=== PATIENT | female | born 1955 | race Caucasian/White ===

== ENCOUNTER 2022-03-23 01:40 | Outpatient (CLI) | payer BC, SELFPAY | END 2022-03-23 01:41 | disposition home or self-care (01) | PROVIDERS: Visit Provider Family Medicine | DX: F32.9 Major depressive disorder, single episode, unspecified (principal); F41.9 Anxiety disorder, unspecified | CPT/HCPCS: A0425; A0427 ==

== ENCOUNTER 2022-03-23 02:03 | Emergency (ER) | payer BC, SELFPAY ==
[2022-03-23 02:16] VITALS: BP 118/86; PULSE 88; RESP 22; TEMP 36.6; O2SAT 95; BMI 36.6
--- NOTE | 2022-03-23 02:56 | CRLHL7_ITS ---
For Patients: As a result of the Century Cures Act, medical imaging exams and procedure reports are released immediately into your electronic medical record. You may view this report before your referring provider. If you have questions, please contact your health care provider. CLINICAL HISTORY: Pain and swelling right lower extremity TECHNIQUE: A compression venous ultrasound exam was performed of the right lower extremity using hardy-scale imaging, color Doppler and spectral Doppler analysis. FINDINGS: Sonographic imaging of the right lower extremity demonstrates normal compressibility and color Doppler venous blood flow within the common femoral vein, deep femoral vein, and the proximal greater saphenous vein. Within the thigh, the femoral vein is patent and compressible. At a lower level, the popliteal and posterior tibial veins also show normal compressibility and color Doppler venous blood flow. Limited imaging of the contralateral groin demonstrates a normal spectral waveform and color Doppler venous blood flow within the left common femoral vein. IMPRESSION: Normal venous ultrasound exam. No evidence of deep vein thrombosis within the right lower extremity. Dictated by Libia Salinas MD @ 03/23/2022 4:22:59 AM (Electronically Signed)
--- NOTE | 2022-03-23 03:08 | CRLHL7_ITS ---
For Patients: As a result of the Cures Act, medical imaging exams and procedure reports are released immediately into your electronic medical record. You may view this report before your referring provider. If you have questions, please contact your health care provider. INDICATION: Swelling right knee. TECHNIQUE: Two-view study right knee. FINDINGS: No evidence of acute fracture or dislocation. No evidence of suprapatellar synovial effusion. Osteoarthritis medial joint compartment. IMPRESSION: 1. Osteoarthritis right knee. 2. No acute pathology. Dictated by Libia Salinas MD @ 03/23/2022 4:31:32 AM (Electronically Signed)
--- NOTE | 2022-03-23 03:18 | ED.NURSE ---
Lab in to draw blood.
[2022-03-23 03:31] LABS: Basophils Absolute Auto 0.04 K/uL (0.00-0.30); Basophils Percent Auto 0.7 % (0.0-3.0); Eosinophils Absolute Auto 0.13 K/uL (0.00-0.50); Eosinophils Percent Auto 2.3 % (0.0-7.0); Hematocrit 33.7 % (33.0-51.0); Hemoglobin* 10.5 gm/dL (12.0-16.0); Immature Granulocytes Abs Auto 0.01 K/uL (0.00-0.30); Lymphocytes Percent Auto 19.9 % (20-44); Mean Corpuscular HGB Conc 31 gm/dL (32-36); Mean Corpuscular Hemoglobin 28 pg (26-34); Mean Corpuscular Volume 90 fL (80-100); Monocytes Percent Auto 9.4 % (0.0-11.0); Neutrophils Percent Auto 67.5 % (42.0-72.0); Platelet Count* 226 K/uL (140-440); RDW Coefficient of Variation % 15.8 % (11.5-15.5); Red Blood Count 3.75 m/uL (4.00-5.20); White Blood Count* 5.63 K/uL (4.50-11.00)
--- NOTE | 2022-03-23 03:36 | ED.ANXIETY ---
HPI - Anxiety General Date Seen: 03/23/22 Chief Complaint: Unspecified Complaint, Adult Stated Complaint: Out of medications Time Seen by Provider: 03/23/22 02:56 Source: patient, EMS, RN notes reviewed and old records reviewed Mode of arrival: EMS Limitations: no limitations History of Present Illness HPI narrative: Sue is a very pleasant 66-year-old female with a history of anxiety and depression as well as chronic pain/pain medication overdose currently on Suboxone who comes to the emergency room via EMS for evaluation of anxiety. Initially patient states to me ?I need something for anxiety and I needed right now?. I do ask her to give me more history before we make a decision such as that and she is agreeable. Sue tell me that she has been feeling very down and lonely over the past weeks but is feeling a little bit worse in the past 3-4 days. She states that she is estranged from her daughter and although she is close to her sister, her sister lives far away in the [facility]. Currently Sue lives at [address] [facility] but in spite of people around her she does not socialize. In the past she had seen a counselor but has not done so recently. All of her medications including prescriptions for trazodone BuSpar Cymbalta go through Dr. Salcedo a physician at the [facility]. I do ask patient specifically about suicidality and she states that if she was not a [employer]ist that would likely be a possibility. She states that she really has nothing to live for and no purpose. She denies hallucinations and states ?I have all my faculties?. She is open to hospitalization and seeing a counselor. Patient has been out of what she describes as her Prozac for the last 4 days. She tells me that the anxiety had pre dated this event but is definitely worse. We do ascertain that she is actually on Cymbalta and not Prozac. She does admit to a few alcoholic drinks yesterday. She states that she has not been drinking daily but only a couple of times a week. Patient also notes that she has had a stuffed up nose. She has not had fever cough or sore throat. She notes that she is fully vaccinated with boosters against COVID. She notes however that when she is stuffed up and has a hard time breathing she feels like she cannot breathe and then she starts to panic. Upon EMS arrival they do note that she was hyperventilating complaining of not being able to breathe but with reassuring oxygen levels. Sue also states that she has been experiencing right knee pain which is odd for her. She states that occasionally gives out. She also notes that she has had unusual swelling in her right leg and foot. He states it was especially noticeable yesterday. She cannot think of any trauma to this area and denies pain. This has not happened to her in the past. She admits that she has not been active and has been just sitting in her apartment. MD complaint: anxiety Onset (ago): day(s) Related Data Home Medications Medication Instructions Recorded Confirmed Suboxone 03/23/22 buspirone 10 mg tablet 20 mg PO TID 03/23/22 03/23/22 cyclobenzaprine 5 mg tablet 5 mg PO Q8H 03/23/22 03/23/22 duloxetine 60 mg capsule,delayed 60 mg PO DAILY 03/23/22 03/23/22 release fluticasone propionate 50 2 spray INTRANASAL DAILY PRN 03/23/22 03/23/22 mcg/actuation nasal spray,suspension (Allergy Relief (fluticasone)) furosemide 20 mg tablet 20 mg PO QAM 03/23/22 03/23/22 loratadine 10 mg tablet 10 mg PO DAILY 03/23/22 03/23/22 metoprolol tartrate 50 mg tablet 50 mg PO Q12H 03/23/22 03/23/22 nystatin 100,000 unit/gram topical 1 applic TOPICAL TID 03/23/22 03/23/22 powder pravastatin 20 mg tablet 20 mg PO .QHS 03/23/22 03/23/22 trazodone 100 mg tablet 200 mg PO .QHS 03/23/22 03/23/22 Allergies Allergy/AdvReac Type Severity Reaction Status Date / Time methylprednisolone Allergy Intermediate gi upset, Verified 03/23/22 02:36 tachycardia hydromorphone [From Dilaudid] Allergy Mild itching Verified 03/23/22 02:36 NSAIDS (Non-Steroidal Allergy Mild gastric Verified 03/23/22 02:36 Anti-Inflamma byass Review of Systems Status of ROS: Reports: 10 or more systems reviewed and unremarkable except as noted in History and below Const: Reports: change in weight (History of gastric bypass. Notes that she has gained weight back.); Denies: fever or chills Eyes: Denies: change in vision ENMT: Denies: throat pain or ear pain Cardio: Reports: swelling of feet/ankles (Right foot and lower leg have been swollen over the past 48 hours.) and shortness of breath with exertion (When she feels like she cannot breathe through her nose.); Denies: chest pain Resp: Reports: shortness of breath (When she feels like she cannot breathe through her nose.) GI: Denies: abdominal pain or vomiting : Denies: painful urination Musculo: Reports: other (Right knee with pain on the medial aspect and occasionally gives out.); Denies: back pain or extremity pain Neuro: Denies: headache, numbness in extremities or weakness in extremities Psych: Reports: anxiety, panic attacks, hopelessness and loss of interest; Denies: visual hallucinations or auditory hallucinations [facility] Medical History (Updated 03/23/22 @ 08:10 by Holli Obando MD) Achlorhydria Alcohol abuse Alcohol use disorder, severe, dependence Anxiety state, unspecified B12 deficiency Bereavement Carpal tunnel syndrome Controlled substance agreement broken 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 Dysthymic disorder Fibromyalgia Gastritis Gastroduodenitis Gout, unspecified Major depressive disorder, recurrent severe without psychotic features Morbid (severe) obesity due to excess calories Symptomatic menopausal or female climacteric states Tobacco use disorder Unspecified essential hypertension Surgical History (Updated 03/23/22 @ 02:46 by Mag Carter RN) H/O gastric bypass Social History Smoking Status: Former smoker Do you use any of these nicotine containing products: None Second hand tobacco smoke exposure: No How often do you have a drink containing alcohol: 2-3 times a week How many standard drinks containing alcohol do you have on a typical day: 1 or 2 How often do you have six or more drinks on one occasion: Never AUDIT-C Alcohol total score: 3 Non-prescribed substance use: denies use service: No Exam Const: Vital Signs, click to edit/add: Vital Signs - 24 hr 03/23/22 02:16 03/23/22 05:47 Temperature 97.8 F Pulse Rate [Right] 88 92 Respiratory Rate 22 14 Blood Pressure [Le ft Upper Arm] 118/86 138/93 H Pulse Oximetry 95 96 Course Course Hospital Course: Sue presents with a variety of complaints. First she is experiencing depression and hopelessness. After our discussion she is centrally is stating that she will not commit suicide only because she is a [employer]ist. She is admittedly lonely. I do think she would benefit from mental health assessment by DEC. We will give her Cymbalta 60 mg as she has been without this for 4 days. At this time I would like to hold back from giving her anything stronger such as Ativan with her history of alcohol abuse and addictive tendencies. In regards to her right leg swelling I do think it would be important to obtain Doppler to rule out any evidence of a DVT given her inactivity, asymmetric swelling and sudden on set. Given her alcohol use and the fact that I do not see any recent visits to the medical clinic or ED I will also order laboratory values to include a CBC, comprehensive panel, urinalysis, ETOH, vitamin-D, magnesium, TSH. Will also administer multivitamin, folic acid, thiamin. Reevaluation(s) Reevaluation #1: Patient is ambulating to the bathroom. Seems to be feeling better. Radiology now present for ultrasound of the lower extremity. She has not made any further requests for anti anxiety medication. Time: 03:45 Reevaluation #2: Patient is noted to be sleeping soundly. She has received Cymbalta 60 mg, thigh min, folic acid and a multivitamin. Laboratory values are returning at this time. They are still waiting on a DEC assessment. Time: 04:00 Reevaluation #3: I have spoken with patient in regards to all of her complaints tonight. At this time we discussed her laboratory values and do place an Jsu wrap on her right knee. She states that this does seem to help. Still waiting on mental health assessment. Patient does states she would like to stay with us in the emergency room as long as possible. She does agree that she is feeling better this morning. Time: 07:00 Additional Reevaluation(s): 0815-patient is feeling better this morning. She is not agitated and agrees that she feels improved. She was able to sleep after having received her Cymbalta. I did again go over list of her diagnoses and my suggestions for follow-up care. We will need to provide her with about her for the taxi this morning. She feels comfortable going home as does the mental health affiliate manager. Contracts for safety. Vital Signs Vital signs: Initial Vital Signs Temperature 97.8 F 03/23/22 02:16 Temperature Source Temporal Artery Scan 03/23/22 02:16 Pulse Rate 88 03/23/22 02:16 Respiratory Rate 22 03/23/22 02:16 Blood Pressure 118/86 03/23/22 02:16 Blood Pressure Mean 96 03/23/22 02:16 Blood Pressure Position High-Fowlers 03/23/22 02:16 Pulse Oximetry 95 03/23/22 02:16 Oxygen Delivery Method 03/23/22 02:16 Vital Signs Temperature 97.8 F 03/23/22 02:16 Pulse Rate 88 03/23/22 02:16 Respiratory Rate 22 03/23/22 02:16 Blood Pressure 118/86 03/23/22 02:16 Pulse Oximetry 95 03/23/22 02:16 Temperature 97.8 F 03/23/22 02:16 Pulse Rate 92 03/23/22 05:47 Respiratory Rate 14 03/23/22 05:47 Blood Pressure 138/93 H 03/23/22 05:47 Pulse Oximetry 96 03/23/22 05:47 MDM - Anxiety MDM Narrative Medical decision making narrative: 1. Anxiety-we did through many hours for mental health assessment which is taking place currently. Patient does agree that she feels better this morning. She did receive Cymbalta 60 mg p.o.. She had been missing this medication for approximately 4 days. Upon her presentation and multiple times during our interview she did ask for something to help calm her down. With her history of alcohol abuse and normal vital signs I did not want to use Ativan. I asked patient to try Cymbalta 1st and fortunately she was able to successfully sleep through most of the night. Currently awaiting mental health assessors recommendations. 2. Lower extremity edema-ultrasound is negative for DVT. 3. Right knee pain-. Knee x-ray does show osteoarthritis. I did place a large Jus wrap the patient states that this seems to feel good. I would recommend physical therapy for strengthening. Will refer to her primary MD. 4. Alcohol use -alcohol level is 0 and LFTs are within normal limits. Did talk to the patient about the importance of avoiding alcohol as it is a depressant and will actually make her depression anxiety worse. 5. Anemia-hemoglobin of 10.5. Patient notes a occasional blood in her stools when she has multiple loose stools in a day. She has no abdominal pain at this time. This has been intermittent. She has not had a colonoscopy since 2012. I am asking that she speak with her primary MD about colonoscopy. Other cell lines reassuring with a normal white count and platelets. 6. Vitamin-D insufficiency-patient has a reading of 19 today. She is given 25 mcg of vitamin-D in the ED as a dose of magnesium 400 mg p.o.. Her magnesium today is 1.7. 7. Nasal congestion-patient is negative for COVID at this time. 8. Disposition- mental health assessment has been accomplished. Suggestions include decreasing isolation time by increasing activities especially through the jain. Suggestion also for returning back to the chemical dependency program previously attended. Return to the emergency room for worsening symptoms and as needed. Medical Records Attestation: I reviewed the patient's medical records. Lab Data Attestation: I reviewed the patient's lab results. Labs: Lab Results 03/23/22 03/23/22 03/23/22 Range/Units 03:15 03:22 03:22 WBC (4.50-11.00) K/uL RBC (4.00-5.20) m/uL Hgb (12.0-16.0) gm/dL Hct (33.0-51.0) % MCV (80-100) fL MCH (26-34) pg MCHC (32-36) gm/dL RDW Coeff of Manny (11.5-15.5) % Plt Count (140-440) K/uL Neut % (Auto) (42.0-72.0) % Lymph % (Auto) (20-44) % [place] % (Auto) (0.0-11.0) % Eos % (Auto) (0.0-7.0) % Baso % (Auto) (0.0-3.0) % Neut # (Auto) (1.7-7.0) K/uL Lymph # (Auto) (0.90-2.90) K/uL [place] # (Auto) (0.00-0.90) K/UL Eos # (Auto) (0.00-0.50) K/uL Baso # (Auto) (0.00-0.30) K/uL Abs Immat Gran (auto) (0.00-0.30) K/uL Sodium 138 (135-149) mmol/L Potassium 4.2 (3.6-5.1) mmol/L Chloride 104 (96-114) mmol/L Carbon Dioxide 27 (20-32) mmol/L BUN 13 (7-30) mg/dL Creatinine 0.6 (0.5-1.5) mg/dL Estimated Creat Clear 43.77 Glucose 120 H (60-115) mg/dL Calcium 8.9 (8.4-10.6) mg/dL Magnesium 1.7 (1.5-2.6) mg/dL Total Bilirubin 0.6 (0.1-1.5) mg/dL AST 20 (12-35) U/L ALT 14 (4-35) U/L Alkaline Phosphatase 72 (40-150) U/L Total Protein 6.7 (6.0-8.3) g/dL Albumin 4.3 (3.3-5.0) g/dL 25-OH Vitamin D Total (30-80) ng/mL TSH 1.010 (0.270-4.200) uIU/mL Ethyl Alcohol 0.01 (0.01-0.03) % SARS-CoV-2 (PCR) Negative SARS-CoV-2 (Negative) Influenza Type A (PCR) NEGATIVE (Negative) Influenza Type B (PCR) NEGATIVE (Negative) 03/23/22 03/23/22 Range/Units 03:22 03:22 WBC 5.63 (4.50-11.00) K/uL RBC 3.75 L (4.00-5.20) m/uL Hgb 10.5 L (12.0-16.0) gm/dL Hct 33.7 (33.0-51.0) % MCV 90 (80-100) fL MCH 28 (26-34) pg MCHC 31 L (32-36) gm/dL RDW Coeff of Manny 15.8 H (11.5-15.5) % Plt Count 226 (140-440) K/uL Neut % (Auto) 67.5 (42.0-72.0) % Lymph % (Auto) 19.9 L (20-44) % [place] % (Auto) 9.4 (0.0-11.0) % Eos % (Auto) 2.3 (0.0-7.0) % Baso % (Auto) 0.7 (0.0-3.0) % Neut # (Auto) 3.80 (1.7-7.0) K/uL Lymph # (Auto) 1.10 (0.90-2.90) K/uL [place] # (Auto) 0.50 (0.00-0.90) K/UL Eos # (Auto) 0.13 (0.00-0.50) K/uL Baso # (Auto) 0.04 (0.00-0.30) K/uL Abs Immat Gran (auto) 0.01 (0.00-0.30) K/uL Sodium (135-149) mmol/L Potassium (3.6-5.1) mmol/L Chloride (96-114) mmol/L Carbon Dioxide (20-32) mmol/L BUN (7-30) mg/dL Creatinine (0.5-1.5) mg/dL Estimated Creat Clear Glucose (60-115) mg/dL Calcium (8.4-10.6) mg/dL Magnesium (1.5-2.6) mg/dL Total Bilirubin (0.1-1.5) mg/dL AST (12-35) U/L ALT (4-35) U/L Alkaline Phosphatase (40-150) U/L Total Protein (6.0-8.3) g/dL Albumin (3.3-5.0) g/dL 25-OH Vitamin D Total 19 L (30-80) ng/mL TSH (0.270-4.200) uIU/mL Ethyl Alcohol (0.01-0.03) % SARS-CoV-2 (PCR) (Negative) Influenza Type A (PCR) (Negative) Influenza Type B (PCR) (Negative) Imaging Data Right LE US: Attestation: I have reviewed the pertinent imaging results. Radiologist's impression: No evidence of DVT knee XR: Attestation: I have reviewed the pertinent imaging results. My impression: No acute findings. Radiologist's impression: Osteoarthritis. No acute findings Discharge Plan Discharge Clinical Impression: Anxiety, Vitamin D insufficiency, Edema of right lower extremity, Anemia, Acute pain of right knee, Congested nose, Depression Patient Disposition: Home, Self-Care Condition: Improved Additional Instructions: 1. Anxiety-continue Cymbalta. Please try to failure prescription today. The mental health affiliate manager suggests you decrease isolation by starting more activities such as with your jain. She also suggest returning to your chemical dependency support group and restarting that program. Return to the emergency room for worsening symptoms. 2. Lower extremity edema-ultrasound is negative for DVT. 3. Right knee pain-. Knee x-ray does show osteoarthritis. Use Jus wrap around the knee as needed for comfort. I would suggest checking with your primary MD for possibility of physical therapy. 4. Alcohol use -I would avoid alcohol as this is a depressant and could be making your symptoms worse. 5. Anemia-hemoglobin of 10.5. Check with your primary MD about the need for a colonoscopy. 6. Vitamin-D insufficiency-your level was 19 today. Magnesium was 1.7. We did give you a dose of vitamin-D as well as magnesium. Suggest checking with your doctor about the need for daily vitamin D/magnesium dosing. 7. Nasal congestion-you are negative for COVID. Would suggest the use of Flonase for your nasal congestion. Activity Level: Activity as Tolerated Prescriptions: No Action metoprolol tartrate 50 mg tablet 50 mg PO Q12H 0RF loratadine 10 mg tablet 10 mg PO DAILY 0RF nystatin 100,000 unit/gram powder 1 applic topical TID 0RF trazodone 100 mg tablet 200 mg PO .QHS 0RF pravastatin 20 mg tablet 20 mg PO .QHS 0RF furosemide 20 mg tablet 20 mg PO QAM 0RF buspirone 10 mg tablet 20 mg PO TID 0RF Label Comments: TAKE 2 TABLETS BY MOUTH THREE TIMES DAILY Suboxone 0RF cyclobenzaprine 5 mg tablet 5 mg PO Q8H 0RF fluticasone propionate [Allergy Relief (fluticasone)] 50 mcg/actuation spray,suspension 2 spray intranasal DAILY [id number] Rx Instructions: administer into each nostril duloxetine 60 mg capsule,delayed release(DR/EC) 60 mg PO DAILY 0RF Follow Up/Referrals: Provider,Not a Local [Primary Care Provider] - Stand Alone Forms: [employer] Info Instructions
[2022-03-23 03:40] LABS: Slide Review Reflex No
[2022-03-23 03:48] LABS: Albumin* 4.3 g/dL (3.3-5.0); Chloride* 104 mmol/L (96-114); Potassium* 4.2 mmol/L (3.6-5.1); Sodium* 138 mmol/L (135-149)
[2022-03-23 03:50] LABS: Aspartate Amino Transferase* 20 U/L (12-35); Bilirubin Total* 0.6 mg/dL (0.1-1.5); Carbon Dioxide* 27 mmol/L (20-32); Creatinine* 0.6 mg/dL (0.5-1.5); Est. Creatinine Clearance* 43.77; Estimated Glomerular Filt Rate 98.93
[2022-03-23 03:51] LABS: Alanine Aminotransferase* 14 U/L (4-35); Alkaline Phosphatase* 72 U/L (40-150); Blood Urea Nitrogen* 13 mg/dL (7-30); Calcium* 8.9 mg/dL (8.4-10.6); Glucose* 120 mg/dL (60-115); Magnesium* 1.7 mg/dL (1.5-2.6); Total Protein* 6.7 g/dL (6.0-8.3)
[2022-03-23 03:52] LABS: Ethanol* 0.01 % (0.01-0.03)
[2022-03-23] MEDS: DULOXETINE 30 MG CAPSULE DR 60 MG PO (03:57)
[2022-03-23] MEDS: FOLIC ACID 1 MG TABLET PO (03:58)
[2022-03-23] MEDS: THIAMINE 100 MG TABLET PO (03:58)
[2022-03-23] MEDS: MULTIVITAMIN/MINERALS 1 TABLET 1 TAB PO (03:58)
[2022-03-23 04:07] LABS: PCR FLU A NEGATIVE (Negative); PCR FLU B NEGATIVE (Negative); SARS PCR* Negative SARS-CoV-2 (Negative)
[2022-03-23 04:40] LABS: Vitamin D 25 Hydroxy* 19 ng/mL (30-80)
[2022-03-23 05:47] VITALS: BP 138/93; PULSE 92; RESP 14; O2SAT 96
[2022-03-23] MEDS: MAGNESIUM OXIDE 400 MG TABLET PO (08:35)
== END 2022-03-23 09:27 | disposition home or self-care (01) ==
PROVIDERS: Emergency Provider Family Medicine
DX: F41.9 Anxiety disorder, unspecified (principal); R60.0 Localized edema; M25.561 Pain in right knee; R09.81 Nasal congestion
CPT/HCPCS: 36415; 73560; 80053; 81001; 82077; 82306; 83735; 84443; 85025; 87502; 87635; 93971; 99284; 99285; A9153; A9270

== ENCOUNTER 2022-04-08 10:17 | Outpatient (CLI) | payer BC, SELFPAY | END 2022-04-08 10:18 | disposition home or self-care (01) | LOC: AMB 04-22 12:44 | PROVIDERS: PCP Family Medicine; Visit Provider Family Medicine | DX: R06.09 Other forms of dyspnea (principal) | CPT/HCPCS: A0425; A0427 ==

== ENCOUNTER 2022-04-08 10:40 | Emergency (ER) | payer BC, SELFPAY ==
[2022-04-08 10:50] VITALS: BP 139/83; PULSE 91; RESP 18; TEMP 36.8; O2SAT 96; BMI 35.7
--- NOTE | 2022-04-08 11:02 | CRLHL7_ITS ---
For Patients: As a result of the 21st Century Cures Act, medical imaging exams and procedure reports are released immediately into your electronic medical record. You may view this report before your referring provider. If you have questions, please contact your health care provider. INDICATION: Leg swelling and dyspnea. COMPARISON: There are no prior transaxial studies of the chest, abdomen and pelvis TECHNIQUE: CT examination of the chest, abdomen and pelvis was performed following the uneventful intravenous administration of 95 cc of Omnipaque 350. Thin section axial images were obtained from the thoracic inlet through the pubic symphysis. Oral contrast was not administered. Sagittal and coronal reformatted imaging was performed. The chest portion of the study was performed as a pulmonary angiogram Please note that all CT scans at this facility use dose modulation, iterative reconstruction, and/or weight-based dosing when appropriate to reduce radiation dose to as low as reasonably achievable. FINDINGS: CHEST: Heart size normal. Mildly prominent mediastinal lymph nodes likely reactive. Hiatal hernia with reflux. Fluid is seen up to the thoracic inlet. There are atherosclerotic vascular calcifications. No pericardial effusion. Basilar lung opacities are likely related to atelectasis. A few nodules are identified at the lung bases the largest of which measures 6.5 millimeters in greatest dimension. A follow-up CT in 6 months is advised to reassess the nodules and the lymph nodes. No pleural effusion or pneumothorax. PULMONARY ARTERY DISTRIBUTION: There is no indication of pulmonary embolus LIVER/BILIARY SYSTEM:The liver is normal in size and configuration. There is no focal mass and there is no intra- or extra hepatic biliary ductal dilatation.Hepatic steatosis. Surgically absent gallbladder ADRENALS: Normal KIDNEYS, URETERS and BLADDER:The kidneys appear normal. No visible mass, calculus or hydronephrosis. The ureters and bladder as visualized appear normal. SPLEEN:Normal appearance. PANCREAS: Fatty infiltrated but otherwise unremarkable RETROPERITONEUM and MESENTERY: There is no mass, adenopathy or aortic aneurysm. Atherosclerotic vascular calcifications GASTROINTESTINAL SYSTEM: There is no evidence of diverticulitis, colitis, mechanical obstruction, or appendicitis. The small bowel as visualized appears normal.Mild fecal retention and scattered diverticulosis. Postsurgical changes related to gastric bypass. PELVIS: No mass, adenopathy or free fluid.No inguinal lymphadenopathy OSSEOUS STRUCTURES and ABDOMINAL WALL: Demineralization and degenerative change. No acute fracture or destructive process. No significant abdominal wall defect. OTHER: No free fluid or free air. IMPRESSION: 1. CHEST: There is no indication of pulmonary embolus. Mild bibasilar atelectasis. Mildly prominent mediastinal lymph nodes in a few scattered lung nodules for which a six-month follow-up CT is advised. No pleural effusion or pneumothorax. The esophagus is fluid-filled and mildly dilated probably due to reflux. other visible etiology for bilateral lower extremity swelling. Incidental nonacute appearing findings as above Please note that all CT scans at this facility use dose modulation, iterative reconstruction, and/or weight-based dosing when appropriate to reduce radiation dose to as low as reasonably achievable. Dictated by Caleb Lezama MD @ 04/08/2022 1:49:42 PM (Electronically Signed)
--- NOTE | 2022-04-08 11:02 | CRLHL7_ITS ---
For Patients: As a result of the Century Cures Act, medical imaging exams and procedure reports are released immediately into your electronic medical record. You may view this report before your referring provider. If you have questions, please contact your health care provider. INDICATION: Right leg swelling, shortness of breath. TECHNIQUE: Ultrasound venous duplex lower right extremity. Compression venous exam was performed using hardy-scale, color Doppler, and spectral Doppler analysis. COMPARISON: None. FINDINGS: Deep veins: Sonographic imaging demonstrates the right common femoral, deep femoral, superficial femoral, popliteal, posterior tibial and the contralateral left common femoral veins to be fully compressible with normal color Doppler blood flow. Superficial veins: Greater saphenous vein is fully compressible. No popliteal cyst. IMPRESSION: No evidence of deep venous thrombosis. Dictated by Jed Wilcox MD @ 04/08/2022 12:08:31 PM (Electronically Signed)
--- NOTE | 2022-04-08 11:07 | ED_ITS ---
HPI - General Adult General Time Seen by Provider: 11:07 Date Seen: 04/08/22 Chief complaint: Anxiety Stated complaint: Difficulty breathing Time Seen by Provider: 04/08/22 10:44 Source: patient Mode of arrival: EMS Limitations: no limitations History of Present Illness HPI narrative: Patient is a 66 year white female [facility] who comes in [facility] ambulance, with shortness of breath. She has had this happen at night, on weekends, she was going to the [facility] today and felt short of breath. She feels she may have an anxiety component. She has been battling with a swollen right leg for the last few weeks. Does not have a history of significant heart failure. She was evaluated in the ER had a negative ultrasound of the right lower extremity. She has no abdominal pain no chest pain currently. She had no chest pain this morning. No fevers chills, or COVID symptoms. Related Data Home Medications Medication Instructions Recorded Confirmed Suboxone 03/23/22 buspirone 10 mg tablet 20 mg PO TID 03/23/22 03/23/22 cyclobenzaprine 5 mg tablet 5 mg PO Q8H 03/23/22 03/23/22 duloxetine 60 mg capsule,delayed 60 mg PO DAILY 03/23/22 03/23/22 release fluticasone propionate 50 2 spray INTRANASAL DAILY PRN 03/23/22 03/23/22 mcg/actuation nasal spray,suspension (Allergy Relief (fluticasone)) furosemide 20 mg tablet 20 mg PO QAM 03/23/22 03/23/22 loratadine 10 mg tablet 10 mg PO DAILY 03/23/22 03/23/22 metoprolol tartrate 50 mg tablet 50 mg PO Q12H 03/23/22 03/23/22 nystatin 100,000 unit/gram topical 1 applic TOPICAL TID 03/23/22 03/23/22 powder pravastatin 20 mg tablet 20 mg PO .QHS 03/23/22 03/23/22 trazodone 100 mg tablet 200 mg PO .QHS 03/23/22 03/23/22 Allergies Allergy/AdvReac Type Severity Reaction Status Date / Time methylprednisolone Allergy Intermediate gi upset, Verified 03/23/22 02:36 tachycardia hydromorphone [From Dilaudid] Allergy Mild itching Verified 03/23/22 02:36 NSAIDS (Non-Steroidal Allergy Mild gastric Verified 03/23/22 02:36 Anti-Inflamma byass Review of Systems Status of ROS: Reports: 10 or more systems reviewed and unremarkable except as noted in History and below [facility] Medical History Achlorhydria Alcohol abuse Alcohol use disorder, severe, dependence Anxiety state, unspecified B12 deficiency Bereavement Carpal tunnel syndrome Controlled substance agreement broken 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 Dysthymic disorder Fibromyalgia Gastritis Gastroduodenitis Gout, unspecified Major depressive disorder, recurrent severe without psychotic features Morbid (severe) obesity due to excess calories Symptomatic menopausal or female climacteric states Tobacco use disorder Unspecified essential hypertension Surgical History H/O gastric bypass Social History Smoking Status: Former smoker Do you use any of these nicotine containing products: None Second hand tobacco smoke exposure: No How often do you have a drink containing alcohol: 2-3 times a week How many standard drinks containing alcohol do you have on a typical day: 1 or 2 How often do you have six or more drinks on one occasion: Never AUDIT-C Alcohol total score: 3 Non-prescribed substance use: denies use service: No Exam Narrative: Exam Narrative: Objective: The patient has stable vital signs, appears in no apparent distress, feels back to baseline. Vital signs as above HEENT is unremarkable, no scleral icterus, mouth clear no facial asymmetry Neck is supple Chest is clear no rales or wheezing Heart rhythm regular without murmur Abdomen benign soft obese nontender, no prominent masses Extremities show 2+ edema in the right lower extremity 1+ to trace in the left, no palpable venous cords in the right lower extremity, no discoloration or cellulitic change Skin is warm and dry Neurologic is nonfocal Const: Vital Signs, click to edit/add: Vital Signs - 24 hr 04/08/22 10:50 04/08/22 14:06 04/08/22 15:05 Temperature 98.2 F Pulse Rate [Right Pulse Oximeter] 91 92 90 Respiratory Rate 18 18 18 Blood Pressure [Ri ght Upper Arm] 139/83 154/79 H 134/88 Pulse Oximetry 96 97 94 Course Vital Signs Vital signs: Initial Vital Signs Temperature 98.2 F 04/08/22 10:50 Temperature Source Temporal Artery Scan 04/08/22 10:50 Pulse Rate 91 04/08/22 10:50 Respiratory Rate 18 04/08/22 10:50 Blood Pressure 139/83 04/08/22 10:50 Blood Pressure Mean 101 04/08/22 10:50 Blood Pressure Position Sitting 04/08/22 10:50 Pulse Oximetry 96 04/08/22 10:50 Oxygen Delivery Method 04/08/22 10:50 Vital Signs Temperature 98.2 F 04/08/22 10:50 Pulse Rate 91 04/08/22 10:50 Respiratory Rate 18 04/08/22 10:50 Blood Pressure 139/83 04/08/22 10:50 Pulse Oximetry 96 04/08/22 10:50 Temperature 98.2 F 04/08/22 10:50 Pulse Rate 90 04/08/22 15:05 Respiratory Rate 18 04/08/22 15:05 Blood Pressure 134/88 04/08/22 15:05 Pulse Oximetry 94 04/08/22 15:05 Medical Decision Making [facility] Narrative Medical decision making narrative: Patient's complex medical history, given this and given her shortness of breath I think doing a troponin would be appropriate, as well as CT scan of the chest, COVID test. Because of her swelling in her leg would do a CT of her abdomen pelvis with contrast make sure there is no obstruction, repeat an ultrasound of her leg. Ativan for anxiety. Laboratory studies as well. Differential for the shortness of breath be acute coronary syndrome, PE, pulmonary insult, anxiety, metabolic disorder. Addendum: The patient's EKG by my read shows normal sinus rhythm normal EKG. Chest abdomen and pelvic CT scan showed no marked abnormality she does have some pulmonary nodules that need follow-up in 6-9 months. But no acute changes today. No reason to explain any venous obstruction to the right lower extremity given it is swollen nature. Negative venous ultrasound of the right lower e xtremity. Patient feels better with the IV Ativan. Would recommend she discuss ongoing mental health and anxiety management with her primary care physician as well as follow-up on her right leg swelling. She was in agreement with this. Addendum: Patient's EKG by my read shows normal sinus rhythm nor normal EKG Lab Data Labs: Lab Results 04/08/22 04/08/22 04/08/22 Range/Units 12:00 12:00 12:00 WBC 5.61 (4.50-11.00) K/uL RBC 3.66 L (4.00-5.20) m/uL Hgb 10.1 L (12.0-16.0) gm/dL Hct 33.0 (33.0-51.0) % MCV 90 (80-100) fL MCH 28 (26-34) pg MCHC 31 L (32-36) gm/dL RDW Coeff of Manny 15.5 (11.5-15.5) % Plt Count 207 (140-440) K/uL Neut % (Auto) 70.9 (42.0-72.0) % Lymph % (Auto) 18.2 L (20-44) % Crawford % (Auto) 8.6 (0.0-11.0) % Eos % (Auto) 1.4 (0.0-7.0) % Baso % (Auto) 0.7 (0.0-3.0) % Neut # (Auto) 3.98 (1.7-7.0) K/uL Lymph # (Auto) 1.00 (0.90-2.90) K/uL Crawford # (Auto) 0.50 (0.00-0.90) K/UL Eos # (Auto) 0.08 (0.00-0.50) K/uL Baso # (Auto) 0.04 (0.00-0.30) K/uL Abs Immat Gran (auto) 0.01 (0.00-0.30) K/uL Sodium 137 (135-149) mmol/L Potassium 4.4 (3.6-5.1) mmol/L Chloride 105 (96-114) mmol/L Carbon Dioxide 26 (20-32) mmol/L BUN 16 (7-30) mg/dL Creatinine 0.7 (0.5-1.5) mg/dL Estimated Creat Clear 43.77 Estimated GFR 95 ml/min Glucose 124 H (60-115) mg/dL Lactate 1.4 (0.5-1.9) mmol/L Calcium 8.9 (8.4-10.6) mg/dL Total Bilirubin 0.8 (0.1-1.5) mg/dL Direct Bilirubin 0.2 (0.0-0.5) mg/dL AST 26 (12-35) U/L ALT 14 (4-35) U/L Alkaline Phosphatase 86 (40-150) U/L C-Reactive Protein < 0.5 L (0.5-1.0) mg/dL NT-Pro-B Natriuret Pep 952 H (0-125) PG/mL Total Protein 7.2 (6.0-8.3) g/dL Albumin 4.3 (3.3-5.0) g/dL Ethyl Alcohol < 0.01 L (0.01-0.03) % SARS-CoV-2 (PCR) (Negative) POC Troponin I (0.01-0.04) ng/ml 04/08/22 04/08/22 Range/Units 12:00 12:00 WBC (4.50-11.00) K/uL RBC (4.00-5.20) m/uL Hgb (12.0-16.0) gm/dL Hct (33.0-51.0) % MCV (80-100) fL MCH (26-34) pg MCHC (32-36) gm/dL RDW Coeff of Manny (11.5-15.5) % Plt Count (140-440) K/uL Neut % (Auto) (42.0-72.0) % Lymph % (Auto) (20-44) % Crawford % (Auto) (0.0-11.0) % Eos % (Auto) (0.0-7.0) % Baso % (Auto) (0.0-3.0) % Neut # (Auto) (1.7-7.0) K/uL Lymph # (Auto) (0.90-2.90) K/uL Crawford # (Auto) (0.00-0.90) K/UL Eos # (Auto) (0.00-0.50) K/uL Baso # (Auto) (0.00-0.30) K/uL Abs Immat Gran (auto) (0.00-0.30) K/uL Sodium (135-149) mmol/L Potassium (3.6-5.1) mmol/L Chloride (96-114) mmol/L Carbon Dioxide (20-32) mmol/L BUN (7-30) mg/dL Creatinine (0.5-1.5) mg/dL Estimated Creat Clear Estimated GFR ml/min Glucose (60-115) mg/dL Lactate (0.5-1.9) mmol/L Calcium (8.4-10.6) mg/dL Total Bilirubin (0.1-1.5) mg/dL Direct Bilirubin (0.0-0.5) mg/dL AST (12-35) U/L ALT (4-35) U/L Alkaline Phosphatase (40-150) U/L C-Reactive Protein (0.5-1.0) mg/dL NT-Pro-B Natriuret Pep (0-125) PG/mL Total Protein (6.0-8.3) g/dL Albumin (3.3-5.0) g/dL Ethyl Alcohol (0.01-0.03) % SARS-CoV-2 (PCR) Negative SARS-CoV-2 (Negative) POC Troponin I 0.01 (0.01-0.04) ng/ml Discharge Plan Discharge Clinical Impression: Shortness of breath, Acute anxiety Patient Disposition: Home w/ Parent or Adult Condition: Improved Additional Instructions: Light activity, continue home medications, recheck with primary care doctor in the next few days for reassessment. Return to the ED as needed. Recommend recheck pulmonary nodules with CT scan the next 6-9 months can discuss this with her primary care doctor. Follow up appointment scheduled at the [facility] on 04/21 with a 9:5 0am arrival time. [address] [place] [address] Activity Level: Light activity Discharge Diet: Heart Healthy (2 gm sodium, low fat) Prescriptions: No Action metoprolol tartrate 50 mg tablet 50 mg PO Q12H 0RF loratadine 10 mg tablet 10 mg PO DAILY 0RF nystatin 100,000 unit/gram powder 1 applic topical TID 0RF trazodone 100 mg tablet 200 mg PO .QHS 0RF pravastatin 20 mg tablet 20 mg PO .QHS 0RF furosemide 20 mg tablet 20 mg PO QAM 0RF buspirone 10 mg tablet 20 mg PO TID 0RF Label Comments: TAKE 2 TABLETS BY MOUTH THREE TIMES DAILY Suboxone 0RF cyclobenzaprine 5 mg tablet 5 mg PO Q8H 0RF fluticasone propionate [Allergy Relief (fluticasone)] 50 mcg/actuation spray,suspension 2 spray intranasal DAILY [id number] Rx Instructions: administer into each nostril duloxetine 60 mg capsule,delayed release(DR/EC) 60 mg PO DAILY 0RF Follow Up/Referrals: Provider,Not a Local [Referring] - Stand Alone Forms: [employer] Info Instructions
[2022-04-08 12:13] LABS: Lactate* 1.4 mmol/L (0.5-1.9)
[2022-04-08 12:16] LABS: Basophils Absolute Auto 0.04 K/uL (0.00-0.30); Basophils Percent Auto 0.7 % (0.0-3.0); Eosinophils Absolute Auto 0.08 K/uL (0.00-0.50); Eosinophils Percent Auto 1.4 % (0.0-7.0); Hemoglobin* 10.1 gm/dL (12.0-16.0); Immature Granulocytes Abs Auto 0.01 K/uL (0.00-0.30); Lymphocytes Percent Auto 18.2 % (20-44); Mean Corpuscular HGB Conc 31 gm/dL (32-36); Mean Corpuscular Hemoglobin 28 pg (26-34); Mean Corpuscular Volume 90 fL (80-100); Monocytes Percent Auto 8.6 % (0.0-11.0); Neutrophils Absolute Auto 3.98 K/uL (1.7-7.0); Neutrophils Percent Auto 70.9 % (42.0-72.0); Platelet Count* 207 K/uL (140-440); RDW Coefficient of Variation % 15.5 % (11.5-15.5); Red Blood Count 3.66 m/uL (4.00-5.20); White Blood Count* 5.61 K/uL (4.50-11.00)
[2022-04-08 12:30] LABS: Slide Review Reflex No
[2022-04-08 12:32] LABS: Troponin, Point-of-Care* 0.01 ng/ml (0.01-0.04)
[2022-04-08 12:44] LABS: Albumin* 4.3 g/dL (3.3-5.0); Chloride* 105 mmol/L (96-114); Sodium* 137 mmol/L (135-149)
[2022-04-08 12:45] LABS: Potassium* 4.4 mmol/L (3.6-5.1)
[2022-04-08 12:46] LABS: Creatinine* 0.7 mg/dL (0.5-1.5); Est. Creatinine Clearance* 43.77; Estimated Glomerular Filt Rate 95 ml/min
[2022-04-08 12:47] LABS: Alkaline Phosphatase* 86 U/L (40-150); Aspartate Amino Transferase* 26 U/L (12-35); Bilirubin Direct* 0.2 mg/dL (0.0-0.5); Bilirubin Total* 0.8 mg/dL (0.1-1.5); Blood Urea Nitrogen* 16 mg/dL (7-30); Carbon Dioxide* 26 mmol/L (20-32); Glucose* 124 mg/dL (60-115); Total Protein* 7.2 g/dL (6.0-8.3)
[2022-04-08 12:48] LABS: Alanine Aminotransferase* 14 U/L (4-35); Calcium* 8.9 mg/dL (8.4-10.6)
[2022-04-08] MEDS: LORazepam 2 MG/ML inj 1 MG IVP (12:48)
[2022-04-08 12:50] LABS: C Reactive Protein* < 0.5 mg/dL (0.5-1.0); Ethanol* < 0.01 % (0.01-0.03)
[2022-04-08 12:55] LABS: NT Pro B Type NatriureticPept* 952 PG/mL (0-125)
[2022-04-08] MEDS: ASPIRIN 81 MG TAB.CHEW 324 MG PO (12:56)
[2022-04-08] MEDS: 0.9 % SODIUM CHLORIDE 500 ML 500 ML IV (12:57)
[2022-04-08 13:07] LABS: SARS PCR* Negative SARS-CoV-2 (Negative)
[2022-04-08 14:06] VITALS: BP 154/79; PULSE 92; RESP 18; O2SAT 97
[2022-04-08 15:05] VITALS: BP 134/88; PULSE 90; RESP 18; O2SAT 94
== END 2022-04-08 15:08 | disposition home or self-care (01) ==
PROVIDERS: Emergency Provider Family Medicine; PCP Family Medicine
DX: R06.02 Shortness of breath (principal); F41.9 Anxiety disorder, unspecified
CPT/HCPCS: 36415; 71260; 74177; 80048; 80076; 82077; 83605; 83880; 84484; 85025; 86140; 87635; 93005; 93971; 96374; 99285; A9270; J2060; J7120; Q9967

== ENCOUNTER 2022-07-06 16:22 | Outpatient (CLI) | payer BC, SELFPAY | END 2022-07-06 16:23 | disposition home or self-care (01) | LOC: AMB 07-07 10:51 | PROVIDERS: PCP Family Medicine; Visit Provider Family Medicine | DX: K62.5 Hemorrhage of anus and rectum (principal); R10.9 Unspecified abdominal pain | CPT/HCPCS: A0425; A0427 ==

== ENCOUNTER 2022-07-06 16:58 | Inpatient (IN) | payer MEDICARE, BC, SELFPAY ==
[2022-07-06 17:08] VITALS: BP 115/58; PULSE 92; RESP 18; TEMP 36.4; O2SAT 95; BMI 33.7
--- NOTE | 2022-07-06 17:21 | ED_ITS ---
HPI - General Adult General Time Seen by Provider: 17:22 Date Seen: 07/06/22 Chief complaint: Abdominal Pain Stated complaint: Rectal Bleeding Time Seen by Provider: 07/06/22 17:21 Source: patient and RN notes reviewed Mode of arrival: EMS Limitations: no limitations History of Present Illness HPI narrative: Javier is a 66-year-old female coming with complaint of abdominal pain and rectal bleeding. She was brought in from home at [address] [facility] apartment by EMS. She right away asked if she can have something for pain. I have reviewed with her we need to evaluate 1st. She states EMS tried to put an IV and were going to give her something for pain but they could not get the IV in. Again I a.m. stressed to her to allow me through my evaluation and we will consider our options. I did review with her that I typically do not give a lot of pain medicines to people that her drinking. She states she last drank this morning. She states she did not start drinking and tell age 61 per report. She developed sudden onset of abdominal pain. She points to her lower and mid abdomen where it is somewhat diffusely tender. She states she has had a gastric bypass before. She only uses Tylenol, no NSAIDs on account of the gastric bypass. She is not exactly sure what type of gastric bypass she has had. She denies any rectal bleeding prior to this. Last night she felt like she was going to have to defecate and then went and did not have anything. After that she started having 2 episodes of bright red blood per rectum. She had 1 today. She has not necessarily feeling lightheaded or dizzy but admits she has not been up. No nausea or vomiting. No fevers or chills. She does not endorse any other blood thinners. No aspirin. She thinks her last colonoscopy was about 10 years ago. In review of her chart, she was in on 03/23/2022 for other issues, hemoglobin was found to be 10.5. The physician got a history that she was having intermittent blood in her stools with multiple stools daily but no abdominal pain. They agreed to have her follow up with her primary care provider and discuss colonoscopy is the last colonoscopy was in 2012. Related Data Home Medications Medication Instructions Recorded Confirmed Suboxone 03/23/22 buspirone 10 mg tablet 20 mg PO TID 03/23/22 03/23/22 cyclobenzaprine 5 mg tablet 5 mg PO Q8H 03/23/22 03/23/22 duloxetine 60 mg capsule,delayed 60 mg PO DAILY 03/23/22 03/23/22 release fluticasone propionate 50 2 spray intranasal DAILY PRN 03/23/22 03/23/22 mcg/actuation nasal spray,suspension (Allergy Relief (fluticasone)) furosemide 20 mg tablet 20 mg PO QAM 03/23/22 03/23/22 loratadine 10 mg tablet 10 mg PO DAILY 03/23/22 03/23/22 metoprolol tartrate 50 mg tablet 50 mg PO Q12H 03/23/22 03/23/22 nystatin 100,000 unit/gram topical 1 applic topical TID 03/23/22 03/23/22 powder pravastatin 20 mg tablet 20 mg PO .QHS 03/23/22 03/23/22 trazodone 100 mg tablet 200 mg PO .QHS 03/23/22 03/23/22 Allergies Allergy/AdvReac Type Severity Reaction Status Date / Time methylprednisolone Allergy Intermediate gi upset, Verified 03/23/22 02:36 tachycardia hydromorphone [From Dilaudid] Allergy Mild itching Verified 03/23/22 02:36 NSAIDS (Non-Steroidal Allergy Mild gastric Verified 03/23/22 02:36 Anti-Inflamma byass Review of Systems Status of ROS: Reports: 10 or more systems reviewed and unremarkable except as noted in History and below [facility] Medical History Achlorhydria Alcohol abuse Alcohol use disorder, severe, dependence Anxiety state, unspecified B12 deficiency Bereavement Carpal tunnel syndrome Controlled substance agreement broken 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 Dysthymic disorder Fibromyalgia Gastritis Gastroduodenitis Gout, unspecified Major depressive disorder, recurrent severe without psychotic features Morbid (severe) obesity due to excess calories Symptomatic menopausal or female climacteric states Tobacco use disorder Unspecified essential hypertension Surgical History H/O gastric bypass Social History Smoking Status: Former smoker Do you use any of these nicotine containing products: None Second hand tobacco smoke exposure: No How often do you have a drink containing alcohol: 2-3 times a week How many standard drinks containing alcohol do you have on a typical day: 3 or 4 How often do you have six or more drinks on one occasion: Never AUDIT-C Alcohol total score: 4 Non-prescribed substance use: denies use service: No Exam Const: Vital Signs, click to edit/add: Vital Signs - 24 hr 07/06/22 17:08 07/06/22 17:33 07/06/22 18:33 Temperature 97.5 F L Pulse Rate [Right Pulse Oximeter] 92 96 Respiratory Rate 18 13 Blood Pressure [Ri ght Upper Arm] 115/58 L 119/54 L Pulse Oximetry 95 95 Oxygen Delivery Me thod Room Air Documenting provider has reviewed patient's vital signs: yes Common normals: no apparent distress, oriented x3, no limitations and alert General appearance: cooperative and comfortable Nutritional appearance: overweight HENMT: Common normals: normocephalic, head/scalp atraumatic, hearing grossly normal bilaterally, external ears normal, external nose normal, nasal mucous membranes and turbinates normal, moist oral mucous membranes, oropharynx normal, dentition normal and gingiva normal Head and scalp: normocephalic and atraumatic Nose: external nose normal and nasal mucous membranes and t urbinates normal External ear: external ears normal Eye: Common normals: PERRL, EOMs intact bilaterally, conjunctivae normal and no scleral icterus Conjunctiva: conjunctiva(e) normal Pupil: PERRL Neck & C-Spine: Common normals: full ROM, no lymphadenopathy, supple, no meningeal signs, no JVD and thyroid normal Thyroid: thyroid normal Resp: Common normals: normal respiratory effort, no retractions, no use of accessory muscles and clear to auscultation bilaterally Auscultation: clear to auscultation bilaterally Cardio: Common normals: no JVD, regular rate, regular rhythm, S1 normal heart sound, S2 normal heart sound, no gallops, no clicks and no murmurs Rate: regular rate Rhythm: regular rhythm Heart sounds: S1 normal and S2 normal GI: Common normals: Normal to inspection, nondistended, normoactive bowel sounds present and soft to palpation Palpation: soft Other: In her supraumbilical midline abdomen can feel an area that might be a ventral hernia, is mildly tender but would not say it is feeling like it is incarcerated. Otherwise I do not have any rebound or guarding on this patient. Body habitus makes it difficult to palpate but do not feel any masses. : Other: Dried blood smeared in the inner buttock area. Do not see any external evidence of active bleeding. Digital rectal exam without any definite masses. There is dark blood on the finger that is obviously guaiac positive. Extremity: Other: Has thickened lower extremities without any true pitting edema. No calf tenderness, is moving all extremities equally. Neuro: Common normals: oriented x3 Sensorium/orientation: alert Meningeal signs: no meningeal signs Course Course Hospital Course: I am going to obtain imaging on this patient form of a CT with IV contrast, get appropriate labs, do a type and screen. We will establish IV access, obtain EKG and have her on pulse oximetry and cardiac monitoring. Her differential is vast, she has had a gastric bypass has been drinking alcohol with bright red blood per rectum. Likely lower GI bleeding which certainly could be rectal varices. Could be diverticular bleeding. This could be a mass. Less likely to be upper GI bleeding. Abdominal pain includes but is not limited to complications from her gastric bypass, hernia, hepatitis, pancreatitis. We will need to do a full workup on this patient to better delineate her symptomatology. Consultations Consultation #1: Have contacted our hospitalist regarding this patient. She has accepted care. As I was talking to her about the labs I a see that I neglected to order PT PTT, did do a lab add on and will let the lab know this. Right after I talked to the hospitalist, nursing staff noted patient was up to the bathroom and there was quite a bit of blood in the toilet. Did contact the hospitalist back. They will recheck a hemoglobin. I let them know that a head type and crossed 1 unit but it is on hold. The hospitalist Dr. Huerta is also going to take care of the potassium. She is ready to see the patient and will be assuming care shortly. Time: 20:25 Vital Signs Vital signs: Initial Vital Signs Temperature 97.5 F L 07/06/22 17:08 Temperature Source Temporal Artery Scan 07/06/22 17:08 Pulse Rate 92 07/06/22 17:08 Respiratory Rate 18 07/06/22 17:08 Blood Pressure 115/58 L 07/06/22 17:08 Blood Pressure Mean 77 07/06/22 17:08 Blood Pressure Position Sitting 07/06/22 17:08 Pulse Oximetry 95 07/06/22 17:08 Oxygen Delivery Method 07/06/22 17:08 Vital Signs Temperature 97.5 F L 07/06/22 17:08 Pulse Rate 92 07/06/22 17:08 Respiratory Rate 18 07/06/22 17:08 Blood Pressure 115/58 L 07/06/22 17:08 Pulse Oximetry 95 07/06/22 17:08 Oxygen Delivery Method 07/06/22 17:08 Temperature 97.5 F L 07/06/22 17:08 Pulse Rate 96 07/06/22 18:33 Respiratory Rate 13 07/06/22 18:33 Blood Pressure 119/54 L 07/06/22 18:33 Pulse Oximetry 95 07/06/22 17:33 Oxygen Delivery Method 07/06/22 17:08 Medical Decision Making Lab Data Lab results reviewed: Yes I reviewed the patient's lab results Labs: Lab Results 07/06/22 07/06/22 07/06/22 Range/Units 17:45 18:20 18:20 WBC 4.89 (4.50-11.00) K/uL RBC 2.84 L (4.00-5.20) m/uL Hgb 7.4 L* (12.0-16.0) gm/dL Hct 24.7 L (33.0-51.0) % MCV 87 (80-100) fL MCH 26 (26-34) pg MCHC 30 L (32-36) gm/dL RDW Coeff of Manny 16.3 H (11.5-15.5) % Plt Count 236 (140-440) K/uL Neut % (Auto) 58.3 (42.0-72.0) % Lymph % (Auto) 30.5 (20-44) % Rankin % (Auto) 8.2 (0.0-11.0) % Eos % (Auto) 1.4 (0.0-7.0) % Baso % (Auto) 1.4 (0.0-3.0) % Neut # (Auto) 2.85 (1.7-7.0) K/uL Lymph # (Auto) 1.49 (0.90-2.90) K/uL Rankin # (Auto) 0.40 (0.00-0.90) K/UL Eos # (Auto) 0.07 (0.00-0.50) K/uL Baso # (Auto) 0.07 (0.00-0.30) K/uL Abs Immat Gran (auto) 0.01 (0.00-0.30) K/uL ESR (2-20) mm/hr Sodium (135-149) mmol/L Potassium (3.6-5.1) mmol/L Chloride (96-114) mmol/L Carbon Dioxide (20-32) mmol/L BUN (7-30) mg/dL Creatinine (0.5-1.5) mg/dL Estimated Creat Clear Estimated GFR ml/min Glucose (60-115) mg/dL Lactate (0.5-1.9) mmol/L Calcium (8.4-10.6) mg/dL Total Bilirubin (0.1-1.5) mg/dL AST (12-35) U/L ALT (4-35) U/L Alkaline Phosphatase (40-150) U/L C-Reactive Protein (0.5-1.0) mg/dL Total Protein (6.0-8.3) g/dL Albumin (3.3-5.0) g/dL Lipase (23-300) U/L Ethyl Alcohol (0.01-0.03) % SARS-CoV-2 (PCR) Negative SARS-CoV-2 (Negative) Blood Type A Positive Antibody Screen NEGATIVE Crossmatch (AHG) See Detail 07/06/22 07/06/22 07/06/22 Range/Units 18:20 18:20 18:20 WBC (4.50-11.00) K/uL RBC (4.00-5.20) m/uL Hgb (12.0-16.0) gm/dL Hct (33.0-51.0) % MCV (80-100) fL MCH (26-34) pg MCHC (32-36) gm/dL RDW Coeff of Manny (11.5-15.5) % Plt Count (140-440) K/uL Neut % (Auto) (42.0-72.0) % Lymph % (Auto) (20-44) % Rankin % (Auto) (0.0-11.0) % Eos % (Auto) (0.0-7.0) % Baso % (Auto) (0.0-3.0) % Neut # (Auto) (1.7-7.0) K/uL Lymph # (Auto) (0.90-2.90) K/uL Rankin # (Auto) (0.00-0.90) K/UL Eos # (Auto) (0.00-0.50) K/uL Baso # (Auto) (0.00-0.30) K/uL Abs Immat Gran (auto) (0.00-0.30) K/uL ESR 17 (2-20) mm/hr Sodium 135 (135-149) mmol/L Potassium 3.0 L (3.6-5.1) mmol/L Chloride 100 (96-114) mmol/L Carbon Dioxide 24 (20-32) mmol/L BUN 10 (7-30) mg/dL Creatinine 0.5 (0.5-1.5) mg/dL Estimated Creat Clear 45.78 Estimated GFR 103 ml/min Glucose 113 (60-115) mg/dL Lactate 3.1 H (0.5-1.9) mmol/L Calcium 8.1 L (8.4-10.6) mg/dL Total Bilirubin 1.0 (0.1-1.5) mg/dL AST 36 H (12-35) U/L ALT 19 (4-35) U/L Alkaline Phosphatase 68 (40-150) U/L C-Reactive Protein 0.8 (0.5-1.0) mg/dL Total Protein 6.1 (6.0-8.3) g/dL Albumin 3.8 (3.3-5.0) g/dL Lipase 61 (23-300) U/L Ethyl Alcohol 0.14 H (0.01-0.03) % SARS-CoV-2 (PCR) (Negative) Blood Type Antibody Screen Crossmatch (AHG) Imaging Data CT scan - abdomen: Attestation: I have reviewed the pertinent imaging results. Radiologist's impression: Patient: JAVIER WESLEY Facility:?[facility] Patient ID:?[id number] Site Patient ID:?[id number]. Site :?[id number] Study:?CT Abdomen/Pelvis W ISOVUE 370-07/06/2022 7:43:50 PM Ordering Physician:Wilmer Villafana Final Report: INDICATION: Abdominal pain TECHNIQUE: CT abdomen and pelvis acquired with 93 cc Isovue 370 IV contrast. COMPARISON: CT March 2022. FINDINGS: Lower chest: Motion within the lung bases degrades fine detail evaluation. Coronary artery calcifications. ABDOMEN: Liver: Normal enhancement. No focal suspicious hepatic lesions. Gallbladder and biliary: Cholecystectomy prominence of the bile ducts which can be seen in a normal post cholecystectomy setting. Spleen: Normal size and enhancement. Pancreas: Normal enhancement without peripancreatic inflammatory changes or ductal dilatation. Adrenal glands: Normal adrenal glands. Kidneys and ureters: Normal enhancement. No radio-opaque calculi. No hydroureteronephrosis. Subcentimeter hypodensities are too small to characterize however statistically represent cysts. GI tract: Changes of Leonardo-en-Y gastric bypass. Normal caliber small and large bowel loops. Normal appendix. Vascular structures: Patent abdominal aorta with atherosclerotic vascular calcifications. Severe atherosclerotic calcifications. Patent portosplenic confluence, portal veins, and hepatic veins. Lymph nodes: No lymphadenopathy in the abdomen or pelvis by size criteria. Peritoneum: No free air, free fluid, or focal drainable fluid collection. PELVIS: Genitourinary system: Normal urinary bladder. Hysterectomy. Ovaries not visualized. SKELETAL STRUCTURES AND SOFT TISSUES: Left of midline supraumbilical fat containing ventral hernia axial images 40-58. multilevel lumbar spondylosis most prominent at L3-L4. IMPRESSION: 1. No acute abdominal or pelvic process. No obstruction. No hydroureteronephrosis. Normal appendix. 2. Left of midline supraumbilical fat containing ventral hernia. Please note that all CT scans at this facility use dose modulation, iterative reconstruction, and/or weight-based dosing when appropriate to reduce radiation dose to as low as reasonably achievable. Dictated by Prosper Hernandez MD @ 07/06/2022 8:11:19 PM (Electronic Signature) ECG Data Attestation: I personally reviewed and interpreted this ECG as follows: (Sinus rhythm, 91 beats per minute. No definitive ischemia but prolonged QT corrected at 506 milliseconds.) Critical Care Time Critical Care Time Critical Care Time: No Discharge Plan Discharge Clinical Impression: Alcohol intoxication, Anemia, BRBPR (bright red blood per rectum), Hypokalemia Patient Disposition: Admitted As Inpatient Condition: Unchanged
[2022-07-06 17:33] VITALS: O2SAT 95
--- NOTE | 2022-07-06 17:33 | CRLHL7_ITS ---
For Patients: As a result of the Century Cures Act, medical imaging exams and procedure reports are released immediately into your electronic medical record. You may view this report before your referring provider. If you have questions, please contact your health care provider. INDICATION: Abdominal pain TECHNIQUE: CT abdomen and pelvis acquired with 93 cc Isovue 370 IV contrast. COMPARISON: CT March 2022. FINDINGS: Lower chest: Motion within the lung bases degrades fine detail evaluation. Coronary artery calcifications. ABDOMEN: Liver: Normal enhancement. No focal suspicious hepatic lesions. Gallbladder and biliary: Cholecystectomy prominence of the bile ducts which can be seen in a normal post cholecystectomy setting. Spleen: Normal size and enhancement. Pancreas: Normal enhancement without peripancreatic inflammatory changes or ductal dilatation. Adrenal glands: Normal adrenal glands. Kidneys and ureters: Normal enhancement. No radio-opaque calculi. No hydroureteronephrosis. Subcentimeter hypodensities are too small to characterize however statistically represent cysts. GI tract: Changes of Leonardo-en-Y gastric bypass. Normal caliber small and large bowel loops. Normal appendix. Vascular structures: Patent abdominal aorta with atherosclerotic vascular calcifications. Severe atherosclerotic calcifications. Patent portosplenic confluence, portal veins, and hepatic veins. Lymph nodes: No lymphadenopathy in the abdomen or pelvis by size criteria. Peritoneum: No free air, free fluid, or focal drainable fluid collection. PELVIS: Genitourinary system: Normal urinary bladder. Hysterectomy. Ovaries not visualized. SKELETAL STRUCTURES AND SOFT TISSUES: Left of midline supraumbilical fat containing ventral hernia axial images 40-58. multilevel lumbar spondylosis most prominent at L3-L4. IMPRESSION: 1. No acute abdominal or pelvic process. No obstruction. No hydroureteronephrosis. Normal appendix. 2. Left of midline supraumbilical fat containing ventral hernia. Please note that all CT scans at this facility use dose modulation, iterative reconstruction, and/or weight-based dosing when appropriate to reduce radiation dose to as low as reasonably achievable. Dictated by Prosper Hernandez MD @ 07/06/2022 8:11:19 PM (Electronically Signed)
[2022-07-06] MEDS: PANTOPRAZOLE SODIUM 40 MG INJ IVP (18:03)
[2022-07-06] MEDS: 0.9 % SODIUM CHLORIDE 250 ml 250 ML IV (18:03)
[2022-07-06 18:30] LABS: Lactate* 3.1 mmol/L (0.5-1.9)
[2022-07-06 18:32] LABS: Basophils Absolute Auto 0.07 K/uL (0.00-0.30); Basophils Percent Auto 1.4 % (0.0-3.0); Eosinophils Absolute Auto 0.07 K/uL (0.00-0.50); Eosinophils Percent Auto 1.4 % (0.0-7.0); Hematocrit 24.7 % (33.0-51.0); Immature Granulocytes Abs Auto 0.01 K/uL (0.00-0.30); Lymphocytes Absolute Auto 1.49 K/uL (0.90-2.90); Lymphocytes Percent Auto 30.5 % (20-44); Mean Corpuscular HGB Conc 30 gm/dL (32-36); Mean Corpuscular Hemoglobin 26 pg (26-34); Mean Corpuscular Volume 87 fL (80-100); Monocytes Percent Auto 8.2 % (0.0-11.0); Neutrophils Absolute Auto 2.85 K/uL (1.7-7.0); Neutrophils Percent Auto 58.3 % (42.0-72.0); Platelet Count* 236 K/uL (140-440); RDW Coefficient of Variation % 16.3 % (11.5-15.5); Red Blood Count 2.84 m/uL (4.00-5.20); White Blood Count* 4.89 K/uL (4.50-11.00)
[2022-07-06 18:33] VITALS: BP 119/54; PULSE 96; RESP 13
[2022-07-06 18:37] LABS: Hemoglobin* 7.4 gm/dL (12.0-16.0); Slide Review Reflex No
--- NOTE | 2022-07-06 18:37 | ED.NURSE ---
MD Spears updated on critical hgb 7.4.
[2022-07-06 18:54] LABS: Albumin* 3.8 g/dL (3.3-5.0); Chloride* 100 mmol/L (96-114); Sodium* 135 mmol/L (135-149)
[2022-07-06 18:57] LABS: Aspartate Amino Transferase* 36 U/L (12-35); Carbon Dioxide* 24 mmol/L (20-32); Creatinine* 0.5 mg/dL (0.5-1.5); Est. Creatinine Clearance* 45.78; Estimated Glomerular Filt Rate 103 ml/min; Total Protein* 6.1 g/dL (6.0-8.3)
[2022-07-06 18:58] LABS: Alanine Aminotransferase* 19 U/L (4-35); Alkaline Phosphatase* 68 U/L (40-150); Blood Urea Nitrogen* 10 mg/dL (7-30); Calcium* 8.1 mg/dL (8.4-10.6); Glucose* 113 mg/dL (60-115); Lipase* 61 U/L (23-300)
[2022-07-06 18:59] LABS: Ethanol* 0.14 % (0.01-0.03)
[2022-07-06 19:00] LABS: C Reactive Protein* 0.8 mg/dL (0.5-1.0)
[2022-07-06 19:08] LABS: Erythrocyte SedimentationRate* 17 mm/hr (2-20)
[2022-07-06] MEDS: MORPHINE 2 MG/ML inj IVP ×2 (19:10→23:49)
[2022-07-06 19:25] LABS: SARS PCR* Negative SARS-CoV-2 (Negative)
[2022-07-06 20:22] VITALS: BP 145/76; PULSE 116; RESP 17; O2SAT 96
[2022-07-06 20:39] LABS: INR 1.62 (0.91-1.10); Prothrombin Time 19.7 Seconds
[2022-07-06 20:40] LABS: Partial Thromboplastin Time* 32 Seconds (23-33)
--- NOTE | 2022-07-06 20:48 | ED.NURSE ---
Patient went to bathroom. Blood from rectum noted while patient was wiping.
[2022-07-06 21:05] VITALS: BP 140/77; PULSE 102; RESP 18; TEMP 36.7; O2SAT 96; BMI 35.9
[2022-07-06] MEDS: TRANEXAMIC ACID 1,000 MG in 0.9 % SODIUM CHLORIDE 100 ml 100 ML 440 MG IVPB (21:19)
[2022-07-06] MEDS: 0.9 % SODIUM CHLORIDE 500 ML 500 ML IV (21:20)
[2022-07-06 21:30] LABS: Hemoglobin* 7.3 gm/dL (12.0-16.0)
--- NOTE | 2022-07-06 21:48 | P.IMHP_ITS ---
Hospitalist- H&P: HPI History of Present Illness Date Seen: 07/07/22 Chief complaint: Rectal Bleeding Narrative: ADMISSION HISTORY AND PHYSICAL - HOSPITALIST Chief Complaint: Abdominal pain, anxiety, GI bleed HPI: 66-year-old Sue presents via EMS from her [address] apartment. She was complaining of abdominal pain, periumbilical without radiation and bright red blood per rectum. She drinks about a point of vodka daily and stop taking her omeprazole about 1 week ago. She feels the pain gradually got worse over the last week. However it is lower in her abdomen not in the mid epigastric region. She stated about 24 hours prior to arrival in the ED she started having bright red blood per rectum. As the pain accelerated she became even more nervous and drink more vodka and then called EMS. She was intoxicated when they arrived. She was requesting pain medication throughout her transport. She states that she has had opioid dependence years ago and went to treatment and has been on Suboxone since. However about 6 years ago she started drinking and taking her Suboxone. She drinks alone in her apartment. She lives alone now. Previously she lived in [place] taking care of her parents. She has been for years. She lost 1 son to opioid overdose. She is estranged from her daughter. No vomiting or nausea. She states at a baseline she eats poorly. She readily admits that she is depressed and drinks because she can not sleep and has pain. Colonoscopy was last done in February of 2012. She is seen at the [facility] by Dr. Salcedo. I've updated the PFSH, medications and allergies in the [facility] tabs. INVESTIGATIONS: LABS/MICRO/ECG/IMAGING Her blood pressures have been stable and in fact increase and she has been here. Afebrile Pulse 80s to 116 Respiratory rate 13 18 Room air saturations 96% 91.9 kilos on room scale CBC reflects a baseline anemia that is now acutely worse. Her arrival hemoglobin was 7.4 essentially stable 2 hours later. Previously in March her hemoglobin had been 10.5 Normal platelets. Normal white blood cell count. INR 1.62 not on anticoagulation Potassium is low at 3.0 otherwise normal electrolytes. Lactate 3.1 Calcium is low at 8.1 AST mildly elevated 36 Normal CRP Alcohol level 0.14 CT abdomen pelvis from admission 1. No acute abdominal or pelvic process. No obstruction. No hydroureteronephrosis. Normal appendix. 2. Left of midline supraumbilical fat containing ventral hernia. REVIEW OF SYSTEMS: 12-point ROS completed with patient and negative unless otherwise stated in HPI or below. PHYSICAL EXAM: CODE STATUS: FULL CONSTITUTIONAL: dramatic; asking for pain meds; can move pretty easily in bed and jumps and takes her IV pole to bathroom. seems out of proportion to exam/history. VITAL SIGNS: see record. HEENT: Normocephalic, atraumatic. PERRL, EOMI, conjunctivae pink, no scleral icterus. Ears and nose externally normal. Pharynx normal. NECK: No JVD. No carotid bruit, no thyromegaly, no adenopathy. CHEST: Clear to auscultation bilaterally HEART: S1 and S2 normal. No harsh murmurs. Edema minimal. ABDOMEN: obese, fairly unremarkable. small periumbical hernia; no peritoneal signs. MUSCULOSKELETAL: No gross joint deformity or swelling. NEURO: Cranial nerves intact. Grossly intact. No asymmetric findings. SKIN: No rashes, petechiae, concerning changes PSYCHIATRIC: Euthymic. 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 Has a daughter in the area (estranged). Drinks daily; previous opioid dependence, now on suboxone. Smoking Status: Former smoker Do you use any of these nicotine containing products: Vaping Products Second hand tobacco smoke exposure: No How often do you have a drink containing alcohol: 4 or more times a week Alcohol type: hard liquor Alcohol type details: pint of Vodka daily How many standard drinks containing alcohol do you have on a typical day: 3 or 4 How often do you have six or more drinks on one occasion: Never AUDIT-C Alcohol total score: 5 Non-prescribed substance use: denies use Caffeine: Yes service: No Meds Home Medications and Allergies Home Medications Medication Instructions Recorded Confirmed Type Suboxone See Rx Instructions .Route .COMPLEX 03/23/22 07/06/22 History buspirone 10 mg tablet 20 mg PO TID 03/23/22 07/06/22 History cyclobenzaprine 5 mg tablet 5 mg PO Q8H 03/23/22 07/06/22 History duloxetine 60 mg capsule,delayed 60 mg PO DAILY 03/23/22 07/06/22 History release metoprolol tartrate 50 mg tablet 50 mg PO BID 03/23/22 07/07/22 History pravastatin 20 mg tablet 20 mg PO HS 03/23/22 07/07/22 History albuterol sulfate 90 mcg/actuation 2 puff inhalation Q4H PRN 07/06/22 07/07/22 History aerosol inhaler hydroxyzine HCl 25 mg tablet 25 mg PO Q6H PRN 07/06/22 07/06/22 History Allergies Allergy/AdvReac Type Severity Reaction Status Date / Time methylprednisolone Allergy Intermediate gi upset, Verified 03/23/22 02:36 tachycardia hydromorphone [From Dilaudid] Allergy Mild itching Verified 03/23/22 02:36 NSAIDS (Non-Steroidal Allergy Mild gastric Verified 03/23/22 02:36 Anti-Inflamma byass Exam Const: Vital Signs, click to edit/add: Vital Signs - 24 hr 07/06/22 17:08 07/06/22 17:33 07/06/22 18:33 Temperature 97.5 F L Pulse Rate [Left P ulse Oximeter] Pulse Rate [Right Pulse Oximeter] 92 96 Respiratory Rate 18 13 Blood Pressure [Ri ght Arm] Blood Pressure [Ri ght Upper Arm] 115/58 L 119/54 L Pulse Oximetry 95 95 Oxygen Delivery Me thod Room Air 07/06/22 20:22 07/06/22 21:05 Temperature 98.1 F Pulse Rate [Left P ulse Oximeter] 102 H Pulse Rate [Right Pulse Oximeter] 116 H Respiratory Rate 17 18 Blood Pressure [Ri ght Arm] 140/77 H Blood Pressure [Ri ght Upper Arm] 145/76 H Pulse Oximetry 96 96 Oxygen Delivery Me thod Room Air Room Air Hospitalist - H&P: Result Labs Labs: Short CBC 07/06/22 07/06/22 Range/Units 18:20 21:19 WBC 4.89 (4.50-11.00) K/uL Hgb 7.4 L* 7.3 L* (12.0-16.0) gm/dL Hct 24.7 L (33.0-51.0) % Plt Count 236 (140-440) K/uL BMP 07/06/22 18:20 Sodium 135 Potassium 3.0 L Chloride 100 Carbon Dioxide 24 BUN 10 Creatinine 0.5 Glucose 113 Calcium 8.1 L Liver Function 07/06/22 Range/Units 18:20 Total Bilirubin 1.0 (0.1-1.5) mg/dL AST 36 H (12-35) U/L ALT 19 (4-35) U/L Alkaline Phosphatase 68 (40-150) U/L Albumin 3.8 (3.3-5.0) g/dL Assessment and Plan Assessment and plan (1) Alcohol intoxication: Problem comment: CIWA ordered; ativan with protocol and prn use ordered. may need phenobarbital. fluids; thiamine, folic acid, MVM Status: Acute (2) GI bleed: Problem comment: s/p TXA; will transfuse 1 unit. IV PPI. q6 hgb. consider inpatient scope after stabilization. last scope was 2011; no records easily found. Status: Acute (3) Hypokalemia: Problem comment: replace and trend. Status: Acute (4) Anemia: Problem comment: chronic disease, now ABLA anemia. Status: Acute (5) H/O opioid abuse: Problem comment: on suboxone. will continue home dosing. 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
[2022-07-06] MEDS: LORazepam 2 MG/ML inj IVP (22:43)
[2022-07-06] MEDS: BUSPIRONE 10 MG TABLET 20 MG PO (22:49)
[2022-07-06] MEDS: POTASSIUM CHLORIDE 10 MEQ/100 ML PIGGYBACK 100 MEQ IVPB (22:50)
[2022-07-06 23:00] VITALS: BP 147/81; PULSE 120; RESP 20; TEMP 36.8; O2SAT 95; O2SAT 96
[2022-07-06 23:20] LABS: Cannabinoid Screen Urine Negative (Negative); Cocaine Screen Urine Negative (Negative); Methamphetamines Screen Urine Negative (Negative); Phencyclidine Screen Urine Negative (Negative)
[2022-07-06 23:21] LABS: Amphetamine Screen Urine Negative (Negative); Barbiturate Screen Urine Negative (Negative); Benzodiazepines Screen Urine Negative (Negative); Methadone Screen Urine Negative (Negative); Opiate Screen Urine POSITIVE (Negative); Oxycodone Screen Urine Negative (Negative)
--- NOTE | 2022-07-06 23:30 | PC.NURSE ---
Shift Note: Pt frowning and appears sad on admission, states she is scared. Verbalized urge to have BM but unable to do so, no rectal bleeding noted. UA collected for tox screen. VSS although HR slightly tachy. c/o 8/10 abdominal pain, Morphine given PRN. Assist x1 to BR, pt denies dizziness or lightheadedness with position change. Tolerating clear liquids well.
[2022-07-07] VITALS (25 sets, daily range): BP systolic 113–157; BP diastolic 60–87; PULSE 103–166; RESP 18–20; TEMP 36.4–37.1; O2SAT 88–98
[2022-07-07] MEDS: POTASSIUM CHLORIDE 10 MEQ/100 ML PIGGYBACK 100 MEQ IVPB (00:06)
[2022-07-07] MEDS: MORPHINE 2 MG/ML inj IVP (02:54)
[2022-07-07 05:05] LABS: HCO3 VBG 31 mmol/L (21-28); Ionized Calcium* 1.04 mmol/L (1.11-1.30); Lactate* 1.4 mmol/L (0.5-1.9); PCO2 VBG 48 mmHG (40-50); PO2 VBG 25.8 mmHG (25-47); pH VBG 7.417 (7.32-7.43)
[2022-07-07 05:08] LABS: Hemoglobin* 8.2 gm/dL (12.0-16.0)
[2022-07-07] MEDS: LORazepam 2 MG/ML inj IVP ×7 (05:09→22:55)
[2022-07-07 05:26] LABS: Albumin* 3.7 g/dL (3.3-5.0); Chloride* 100 mmol/L (96-114); INR 3.43 (0.91-1.10); Prothrombin Time 34.9 Seconds
[2022-07-07 05:27] LABS: Potassium* 4.2 mmol/L (3.6-5.1); Sodium* 136 mmol/L (135-149)
[2022-07-07 05:28] LABS: Iron* 63 ug/dL (37-170)
[2022-07-07 05:29] LABS: Bilirubin Total* 1.6 mg/dL (0.1-1.5); Creatinine* 0.5 mg/dL (0.5-1.5); Est. Creatinine Clearance* 45.78; Estimated Glomerular Filt Rate 103 ml/min
[2022-07-07 05:30] LABS: Alanine Aminotransferase* 16 U/L (4-35); Alkaline Phosphatase* 67 U/L (40-150); Aspartate Amino Transferase* 37 U/L (12-35); Blood Urea Nitrogen* 9 mg/dL (7-30); Calcium* 7.1 mg/dL (8.4-10.6); Carbon Dioxide* 30 mmol/L (20-32); Gamma Glutamyl Transpeptidase* 79 U/L (8-55); Glucose* 140 mg/dL (60-115); Lipase* 55 U/L (23-300); Magnesium* 1.7 mg/dL (1.5-2.6); Total Protein* 6.1 g/dL (6.0-8.3)
[2022-07-07 05:33] LABS: C Reactive Protein* 0.8 mg/dL (0.5-1.0)
--- NOTE | 2022-07-07 05:37 | PC.NURSE ---
Shift Note: Pt has received 1 pint of pack cell blood r/t low Hgb level secondary to blood in stool. No transfusion reaction observed. After transfusion, pt had about 300 ml of bloody stool. Pt is on 1.5L oxygen, appeared weak. Complained of pain of about 9 and was managed with PRN Morphine, and Lorazepam given for tremors. Bp and HR has been at the higher site and recorded as per chart. Pt denied feeling nauseated and dizziness.
[2022-07-07 05:38] LABS: NT Pro B Type NatriureticPept* 485 PG/mL (0-125); Percent Iron Saturation 13 % (20-50); Total Iron Binding Capacity 471 ug/dL (265-497)
[2022-07-07 05:45] LABS: Troponin I* < 0.01 ng/mL (0.01-0.04)
[2022-07-07 06:29] LABS: Ferritin* 12.3 ng/mL (11.1-264.0)
--- NOTE | 2022-07-07 07:30 | CRLHL7_ITS ---
For Patients: As a result of the Cures Act, medical imaging exams and procedure reports are released immediately into your electronic medical record. You may view this report before your referring provider. If you have questions, please contact your health care provider. INDICATION: Alcoholic liver disease. TECHNIQUE: Ultrasound abdomen limited. Sonographic images of the right upper quadrant were obtained using hardy-scale and color Doppler images. COMPARISON: CT abdomen and pelvis 07/06/2022. FINDINGS: Difficult limited exam due to body habitus and bowel gas. Liver: Dense echogenic liver. No suspicious masses. No intrahepatic biliary dilatation. Normal hepatopetal portal venous flow. Gallbladder: Surgically absent. Common bile duct: 9 mm. Pancreas: Unremarkable, limited visualization due to bowel gas. Right kidney: Normal in size. Right kidney measures 10.5 x 5.1 x 4.3 cm. Normal echotexture and cortex. No suspicious masses, stones, or hydronephrosis. Vasculature: Proximal abdominal aorta and IVC are unremarkable. Proximal aorta measures 2.3 cm in diameter. IMPRESSION: 1. Liver is dense and echogenic consistent with given history. No focal liver lesion identified. 2. Gallbladder surgically absent. Common bile duct is dilated measuring 9 mm most likely postsurgical change. Dictated by Jed Wilcox MD @ 07/07/2022 9:48:37 AM (Electronically Signed)
[2022-07-07 08:46] LABS: Bilirubin Direct* 0.1 mg/dL (0.0-0.5)
[2022-07-07] MEDS: DULOXETINE 30 MG CAPSULE DR 60 MG PO (09:02)
[2022-07-07] MEDS: PHENobarbitaL 260 MG in 0.9 % SODIUM CHLORIDE 100 ml 100 ML 208 MG IVPB ×3 (09:03→14:22)
[2022-07-07] MEDS: BUSPIRONE 10 MG TABLET 20 MG PO ×3 (09:03→20:58)
[2022-07-07] MEDS: METOPROLOL TARTRATE 50 MG TABLET PO ×2 (09:03→20:58)
[2022-07-07] MEDS: PANTOPRAZOLE SODIUM 40 MG INJ IVP (09:03)
[2022-07-07] MEDS: MULTIVITAMIN/MINERALS 1 TABLET 1 TAB PO (09:03)
[2022-07-07] MEDS: FOLIC ACID 1 MG TABLET PO (09:04)
--- NOTE | 2022-07-07 09:25 | REH.PT ---
PT/OT Evals on hold per MD due to pt going through withdrawals.
[2022-07-07] MEDS: THIAMINE 250 MG in 0.9 % SODIUM CHLORIDE 100 ml 100 ML 102.5 MG IVPB ×3 (10:13→20:58)
[2022-07-07 11:39] LABS: Hemoglobin* 7.9 gm/dL (12.0-16.0)
--- NOTE | 2022-07-07 13:50 | PM.IMPN1 ---
Progress Note: A&P Assessment and plan (1) Alcohol intoxication: Problem details: CIWA ordered; ativan with protocol and prn use ordered. may need phenobarbital. fluids; thiamine, folic acid, MVM Status: Acute (2) GI bleed: Problem details: s/p TXA; transfused 1 unit of packed red blood cells. q6 hgb. consider inpatient scope after stabilization. last scope was 2011; no records easily found. Status: Acute (3) Hypokalemia: Problem details: replace and trend. Status: Acute (4) Anemia: Problem details: chronic disease, now ABLA anemia. Status: Acute Assessment and Plan: Will transfuse with a 2nd unit of packed red blood cells. (5) H/O opioid abuse: Problem details: on suboxone. will continue home dosing. Status: Acute Assessment and Plan: I have asked our staff to try to obtain her Suboxone medication so she can continue to take a while here in the hospital. 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 MELD 3.0 score of 20. MELD Na score 23. MELD score of 22. (13) Delirium tremens: Status: Acute Assessment and Plan: Continue close monitoring and intervention for this at this time. Plan 1. Attempted discussion with patient about her condition. As she has evolved in with her alcohol withdrawal it is becoming increasingly difficult to carry out a substantive, meaningful conversation with her. Should her condition worsen will need to be in touch with her family members, her son. Time Spent With Patient Total time spent: 40 minutes Subjective Time Seen by Provider: 07:30 Date Seen: 07/07/22 Interval history: Hospital day 2. When I see her this morning she is awake, talkative. She notes that the blood loss per rectum has decreased substantially. Denies lightheadedness or orthostasis. States she is hungry, than known feeds her around here. Denies any nausea or vomiting. Still has some abdominal discomfort but much improved from previously. As the morning and a evolve, the patient asks for any kind of medicine seemingly not certain exactly what she is asking for. She makes requests such as, can you give me morphine or lorazepam? In conjunction with this, she develops more signs and symptoms of alcohol withdrawal including delirium. We employ the CIWA driven alcohol withdrawal protocol, plus phenobarbital. She is able to rest afterward. Exam Narrative: Exam Narrative: Appears comfortable this morning, no acute distress. Initially she is alert and oriented to self, place, time, and situation. Over the course of the day she is oriented to self only. Initially she has no diaphoresis or tremors but these evolving the course of the day. Lungs are clear to auscultation without wheezing, rhonchi, or rales. Heart tones with regular rhythm, normal S1-S2, no murmur, gallop, or rub. Abdomen with active bowel sounds, soft, nontender. Extremities without edema. Good capillary refill, less than 3 seconds, upper and lower extremities. Cranial nerves 3-12 grossly normal. Independent transfer, station, and gait. No focal motor neurologic deficits. Const: Vital Signs, click to edit/add: Vital Signs - 24 hr 07/06/22 17:08 07/06/22 17:33 07/06/22 18:33 Temperature 97.5 F L Pulse Rate Pulse Rate [Left P ulse Oximeter] Pulse Rate [Right Pulse Oximeter] 92 96 Pulse Rate [orthos tatic lying] Pulse Rate [orthos tatic sitting] Pulse Rate [orthos tatic standing] Respiratory Rate 18 13 Blood Pressure Blood Pressure [Ri ght Arm] Blood Pressure [Ri ght Upper Arm] 115/58 L 119/54 L Blood Pressure [or thostatic lying Le ft Arm] Blood Pressure [or thostatic sitting Left Arm] Blood Pressure [or thostatic standing Left Arm] Pulse Oximetry 95 95 Oxygen Delivery Me thod Room Air Oxygen Flow Rate 07/06/22 20:22 07/06/22 21:05 07/07/22 01:40 Temperature 98.1 F 98.2 F Pulse Rate 116 H Pulse Rate [Left P ulse Oximeter] 102 H Pulse Rate [Right Pulse Oximeter] 116 H Pulse Rate [orthos tatic lying] Pulse Rate [orthos tatic sitting] Pulse Rate [orthos tatic standing] Respiratory Rate 17 18 20 Blood Pressure 157/87 H Blood Pressure [Ri ght Arm] 140/77 H Blood Pressure [Ri ght Upper Arm] 145/76 H Blood Pressure [or thostatic lying Le ft Arm] Blood Pressure [or thostatic sitting Left Arm] Blood Pressure [or thostatic standing Left Arm] Pulse Oximetry 96 96 95 Oxygen Delivery Me thod Room Air Room Air Oxygen Flow Rate 07/07/22 01:57 07/07/22 01:59 07/06/22 23:00 Temperature 98.2 F 98.2 F Pulse Rate 117 H 120 H Pulse Rate [Left P ulse Oximeter] 125 H Pulse Rate [Right Pulse Oximeter] Pulse Rate [orthos tatic lying] Pulse Rate [orthos tatic sitting] Pulse Rate [orthos tatic standing] Respiratory Rate 20 18 Blood Pressure 145/74 H Blood Pressure [Ri ght Arm] 157/87 H Blood Pressure [Ri ght Upper Arm] Blood Pressure [or thostatic lying Le ft Arm] Blood Pressure [or thostatic sitting Left Arm] Blood Pressure [or thostatic standing Left Arm] Pulse Oximetry 92 95 Oxygen Delivery Me thod Nasal Cannula Oxygen Flow Rate 07/06/22 23:00 07/06/22 23:00 07/06/22 23:00 Temperature Pulse Rate Pulse Rate [Left P ulse Oximeter] 120 H Pulse Rate [Right Pulse Oximeter] Pulse Rate [orthos tatic lying] Pulse Rate [orthos tatic sitting] Pulse Rate [orthos tatic standing] Respiratory Rate 20 Blood Pressure Blood Pressure [Ri ght Arm] Blood Pressure [Ri ght Upper Arm] Blood Pressure [or thostatic lying Le ft Arm] Blood Pressure [or thostatic sitting Left Arm] Blood Pressure [or thostatic standing Left Arm] Pulse Oximetry 96 95 Oxygen Delivery Me thod Nasal Cannula Oxygen Flow Rate 1.5 07/06/22 23:00 07/07/22 03:00 07/07/22 02:44 Temperature 98.2 F 98.2 F 97.6 F Pulse Rate 116 H Pulse Rate [Left P ulse Oximeter] 120 H 117 H Pulse Rate [Right Pulse Oximeter] Pulse Rate [orthos tatic lying] Pulse Rate [orthos tatic sitting] Pulse Rate [orthos tatic standing] Respiratory Rate 20 18 20 Blood Pressure 113/60 Blood Pressure [Ri ght Arm] 147/81 H 113/60 Blood Pressure [Ri ght Upper Arm] Blood Pressure [or thostatic lying Le ft Arm] Blood Pressure [or thostatic sitting Left Arm] Blood Pressure [or thostatic standing Left Arm] Pulse Oximetry 95 98 97 Oxygen Delivery Me thod Nasal Cannula Nasal Cannula Oxygen Flow Rate 1.5 07/07/22 03:44 07/07/22 05:06 07/07/22 06:20 Temperature 98.5 F 98.5 F 98.5 F Pulse Rate 114 H 122 H Pulse Rate [Left P ulse Oximeter] 122 H Pulse Rate [Right Pulse Oximeter] Pulse Rate [orthos tatic lying] Pulse Rate [orthos tatic sitting] Pulse Rate [orthos tatic standing] Respiratory Rate 18 18 18 Blood Pressure 140/67 H 140/68 H Blood Pressure [Ri ght Arm] 140/68 H Blood Pressure [Ri ght Upper Arm] Blood Pressure [or thostatic lying Le ft Arm] Blood Pressure [or thostatic sitting Left Arm] Blood Pressure [or thostatic standing Left Arm] Pulse Oximetry 98 98 98 Oxygen Delivery Me thod Nasal Cannula Oxygen Flow Rate 1.5 07/07/22 06:58 07/07/22 07:32 07/07/22 07:34 Temperature 98 F 98 F Pulse Rate Pulse Rate [Left P ulse Oximeter] 133 H 133 H Pulse Rate [Right Pulse Oximeter] Pulse Rate [orthos tatic lying] 122 H Pulse Rate [orthos tatic sitting] 116 H Pulse Rate [orthos tatic standing] 166 H Respiratory Rate 20 20 Blood Pressure Blood Pressure [Ri ght Arm] 140/87 H 140/87 H Blood Pressure [Ri ght Upper Arm] Blood Pressure [or thostatic lying Le ft Arm] 157/73 H Blood Pressure [or thostatic sitting Left Arm] 138/82 Blood Pressure [or thostatic standing Left Arm] 136/82 Pulse Oximetry 93 93 Oxygen Delivery Me thod Room Air Room Air Oxygen Flow Rate 1.5 07/07/22 07:30 Temperature Pulse Rate 129 H Pulse Rate [Left P ulse Oximeter] Pulse Rate [Right Pulse Oximeter] Pulse Rate [orthos tatic lying] Pulse Rate [orthos tatic sitting] Pulse Rate [orthos tatic standing] Respiratory Rate Blood Pressure Blood Pressure [Ri ght Arm] Blood Pressure [Ri ght Upper Arm] Blood Pressure [or thostatic lying Le ft Arm] Blood Pressure [or thostatic sitting Left Arm] Blood Pressure [or thostatic standing Left Arm] Pulse Oximetry Oxygen Delivery Me thod Oxygen Flow Rate Documenting provider has reviewed patient's vital signs: yes Labs Labs: Laboratory Results - last 24 hr 07/06/22 07/06/22 07/06/22 17:45 18:20 18:20 WBC 4.89 RBC 2.84 L Hgb 7.4 L* Hct 24.7 L MCV 87 MCH 26 MCHC 30 L RDW Coeff of Manny 16.3 H Plt Count 236 Neut % (Auto) 58.3 Lymph % (Auto) 30.5 [place] % (Auto) 8.2 Eos % (Auto) 1.4 Baso % (Auto) 1.4 Neut # (Auto) 2.85 Lymph # (Auto) 1.49 [place] # (Auto) 0.40 Eos # (Auto) 0.07 Baso # (Auto) 0.07 Abs Immat Gran (auto) 0.01 ESR INR APTT VBG pH VBG pCO2 VBG pO2 VBG HCO3 Sodium Potassium Chloride Carbon Dioxide BUN Creatinine Estimated Creat Clear Estimated GFR Glucose Lactate Calcium Ionized Calcium Michelle Magnesium Iron TIBC % Saturation Ferritin Total Bilirubin Direct Bilirubin GGT AST ALT Alkaline Phosphatase Troponin I C-Reactive Protein NT-Pro-B Natriuret Pep Total Protein Albumin Lipase TSH Urine Opiates Screen Ur Oxycodone Screen Urine Methadone Screen Ur Propoxyphene Screen Ur Barbiturates Screen Ur Phencyclidine Scrn Ur Amphetamines Screen U Methamphetamines Scrn U Benzodiazepines Scrn Urine Cocaine Screen U Marijuana (THC) Screen Ur Drug Screen Comment Ethyl Alcohol SARS-CoV-2 (PCR) Negative SARS-CoV-2 Blood Type A Positive Antibody Screen NEGATIVE Crossmatch ([facility]) See Detail 07/06/22 07/06/22 07/06/22 18:20 18:20 18:20 WBC RBC Hgb Hct MCV MCH MCHC RDW Coeff of Manny Plt Count Neut % (Auto) Lymph % (Auto) [place] % (Auto) Eos % (Auto) Baso % (Auto) Neut # (Auto) Lymph # (Auto) [place] # (Auto) Eos # (Auto) Baso # (Auto) Abs Immat Gran (auto) ESR 17 INR APTT VBG pH VBG pCO2 VBG pO2 VBG HCO3 Sodium 135 Potassium 3.0 L Chloride 100 Carbon Dioxide 24 BUN 10 Creatinine 0.5 Estimated Creat Clear 45.78 Estimated GFR 103 Glucose 113 Lactate 3.1 H Calcium 8.1 L Ionized Calcium Michelle Magnesium Iron TIBC % Saturation Ferritin Total Bilirubin 1.0 Direct Bilirubin GGT AST 36 H ALT 19 Alkaline Phosphatase 68 Troponin I C-Reactive Protein 0.8 NT-Pro-B Natriuret Pep Total Protein 6.1 Albumin 3.8 Lipase 61 TSH Urine Opiates Screen Ur Oxycodone Screen Urine Methadone Screen Ur Propoxyphene Screen Ur Barbiturates Screen Ur Phencyclidine Scrn Ur Amphetamines Screen U Methamphetamines Scrn U Benzodiazepines Scrn Urine Cocaine Screen U Marijuana (THC) Screen Ur Drug Screen Comment Ethyl Alcohol 0.14 H SARS-CoV-2 (PCR) Blood Type Antibody Screen Crossmatch ([facility]) 07/06/22 07/06/22 07/06/22 18:20 21:19 22:59 WBC RBC Hgb 7.3 L* Hct MCV MCH MCHC RDW Coeff of Manny Plt Count Neut % (Auto) Lymph % (Auto) [place] % (Auto) Eos % (Auto) Baso % (Auto) Neut # (Auto) Lymph # (Auto) [place] # (Auto) Eos # (Auto) Baso # (Auto) Abs Immat Gran (auto) ESR INR 1.62 H APTT 32 VBG pH VBG pCO2 VBG pO2 VBG HCO3 Sodium Potassium Chloride Carbon Dioxide BUN Creatinine Estimated Creat Clear Estimated GFR Glucose Lactate Calcium Ionized Calcium Michelle Magnesium Iron TIBC % Saturation Ferritin Total Bilirubin Direct Bilirubin GGT AST ALT Alkaline Phosphatase Troponin I C-Reactive Protein NT-Pro-B Natriuret Pep Total Protein Albumin Lipase TSH Urine Opiates Screen POSITIVE A* Ur Oxycodone Screen Negative Urine Methadone Screen Negative Ur Propoxyphene Screen Negative Ur Barbiturates Screen Negative Ur Phencyclidine Scrn Negative Ur Amphetamines Screen Negative U Methamphetamines Scrn Negative U Benzodiazepines Scrn Negative Urine Cocaine Screen Negative U Marijuana (THC) Screen Negative Ur Drug Screen Comment See Note Ethyl Alcohol SARS-CoV-2 (PCR) Blood Type Antibody Screen Crossmatch ([facility]) 07/07/22 07/07/22 07/07/22 05:00 05:00 05:00 WBC RBC Hgb 8.2 L Hct MCV MCH MCHC RDW Coeff of Manny Plt Count Neut % (Auto) Lymph % (Auto) [place] % (Auto) Eos % (Auto) Baso % (Auto) Neut # (Auto) Lymph # (Auto) [place] # (Auto) Eos # (Auto) Baso # (Auto) Abs Immat Gran (auto) ESR INR 3.43 H APTT VBG pH VBG pCO2 VBG pO2 VBG HCO3 Sodium 136 Potassium 4.2 Chloride 100 Carbon Dioxide 30 BUN 9 Creatinine 0.5 Estimated Creat Clear 45.78 Estimated GFR 103 Glucose 140 H Lactate Calcium 7.1 L Ionized Calcium Michelle Magnesium 1.7 Iron TIBC % Saturation Ferritin Total Bilirubin 1.6 H Direct Bilirubin 0.1 GGT 79 H AST 37 H ALT 16 Alkaline Phosphatase 67 Troponin I < 0.01 L C-Reactive Protein 0.8 NT-Pro-B Natriuret Pep 485 H Total Protein 6.1 Albumin 3.7 Lipase 55 TSH Urine Opiates Screen Ur Oxycodone Screen Urine Methadone Screen Ur Propoxyphene Screen Ur Barbiturates Screen Ur Phencyclidine Scrn Ur Amphetamines Screen U Methamphetamines Scrn U Benzodiazepines Scrn Urine Cocaine Screen U Marijuana (THC) Screen Ur Drug Screen Comment Ethyl Alcohol SARS-CoV-2 (PCR) Blood Type Antibody Screen Crossmatch ([facility]) 07/07/22 07/07/22 07/07/22 05:00 05:00 05:00 WBC RBC Hgb Hct MCV MCH MCHC RDW Coeff of Manny Plt Count Neut % (Auto) Lymph % (Auto) [place] % (Auto) Eos % (Auto) Baso % (Auto) Neut # (Auto) Lymph # (Auto) [place] # (Auto) Eos # (Auto) Baso # (Auto) Abs Immat Gran (auto) ESR INR APTT VBG pH 7.417 VBG pCO2 48 VBG pO2 25.8 VBG HCO3 31 H Sodium Potassium Chloride Carbon Dioxide BUN Creatinine Estimated Creat Clear Estimated GFR Glucose Lactate 1.4 Calcium Ionized Calcium Michelle 1.04 L Magnesium Iron 63 TIBC 471 % Saturation 13 L Ferritin 12.3 Total Bilirubin Direct Bilirubin GGT AST ALT Alkaline Phosphatase Troponin I C-Reactive Protein NT-Pro-B Natriuret Pep Total Protein Albumin Lipase TSH 1.310 Urine Opiates Screen Ur Oxycodone Screen Urine Methadone Screen Ur Propoxyphene Screen Ur Barbiturates Screen Ur Phencyclidine Scrn Ur Amphetamines Screen U Methamphetamines Scrn U Benzodiazepines Scrn Urine Cocaine Screen U Marijuana (THC) Screen Ur Drug Screen Comment Ethyl Alcohol SARS-CoV-2 (PCR) Blood Type Antibody Screen Crossmatch (G) 07/07/22 11:15 WBC RBC Hgb 7.9 L* Hct MCV MCH MCHC RDW Coeff of Manny Plt Count Neut % (Auto) Lymph % (Auto) [place] % (Auto) Eos % (Auto) Baso % (Auto) Neut # (Auto) Lymph # (Auto) [place] # (Auto) Eos # (Auto) Baso # (Auto) Abs Immat Gran (auto) ESR INR APTT VBG pH VBG pCO2 VBG pO2 VBG HCO3 Sodium Potassium Chloride Carbon Dioxide BUN Creatinine Estimated Creat Clear Estimated GFR Glucose Lactate Calcium Ionized Calcium Michelle Magnesium Iron TIBC % Saturation Ferritin Total Bilirubin Direct Bilirubin GGT AST ALT Alkaline Phosphatase Troponin I C-Reactive Protein NT-Pro-B Natriuret Pep Total Protein Albumin Lipase TSH Urine Opiates Screen Ur Oxycodone Screen Urine Methadone Screen Ur Propoxyphene Screen Ur Barbiturates Screen Ur Phencyclidine Scrn Ur Amphetamines Screen U Methamphetamines Scrn U Benzodiazepines Scrn Urine Cocaine Screen U Marijuana (THC) Screen Ur Drug Screen Comment Ethyl Alcohol SARS-CoV-2 (PCR) Blood Type Antibody Screen Crossmatch ([facility]G)
[2022-07-07] MEDS: 0.9 % SODIUM CHLORIDE 500 ML 500 ML IV (14:04)
--- NOTE | 2022-07-07 15:27 | P.IMPN_ITS ---
Subjective Time Seen by Provider: 07:30 Date Seen: 07/07/22 Interval history: This entry is made inadvertently. Please see prior entry. Exam Const: Vital Signs, click to edit/add: Vital Signs - 24 hr 07/06/22 17:08 07/06/22 17:33 07/06/22 18:33 Temperature 97.5 F L Pulse Rate Pulse Rate [Left P ulse Oximeter] Pulse Rate [Right Pulse Oximeter] 92 96 Pulse Rate [orthos tatic lying] Pulse Rate [orthos tatic sitting] Pulse Rate [orthos tatic standing] Respiratory Rate 18 13 Blood Pressure Blood Pressure [Ri ght Arm] Blood Pressure [Ri ght Upper Arm] 115/58 L 119/54 L Blood Pressure [or thostatic lying Le ft Arm] Blood Pressure [or thostatic sitting Left Arm] Blood Pressure [or thostatic standing Left Arm] Pulse Oximetry 95 95 Oxygen Delivery Me thod Room Air Oxygen Flow Rate 07/06/22 20:22 07/06/22 21:05 07/07/22 01:40 Temperature 98.1 F 98.2 F Pulse Rate 116 H Pulse Rate [Left P ulse Oximeter] 102 H Pulse Rate [Right Pulse Oximeter] 116 H Pulse Rate [orthos tatic lying] Pulse Rate [orthos tatic sitting] Pulse Rate [orthos tatic standing] Respiratory Rate 17 18 20 Blood Pressure 157/87 H Blood Pressure [Ri ght Arm] 140/77 H Blood Pressure [Ri ght Upper Arm] 145/76 H Blood Pressure [or thostatic lying Le ft Arm] Blood Pressure [or thostatic sitting Left Arm] Blood Pressure [or thostatic standing Left Arm] Pulse Oximetry 96 96 95 Oxygen Delivery Me thod Room Air Room Air Oxygen Flow Rate 07/07/22 01:57 07/07/22 01:59 07/06/22 23:00 Temperature 98.2 F 98.2 F Pulse Rate 117 H 120 H Pulse Rate [Left P ulse Oximeter] 125 H Pulse Rate [Right Pulse Oximeter] Pulse Rate [orthos tatic lying] Pulse Rate [orthos tatic sitting] Pulse Rate [orthos tatic standing] Respiratory Rate 20 18 Blood Pressure 145/74 H Blood Pressure [Ri ght Arm] 157/87 H Blood Pressure [Ri ght Upper Arm] Blood Pressure [or thostatic lying Le ft Arm] Blood Pressure [or thostatic sitting Left Arm] Blood Pressure [or thostatic standing Left Arm] Pulse Oximetry 92 95 Oxygen Delivery Me thod Nasal Cannula Oxygen Flow Rate 07/06/22 23:00 07/06/22 23:00 07/06/22 23:00 Temperature Pulse Rate Pulse Rate [Left P ulse Oximeter] 120 H Pulse Rate [Right Pulse Oximeter] Pulse Rate [orthos tatic lying] Pulse Rate [orthos tatic sitting] Pulse Rate [orthos tatic standing] Respiratory Rate 20 Blood Pressure Blood Pressure [Ri ght Arm] Blood Pressure [Ri ght Upper Arm] Blood Pressure [or thostatic lying Le ft Arm] Blood Pressure [or thostatic sitting Left Arm] Blood Pressure [or thostatic standing Left Arm] Pulse Oximetry 96 95 Oxygen Delivery Me thod Nasal Cannula Oxygen Flow Rate 1.5 07/06/22 23:00 07/07/22 03:00 07/07/22 02:44 Temperature 98.2 F 98.2 F 97.6 F Pulse Rate 116 H Pulse Rate [Left P ulse Oximeter] 120 H 117 H Pulse Rate [Right Pulse Oximeter] Pulse Rate [orthos tatic lying] Pulse Rate [orthos tatic sitting] Pulse Rate [orthos tatic standing] Respiratory Rate 20 18 20 Blood Pressure 113/60 Blood Pressure [Ri ght Arm] 147/81 H 113/60 Blood Pressure [Ri ght Upper Arm] Blood Pressure [or thostatic lying Le ft Arm] Blood Pressure [or thostatic sitting Left Arm] Blood Pressure [or thostatic standing Left Arm] Pulse Oximetry 95 98 97 Oxygen Delivery Me thod Nasal Cannula Nasal Cannula Oxygen Flow Rate 1.5 07/07/22 03:44 07/07/22 05:06 07/07/22 06:20 Temperature 98.5 F 98.5 F 98.5 F Pulse Rate 114 H 122 H Pulse Rate [Left P ulse Oximeter] 122 H Pulse Rate [Right Pulse Oximeter] Pulse Rate [orthos tatic lying] Pulse Rate [orthos tatic sitting] Pulse Rate [orthos tatic standing] Respiratory Rate 18 18 18 Blood Pressure 140/67 H 140/68 H Blood Pressure [Ri ght Arm] 140/68 H Blood Pressure [Ri ght Upper Arm] Blood Pressure [or thostatic lying Le ft Arm] Blood Pressure [or thostatic sitting Left Arm] Blood Pressure [or thostatic standing Left Arm] Pulse Oximetry 98 98 98 Oxygen Delivery Me thod Nasal Cannula Oxygen Flow Rate 1.5 07/07/22 06:58 07/07/22 07:32 07/07/22 07:34 Temperature 98 F 98 F Pulse Rate Pulse Rate [Left P ulse Oximeter] 133 H 133 H Pulse Rate [Right Pulse Oximeter] Pulse Rate [orthos tatic lying] 122 H Pulse Rate [orthos tatic sitting] 116 H Pulse Rate [orthos tatic standing] 166 H Respiratory Rate 20 20 Blood Pressure Blood Pressure [Ri ght Arm] 140/87 H 140/87 H Blood Pressure [Ri ght Upper Arm] Blood Pressure [or thostatic lying Le ft Arm] 157/73 H Blood Pressure [or thostatic sitting Left Arm] 138/82 Blood Pressure [or thostatic standing Left Arm] 136/82 Pulse Oximetry 93 93 Oxygen Delivery Me thod Room Air Room Air Oxygen Flow Rate 1.5 07/07/22 07:30 07/07/22 07:15 07/07/22 07:15 Temperature Pulse Rate 129 H Pulse Rate [Left P ulse Oximeter] Pulse Rate [Right Pulse Oximeter] Pulse Rate [orthos tatic lying] Pulse Rate [orthos tatic sitting] Pulse Rate [orthos tatic standing] Respiratory Rate 20 Blood Pressure Blood Pressure [Ri ght Arm] Blood Pressure [Ri ght Upper Arm] Blood Pressure [or thostatic lying Le ft Arm] Blood Pressure [or thostatic sitting Left Arm] Blood Pressure [or thostatic standing Left Arm] Pulse Oximetry 93 93 Oxygen Delivery Me thod Room Air Oxygen Flow Rate 07/07/22 07:15 Temperature Pulse Rate Pulse Rate [Left P ulse Oximeter] 133 H Pulse Rate [Right Pulse Oximeter] Pulse Rate [orthos tatic lying] Pulse Rate [orthos tatic sitting] Pulse Rate [orthos tatic standing] Respiratory Rate 20 Blood Pressure Blood Pressure [Ri ght Arm] Blood Pressure [Ri ght Upper Arm] Blood Pressure [or thostatic lying Le ft Arm] Blood Pressure [or thostatic sitting Left Arm] Blood Pressure [or thostatic standing Left Arm] Pulse Oximetry Oxygen Delivery Me thod Oxygen Flow Rate Labs Labs: Laboratory Results - last 24 hr 07/06/22 07/06/22 07/06/22 17:45 18:20 18:20 WBC 4.89 RBC 2.84 L Hgb 7.4 L* Hct 24.7 L MCV 87 MCH 26 MCHC 30 L RDW Coeff of Manny 16.3 H Plt Count 236 Neut % (Auto) 58.3 Lymph % (Auto) 30.5 Zavala % (Auto) 8.2 Eos % (Auto) 1.4 Baso % (Auto) 1.4 Neut # (Auto) 2.85 Lymph # (Auto) 1.49 Zavala # (Auto) 0.40 Eos # (Auto) 0.07 Baso # (Auto) 0.07 Abs Immat Gran (auto) 0.01 ESR INR APTT VBG pH VBG pCO2 VBG pO2 VBG HCO3 Sodium Potassium Chloride Carbon Dioxide BUN Creatinine Estimated Creat Clear Estimated GFR Glucose Lactate Calcium Ionized Calcium Michelle Magnesium Iron TIBC % Saturation Ferritin Total Bilirubin Direct Bilirubin GGT AST ALT Alkaline Phosphatase Troponin I C-Reactive Protein NT-Pro-B Natriuret Pep Total Protein Albumin Lipase TSH Urine Opiates Screen Ur Oxycodone Screen Urine Methadone Screen Ur Propoxyphene Screen Ur Barbiturates Screen Ur Phencyclidine Scrn Ur Amphetamines Screen U Methamphetamines Scrn U Benzodiazepines Scrn Urine Cocaine Screen U Marijuana (THC) Screen Ur Drug Screen Comment Ethyl Alcohol SARS-CoV-2 (PCR) Negative SARS-CoV-2 Blood Type A Positive Antibody Screen NEGATIVE Crossmatch ([facility]) See Detail 07/06/22 07/06/22 07/06/22 18:20 18:20 18:20 WBC RBC Hgb Hct MCV MCH MCHC RDW Coeff of Manny Plt Count Neut % (Auto) Lymph % (Auto) Zavala % (Auto) Eos % (Auto) Baso % (Auto) Neut # (Auto) Lymph # (Auto) Zavala # (Auto) Eos # (Auto) Baso # (Auto) Abs Immat Gran (auto) ESR 17 INR APTT VBG pH VBG pCO2 VBG pO2 VBG HCO3 Sodium 135 Potassium 3.0 L Chloride 100 Carbon Dioxide 24 BUN 10 Creatinine 0.5 Estimated Creat Clear 45.78 Estimated GFR 103 Glucose 113 Lactate 3.1 H Calcium 8.1 L Ionized Calcium Michelle Magnesium Iron TIBC % Saturation Ferritin Total Bilirubin 1.0 Direct Bilirubin GGT AST 36 H ALT 19 Alkaline Phosphatase 68 Troponin I C-Reactive Protein 0.8 NT-Pro-B Natriuret Pep Total Protein 6.1 Albumin 3.8 Lipase 61 TSH Urine Opiates Screen Ur Oxycodone Screen Urine Methadone Screen Ur Propoxyphene Screen Ur Barbiturates Screen Ur Phencyclidine Scrn Ur Amphetamines Screen U Methamphetamines Scrn U Benzodiazepines Scrn Urine Cocaine Screen U Marijuana (THC) Screen Ur Drug Screen Comment Ethyl Alcohol 0.14 H SARS-CoV-2 (PCR) Blood Type Antibody Screen Crossmatch ([facility]) 07/06/22 07/06/22 07/06/22 18:20 21:19 22:59 WBC RBC Hgb 7.3 L* Hct MCV MCH MCHC RDW Coeff of Manny Plt Count Neut % (Auto) Lymph % (Auto) Zavala % (Auto) Eos % (Auto) Baso % (Auto) Neut # (Auto) Lymph # (Auto) Zavala # (Auto) Eos # (Auto) Baso # (Auto) Abs Immat Gran (auto) ESR INR 1.62 H APTT 32 VBG pH VBG pCO2 VBG pO2 VBG HCO3 Sodium Potassium Chloride Carbon Dioxide BUN Creatinine Estimated Creat Clear Estimated GFR Glucose Lactate Calcium Ionized Calcium Michelle Magnesium Iron TIBC % Saturation Ferritin Total Bilirubin Direct Bilirubin GGT AST ALT Alkaline Phosphatase Troponin I C-Reactive Protein NT-Pro-B Natriuret Pep Total Protein Albumin Lipase TSH Urine Opiates Screen POSITIVE A* Ur Oxycodone Screen Negative Urine Methadone Screen Negative Ur Propoxyphene Screen Negative Ur Barbiturates Screen Negative Ur Phencyclidine Scrn Negative Ur Amphetamines Screen Negative U Methamphetamines Scrn Negative U Benzodiazepines Scrn Negative Urine Cocaine Screen Negative U Marijuana (THC) Screen Negative Ur Drug Screen Comment See Note Ethyl Alcohol SARS-CoV-2 (PCR) Blood Type Antibody Screen Crossmatch ([facility]) 07/07/22 07/07/22 07/07/22 05:00 05:00 05:00 WBC RBC Hgb 8.2 L Hct MCV MCH MCHC RDW Coeff of Manny Plt Count Neut % (Auto) Lymph % (Auto) Zavala % (Auto) Eos % (Auto) Baso % (Auto) Neut # (Auto) Lymph # (Auto) Zavala # (Auto) Eos # (Auto) Baso # (Auto) Abs Immat Gran (auto) ESR INR 3.43 H APTT VBG pH VBG pCO2 VBG pO2 VBG HCO3 Sodium 136 Potassium 4.2 Chloride 100 Carbon Dioxide 30 BUN 9 Creatinine 0.5 Estimated Creat Clear 45.78 Estimated GFR 103 Glucose 140 H Lactate Calcium 7.1 L Ionized Calcium Michelle Magnesium 1.7 Iron TIBC % Saturation Ferritin Total Bilirubin 1.6 H Direct Bilirubin 0.1 GGT 79 H AST 37 H ALT 16 Alkaline Phosphatase 67 Troponin I < 0.01 L C-Reactive Protein 0.8 NT-Pro-B Natriuret Pep 485 H Total Protein 6.1 Albumin 3.7 Lipase 55 TSH Urine Opiates Screen Ur Oxycodone Screen Urine Methadone Screen Ur Propoxyphene Screen Ur Barbiturates Screen Ur Phencyclidine Scrn Ur Amphetamines Screen U Methamphetamines Scrn U Benzodiazepines Scrn Urine Cocaine Screen U Marijuana (THC) Screen Ur Drug Screen Comment Ethyl Alcohol SARS-CoV-2 (PCR) Blood Type Antibody Screen Crossmatch ([facility]) 07/07/22 07/07/22 07/07/22 05:00 05:00 05:00 WBC RBC Hgb Hct MCV MCH MCHC RDW Coeff of Manny Plt Count Neut % (Auto) Lymph % (Auto) Zavala % (Auto) Eos % (Auto) Baso % (Auto) Neut # (Auto) Lymph # (Auto) Zavala # (Auto) Eos # (Auto) Baso # (Auto) Abs Immat Gran (auto) ESR INR APTT VBG pH 7.417 VBG pCO2 48 VBG pO2 25.8 VBG HCO3 31 H Sodium Potassium Chloride Carbon Dioxide BUN Creatinine Estimated Creat Clear Estimated GFR Glucose Lactate 1.4 Calcium Ionized Calcium Michelle 1.04 L Magnesium Iron 63 TIBC 471 % Saturation 13 L Ferritin 12.3 Total Bilirubin Direct Bilirubin GGT AST ALT Alkaline Phosphatase Troponin I C-Reactive Protein NT-Pro-B Natriuret Pep Total Protein Albumin Lipase TSH 1.310 Urine Opiates Screen Ur Oxycodone Screen Urine Methadone Screen Ur Propoxyphene Screen Ur Barbiturates Screen Ur Phencyclidine Scrn Ur Amphetamines Screen U Methamphetamines Scrn U Benzodiazepines Scrn Urine Cocaine Screen U Marijuana (THC) Screen Ur Drug Screen Comment Ethyl Alcohol SARS-CoV-2 (PCR) Blood Type Antibody Screen Crossmatch ([facility]) 07/07/22 11:15 WBC RBC Hgb 7.9 L* Hct MCV MCH MCHC RDW Coeff of Manny Plt Count Neut % (Auto) Lymph % (Auto) Zavala % (Auto) Eos % (Auto) Baso % (Auto) Neut # (Auto) Lymph # (Auto) Zavala # (Auto) Eos # (Auto) Baso # (Auto) Abs Immat Gran (auto) ESR INR APTT VBG pH VBG pCO2 VBG pO2 VBG HCO3 Sodium Potassium Chloride Carbon Dioxide BUN Creatinine Estimated Creat Clear Estimated GFR Glucose Lactate Calcium Ionized Calcium Michelle Magnesium Iron TIBC % Saturation Ferritin Total Bilirubin Direct Bilirubin GGT AST ALT Alkaline Phosphatase Troponin I C-Reactive Protein NT-Pro-B Natriuret Pep Total Protein Albumin Lipase TSH Urine Opiates Screen Ur Oxycodone Screen Urine Methadone Screen Ur Propoxyphene Screen Ur Barbiturates Screen Ur Phencyclidine Scrn Ur Amphetamines Screen U Methamphetamines Scrn U Benzodiazepines Scrn Urine Cocaine Screen U Marijuana (THC) Screen Ur Drug Screen Comment Ethyl Alcohol SARS-CoV-2 (PCR) Blood Type Antibody Screen Crossmatch ([facility])
--- NOTE | 2022-07-07 16:27 | PC.NURSE ---
PATIENT AGITATED AT BEGINNING OF SHIFT AND STATING SHE WAS LEAVING AND WANTED MEDICATION FOR PAIN OR WHATEVER YOU CAN GIVE ME. CIWA AT THAT TIME SCORED 14. MD AWARE AND ATIVAN IV PER CIWA PROTOCOL ADMINISTERED AND TWO DOSES OF PHENOBARBITAL IV ADMINISTERED PER EMAR. PATIENT WAS ABLE TO REST. TOLERATED CLEAR LIQUID DIET WITH NO C/O N/V. EARLY AFTERNOON, PATIENT BECAME MORE RESTLESS AND AGITATED AND NO LONGER ORIENTED TO PLACE OR TIME. DR. CHAMBERS AGAIN UPDATED AND ANOTHER ATIVAN 2MG IV DOSE ADMINISTERED FOR CIWA OF 16 AND PHENOBARBITAL ORDERED AND ADMINISTERED. UP WITH A2, WALKER AND GAIT BELT TO [facility] [place]. NO FURTHER BLOODY STOOLS TODAY.
[2022-07-07] MEDS: METOPROLOL TARTRATE 1 MG/ML inj 5 MG IVP (17:48)
[2022-07-07 21:39] LABS: Hemoglobin* 7.9 gm/dL (12.0-16.0)
[2022-07-07] MEDS: LACTATED RINGERS 1000 ML 1,000 ML 100 ML IV (23:31)
--- NOTE | 2022-07-07 23:34 | PC.NURSE ---
Patient is disoriented to place/time. Speech is slurred/garbled. Pt is sedated due to receiving medications for alcohol withdrawal (see eMAR). Attempting to get up out of bed frequently throughout the shift. Ativan given x4 doses. Patient does not show any signs of pain or discomfort. Metoprolol IV Push given for an increased HR. HR is down from 110's-120's however remains in the mid 100's. Patient taking in some clear liquids. Unable to pee this shift. Bladder scan performed at 2240 for 230mL. Order received from Dr. Huerta to run LR @ 100 overnight for a total of 1 liter. Will continue to monitor.
[2022-07-08] VITALS (25 sets, daily range): BP systolic 90–132; BP diastolic 48–90; PULSE 89–111; RESP 12–20; TEMP 36.3–36.8; O2SAT 89–899
[2022-07-08] MEDS: LORazepam 2 MG/ML inj IVP ×6 (00:02→14:08)
--- NOTE | 2022-07-08 06:05 | PC.NURSE ---
Shift note: The pt has been up and down throughout the night; she slept for a short period of time when Ativan was given; and when she is wake what is going on. where am I The pt has been confused and appeared restless, she has been attempted to get out of the bed several times throughout the night ; Ativan has been given as order with some relief. CIWA score has been 4- 17. The pt has been reoriented throughout the shift. She has been on 1L of oxygen via NC to maintain Spo2 greater than 90%. No Bowel movement this shift. The pt had strong smell urine out put and dark tate at HS; was notified- an order of UA received; No urine yet; we will collect urine sample when the pt urinate next. The pt requested to use BR; BSC was utilized at the bed side x2 this shift; The pt didn't urinate- Bladder scanned for 317 cc at about 0545.
[2022-07-08 08:24] LABS: HCO3 VBG 29 mmol/L (21-28); Lactate* 1.1 mmol/L (0.5-1.9); PCO2 VBG 39 mmHG (40-50); PO2 VBG 72.8 mmHG (25-47); pH VBG 7.476 (7.32-7.43)
[2022-07-08 08:29] LABS: Hematocrit 24.4 % (33.0-51.0); Mean Corpuscular HGB Conc 30 gm/dL (32-36); Mean Corpuscular Hemoglobin 27 pg (26-34); Mean Corpuscular Volume 90 fL (80-100); Platelet Count* 205 K/uL (140-440); White Blood Count* 4.75 K/uL (4.50-11.00)
[2022-07-08 08:49] LABS: Hemoglobin* 7.3 gm/dL (12.0-16.0); Slide Review Reflex No
[2022-07-08 08:50] LABS: Albumin* 3.3 g/dL (3.3-5.0); Chloride* 105 mmol/L (96-114); Sodium* 138 mmol/L (135-149)
[2022-07-08 08:51] LABS: Potassium* 3.4 mmol/L (3.6-5.1)
[2022-07-08 08:52] LABS: Creatinine* 0.5 mg/dL (0.5-1.5); Est. Creatinine Clearance* 45.78; Estimated Glomerular Filt Rate 103 ml/min
[2022-07-08 08:53] LABS: Aspartate Amino Transferase* 35 U/L (12-35); Bilirubin Total* 1.2 mg/dL (0.1-1.5); Blood Urea Nitrogen* 9 mg/dL (7-30); Carbon Dioxide* 26 mmol/L (20-32); Total Protein* 5.7 g/dL (6.0-8.3)
[2022-07-08 08:54] LABS: Alanine Aminotransferase* 19 U/L (4-35); Alkaline Phosphatase* 59 U/L (40-150); Glucose* 94 mg/dL (60-115); Lipase* 59 U/L (23-300); Magnesium* 1.6 mg/dL (1.5-2.6); Phosphorus* 2.8 mg/dL (2.5-4.5)
[2022-07-08 08:56] LABS: C Reactive Protein* 0.9 mg/dL (0.5-1.0)
[2022-07-08 09:27] LABS: Thyroid Stimulating Hormone* 0.839 uIU/mL (0.270-4.20)
[2022-07-08 09:37] LABS: Appearance Urine Slightly Cloudy (Clear); Bilirubin Urine 1+ (Negative); Blood Urine Trace-intact (Negative); Color Urine Orange (Yellow); Glucose Urine Negative (Negative); Ketones Urine Negative (Negative); Leukocyte Esterase Urine 1+ (Negative); Nitrite Urine Negative (Negative); Protein Urine Trace (Negative); Specific Gravity Urine 1.025 (1.000-1.030); Urobilinogen Urine 0.2 (0.2-1.0)
--- NOTE | 2022-07-08 09:41 | REH.OT ---
Per MD, patient not appropriate for OT/PT today. OT spoke with nursing and patient is restless with agitation and currently with 1:1. OT/PT will recheck status tomorrow and eval when appropriate.
[2022-07-08] MEDS: PHENobarbitaL 260 MG in 0.9 % SODIUM CHLORIDE 100 ml 100 ML 208 MG IVPB (09:44)
[2022-07-08] MEDS: PANTOPRAZOLE SODIUM 40 MG INJ IVP (09:44)
[2022-07-08] MEDS: FOLIC ACID 1 MG TABLET PO (09:45)
[2022-07-08] MEDS: DULOXETINE 30 MG CAPSULE DR 60 MG PO (09:45)
[2022-07-08] MEDS: BUSPIRONE 10 MG TABLET 20 MG PO ×2 (09:45→14:40)
[2022-07-08] MEDS: METOPROLOL TARTRATE 50 MG TABLET PO (09:46)
[2022-07-08] MEDS: MULTIVITAMIN/MINERALS 1 TABLET 1 TAB PO (09:46)
--- NOTE | 2022-07-08 10:11 | P.IMPN_ITS ---
Progress Note: A&P Assessment and plan (1) Alcohol intoxication: Problem details: IV fluids; thiamine, folic acid, MVM Status: Acute (2) GI bleed: Problem details: s/p TXA; q6 hgb. consider inpatient scope after stabilization. last scope was 2011; no records easily found. Status: Acute (3) Hypokalemia: Problem details: replace and trend. Status: Acute (4) Anemia: Problem details: chronic disease, now ABLA anemia. 1 U PRBC tx 07/06/22. 1 U PRBC tx 07/07/22. Status: Acute Assessment and Plan: Hg 7.3 g/dl today. Transfuse another 1 U PRBC 07/08/2022. (5) H/O opioid abuse: Problem details: on suboxone. will continue home dosing. 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 Continue with scheduled gabapentin, add scheduled phenobarbital q.a.m., continue with as needed CIWA driven lorazepam protocol. Continue the IV fluids for now. Will ask dietary to see and assist. (14) Cirrhosis, alcoholic: Problem details: 07/07/2022: MELD 3.0 score of 20. MELD Na score 23. MELD score of 22. Status: Acute (15) Nicotine dependence due to vaping non-tobacco product: Problem details: Initiated Nicotrol inhaler device in hospital Status: Acute Time Spent With Patient Total time spent: 40 minutes Subjective Time Seen by Provider: 08:00 Date Seen: 07/08/22 Interval history: Hospital day 3. She is sleepy. Arouses briefly to call of her name. Oriented to self only. Disoriented to place, time, situation. Still actively going through delirium tremens. Focused on wanting to use her nicotine vape. Denies dyspnea at rest, paroxysmal nocturnal dyspnea, orthopnea. Denies any pain or discomfort. Denies dyspnea. Denies syncope or near-syncope. Denies nausea or vomiting. Exam Narrative: Exam Narrative: Appears comfortable at this moment. No acute distress. I awaken her by calling her name and touching her hand. Oriented to self only, not to place, time, situation. No adenopathy in the pre or postauricular chains, anterior-posterior cervical chains, submandibular or submental fossa, supra or infraclavicular fossa, or axilla bilaterally. Neck is supple. Midline trachea. Normal thyroid. No JVD, hepatojugular reflux, or carotid bruits Lungs clear to auscultation. Shallow breaths but able to take deep breaths upon my request. No wheezing, rhonchi, but with end inspiratory fine rales that clear with coughing. No CVA tenderness. Heart tones with regular rhythm, normal S1-S2, without murmur, gallop, or rub. Abdomen with active bowel sounds, soft, nontender. Extremities without edema. Transfers with use of gait belt and standby assist. Cranial nerves 3-12 grossly normal. Capillary refill less than 3 seconds. Const: Vital Signs, click to edit/add: Vital Signs - 24 hr 07/07/22 12:00 07/07/22 14:00 07/07/22 13:00 Temperature 98.0 F 98.5 F Pulse Rate Pulse Rate [Left P ulse Oximeter] 128 H 116 H Respiratory Rate 20 20 Blood Pressure [Ri ght Arm] 129/77 137/68 137/68 Pulse Oximetry 92 93 Oxygen Delivery Me thod Nasal Cannula Nasal Cannula Oxygen Flow Rate 2 2 07/07/22 13:00 07/07/22 14:00 07/07/22 16:42 Temperature 98.0 F 98.7 F Pulse Rate Pulse Rate [Left P ulse Oximeter] 109 H 116 H 120 H Respiratory Rate 20 20 20 Blood Pressure [Ri ght Arm] 134/71 137/68 136/71 Pulse Oximetry 94 93 95 Oxygen Delivery Me thod Nasal Cannula Nasal Cannula Nasal Cannula Oxygen Flow Rate 2 2 2 07/07/22 18:41 07/07/22 20:51 07/07/22 15:00 Temperature 98 F 97.9 F Pulse Rate Pulse Rate [Left P ulse Oximeter] 108 H 122 H Respiratory Rate 20 20 Blood Pressure [Ri ght Arm] 116/62 130/75 Pulse Oximetry 95 95 95 Oxygen Delivery Me thod Nasal Cannula Nasal Cannula Oxygen Flow Rate 2 2 07/07/22 15:00 07/07/22 15:00 07/07/22 22:55 Temperature 98 F Pulse Rate Pulse Rate [Left P ulse Oximeter] 122 H 108 H Respiratory Rate 20 20 20 Blood Pressure [Ri ght Arm] 132/65 Pulse Oximetry 95 96 Oxygen Delivery Me thod Nasal Cannula Nasal Cannula Oxygen Flow Rate 2 2 07/07/22 15:00 07/07/22 19:00 07/07/22 23:30 Temperature 98 F 98.1 F Pulse Rate 103 H Pulse Rate [Left P ulse Oximeter] 106 H 109 H Respiratory Rate 20 20 Blood Pressure [Ri ght Arm] 132/65 115/69 Pulse Oximetry 97 95 Oxygen Delivery Me thod Nasal Cannula Nasal Cannula Oxygen Flow Rate 2 1 07/07/22 23:30 07/07/22 23:30 07/07/22 23:30 Temperature Pulse Rate Pulse Rate [Left P ulse Oximeter] Respiratory Rate 20 20 Blood Pressure [Ri ght Arm] Pulse Oximetry 95 95 Oxygen Delivery Me thod Nasal Cannula Oxygen Flow Rate 1 07/07/22 23:30 07/08/22 00:12 07/08/22 01:09 Temperature 98.1 F Pulse Rate 103 H Pulse Rate [Left P ulse Oximeter] 109 H 105 H Respiratory Rate 20 20 Blood Pressure [Ri ght Arm] 115/69 Pulse Oximetry 95 97 Oxygen Delivery Me thod Nasal Cannula Nasal Cannula Oxygen Flow Rate 1 1 07/08/22 01:00 07/08/22 02:47 07/08/22 03:41 Temperature 98.1 F 98.1 F 98.2 F Pulse Rate Pulse Rate [Left P ulse Oximeter] 95 91 97 Respiratory Rate 20 20 20 Blood Pressure [Ri ght Arm] 114/82 Pulse Oximetry 93 94 96 Oxygen Delivery Me thod Nasal Cannula Nasal Cannula Nasal Cannula Oxygen Flow Rate 1 1 1 07/08/22 03:45 07/08/22 07:00 07/08/22 07:00 Temperature 98.2 F Pulse Rate Pulse Rate [Left P ulse Oximeter] 97 Respiratory Rate 20 Blood Pressure [Ri ght Arm] 114/82 Pulse Oximetry 96 98 94 Oxygen Delivery Me thod Nasal Cannula Nasal Cannula Oxygen Flow Rate 1 1 07/08/22 07:00 07/08/22 07:00 07/08/22 08:10 Temperature 97.3 F L 97.3 F L 97.3 F L Pulse Rate Pulse Rate [Left P ulse Oximeter] 96 96 96 Respiratory Rate 12 12 12 Blood Pressure [Ri ght Arm] 102/69 102/69 102/69 Pulse Oximetry 94 94 94 Oxygen Delivery Me thod Nasal Cannula Nasal Cannula Nasal Cannula Oxygen Flow Rate 1 1 1 07/08/22 09:00 Temperature 97.6 F Pulse Rate Pulse Rate [Left P ulse Oximeter] 111 H Respiratory Rate 12 Blood Pressure [Ri ght Arm] 102/66 Pulse Oximetry 99 Oxygen Delivery Me thod Room Air Oxygen Flow Rate Documenting provider has reviewed patient's vital signs: yes Labs Labs: Laboratory Results - last 24 hr 07/06/22 07/07/22 07/07/22 18:20 11:15 21:28 WBC RBC Hgb 7.9 L* 7.9 L* Hct MCV MCH MCHC Plt Count VBG pH VBG pCO2 VBG pO2 VBG HCO3 Sodium Potassium Chloride Carbon Dioxide BUN Creatinine Estimated Creat Clear Estimated GFR Glucose Lactate Calcium Phosphorus Magnesium Total Bilirubin Direct Bilirubin AST ALT Alkaline Phosphatase C-Reactive Protein Total Protein Albumin Lipase TSH Crossmatch ([facility]) See Detail 07/08/22 07/08/22 07/08/22 08:09 08:09 08:09 WBC 4.75 RBC 2.70 L Hgb 7.3 L* Hct 24.4 L MCV 90 MCH 27 MCHC 30 L Plt Count 205 VBG pH 7.476 H VBG pCO2 39 L VBG pO2 72.8 H VBG HCO3 29 H Sodium 138 Potassium 3.4 L Chloride 105 Carbon Dioxide 26 BUN 9 Creatinine 0.5 Estimated Creat Clear 45.78 Estimated GFR 103 Glucose 94 Lactate 1.1 Calcium 8.0 L Phosphorus 2.8 Magnesium 1.6 Total Bilirubin 1.2 Direct Bilirubin 0.0 AST 35 ALT 19 Alkaline Phosphatase 59 C-Reactive Protein 0.9 Total Protein 5.7 L Albumin 3.3 Lipase 59 TSH Crossmatch ([facility]) 07/08/22 08:09 WBC RBC Hgb Hct MCV MCH MCHC Plt Count VBG pH VBG pCO2 VBG pO2 VBG HCO3 Sodium Potassium Chloride Carbon Dioxide BUN Creatinine Estimated Creat Clear Estimated GFR Glucose Lactate Calcium Phosphorus Magnesium Total Bilirubin Direct Bilirubin AST ALT Alkaline Phosphatase C-Reactive Protein Total Protein Albumin Lipase TSH 0.839 Crossmatch ([facility])
[2022-07-08 10:21] LABS: Bacteria Urine Moderate; Squamous Epithelial Cell Urine Moderate (None-Few)
[2022-07-08] MEDS: THIAMINE 250 MG in 0.9 % SODIUM CHLORIDE 100 ml 100 ML 102.5 MG IVPB ×3 (10:28→21:51)
--- NOTE | 2022-07-08 10:43 | RESP.RT ---
Notified of PT's high CO2 by charge nurse. evaluated PT. Pt. is withdrawing from ETOH at this time. She is sitting in chair, talking and looking in her purse. SPO2 96% on RA. Will follow today. Note that Pt would not be a candidate for BIPAP secondary to airway protection concerns. HFNC may be an option, otherwise intubation. Consider if sedation is causing some of this, and if it needs to be dosed differently.
[2022-07-08] MEDS: POTASSIUM BICARB 25 MEQ EFFERVESCENT TAB PO (11:43)
[2022-07-08] MEDS: BUPRENORPHINE-NALOX 8-2MG FILM 1 EACH SUBLINGUAL (14:17)
--- NOTE | 2022-07-08 18:09 | PC.NURSE ---
End of shift-- Pt has been alternating between drowsiness and restlessness today. Currently patient is sleeping but arouses to verbal stimuli. Oriented to person and year only. She denied any pain. VSS and pt is afebrile. SPO2 maintained >88% on RA. CIWAs ranged from 4-11 today and pt was given Ativan per protocol in addition to phenobarbital per MD order. See eMAR for details. Telemetry shows NSR. She denied nausea, but ate only bites/sips of clear liquids today. LS CTA. Pt voided approximately 400ml of dark tate urine today. She attempted to use the commode 4x, but was successful only once. Urine sample was sent per MD order. She was up to the chair and commode with assist of 2 and gait belt and tolerated it fair. Pt is very unsteady on her feet. Spoke with sister via telephone today for an update and all questions were answered. Daughter Irma was at bedside this evening, but she was not listed on information authorization form and pt is currently unable to ariadne permission, so was unable to give her any medical information. She did request to speak with social work and a message with her phone number was left with charge nurse and also placed in front pocket of the chart. Report to oncoming shift.
[2022-07-08] MEDS: LACTATED RINGERS 1000 ML 1,000 ML 500 ML IV (21:52)
[2022-07-08 22:43] LABS: HCO3 VBG 29 mmol/L (21-28); PCO2 VBG 49 mmHG (40-50); PO2 VBG 54.8 mmHG (25-47); pH VBG 7.378 (7.32-7.43)
[2022-07-09] VITALS (25 sets, daily range): BP systolic 106–140; BP diastolic 60–89; PULSE 89–132; RESP 16–28; TEMP 35.9–36.7; O2SAT 90–98; BMI 35.7
[2022-07-09] MEDS: 5 % DEXTROSE IN LAC RINGER'S 1,000 ML 125 ML IV ×3 (01:55→21:03)
[2022-07-09] MEDS: LORazepam 2 MG/ML inj IVP ×9 (03:23→19:10)
[2022-07-09 06:32] LABS: HCO3 VBG 30 mmol/L (21-28); Lactate* 1.4 mmol/L (0.5-1.9); PCO2 VBG 51 mmHG (40-50); PO2 VBG 43.4 mmHG (25-47); pH VBG 7.372 (7.32-7.43)
[2022-07-09 06:41] LABS: Hematocrit 27.6 % (33.0-51.0); Hemoglobin* 8.4 gm/dL (12.0-16.0); Mean Corpuscular HGB Conc 30 gm/dL (32-36); Mean Corpuscular Hemoglobin 27 pg (26-34); Mean Corpuscular Volume 89 fL (80-100); Platelet Count* 206 K/uL (140-440); White Blood Count* 4.48 K/uL (4.50-11.00)
[2022-07-09 06:42] LABS: Slide Review Reflex No
[2022-07-09 07:17] LABS: Albumin* 3.4 g/dL (3.3-5.0); Chloride* 103 mmol/L (96-114)
[2022-07-09 07:18] LABS: Potassium* 3.6 mmol/L (3.6-5.1); Sodium* 137 mmol/L (135-149)
[2022-07-09 07:19] LABS: Creatinine* 0.6 mg/dL (0.5-1.5); Est. Creatinine Clearance* 45.78; Estimated Glomerular Filt Rate 99 ml/min
[2022-07-09 07:20] LABS: Alanine Aminotransferase* 21 U/L (4-35); Alkaline Phosphatase* 68 U/L (40-150); Aspartate Amino Transferase* 39 U/L (12-35); Bilirubin Total* 1.4 mg/dL (0.1-1.5); Blood Urea Nitrogen* 8 mg/dL (7-30); Carbon Dioxide* 28 mmol/L (20-32); Glucose* 128 mg/dL (60-115); Total Protein* 5.8 g/dL (6.0-8.3)
[2022-07-09 07:21] LABS: Magnesium* 1.6 mg/dL (1.5-2.6); Phosphorus* 3.1 mg/dL (2.5-4.5)
[2022-07-09 07:23] LABS: C Reactive Protein* 1.2 mg/dL (0.5-1.0)
--- NOTE | 2022-07-09 07:29 | PC.NURSE ---
shift note : Pt oriented to self only at times, reoriented as needed but pt was unreceptive. Pt had not urinated last night, updated and fluids ordered, pt still has not urinated this AM despite being up to BSC x2, bladder scan at 0600 was 304ml, MD updated. Pt given Ativan last night x1 for CIWA 11, effective and pt has been sleeping since. Pt a heavy 2 assist. Oxygen saturations in the low 90's on RA. Tele reads NSR to sinus tach.
[2022-07-09 07:45] LABS: INR 1.16 (0.91-1.10); Prothrombin Time 15.5 Seconds
--- NOTE | 2022-07-09 09:05 | REH.OT ---
Per team rounds and speaking with patient's RN, patient is not yet appropriate for OT/PT evals due to current status. Therapies will monitor status and complete evals when medically appropriate.
[2022-07-09] MEDS: BUPRENORPHINE-NALOX 8-2MG FILM 1 EACH SUBLINGUAL (09:34)
[2022-07-09] MEDS: PANTOPRAZOLE SODIUM 40 MG INJ IVP (09:34)
[2022-07-09] MEDS: BUSPIRONE 10 MG TABLET 20 MG PO (09:35)
[2022-07-09] MEDS: DULOXETINE 30 MG CAPSULE DR 60 MG PO (09:35)
[2022-07-09] MEDS: MULTIVITAMIN/MINERALS 1 TABLET 1 TAB PO (09:35)
[2022-07-09] MEDS: FOLIC ACID 1 MG TABLET PO (09:36)
[2022-07-09] MEDS: METOPROLOL TARTRATE 50 MG TABLET PO (09:36)
[2022-07-09] MEDS: THIAMINE 250 MG in 0.9 % SODIUM CHLORIDE 100 ml 100 ML 102.5 MG IVPB ×3 (09:37→21:02)
[2022-07-09] MEDS: PHENobarbitaL 260 MG in 0.9 % SODIUM CHLORIDE 100 ml 100 ML 208 MG IVPB ×2 (10:44→19:58)
[2022-07-09] MEDS: ALBUTEROL INHALER 1 PUFF IH (11:41)
--- NOTE | 2022-07-09 12:11 | PC.NURSE ---
End of shift. Pt has been confused and agitated and up and down while awake. she got IV Ativan 2 times. she has been a 1 to 1 while awake. she is alert to self only. IV has been patent. she is taking in clears with help but I needed to crush meds to get her am medications in. tele shows Sinus tachycardia. cont sao2 is on. Sao2 above 90%. she was not able to void on the BSC . we finally did get her up to the BR with the pal lift. she she voided 300cc of bark urine. Ciwa 5-13. ativsan given. she is up with 2 assist to BSC and BR. she needs alot of direction with moving. Pt is very unsteady on her feet.? no scds as it was agitation the pt. Rn or NA has been one to one when awake.
--- NOTE | 2022-07-09 13:17 | CRLHL7_ITS ---
For Patients: As a result of the Century Cures Act, medical imaging exams and procedure reports are released immediately into your electronic medical record. You may view this report before your referring provider. If you have questions, please contact your health care provider. INDICATION: Delirium tremens. TECHNIQUE: Chest 1 views. COMPARISON: Chest x-ray from 12/13/2017. FINDINGS: Lungs: Diffuse interstitial opacities suggest mild pulmonary edema. No focal consolidation. Pleura: No pleural effusion or pneumothorax. Heart and Mediastinum: The cardiomediastinal silhouette is mildly enlarged. The vessels are unremarkable. Bones: Unremarkable. IMPRESSION: Findings can be seen with congestive heart failure. Dictated by Carlos Cid MD @ 07/09/2022 2:40:38 PM (Electronically Signed)
--- NOTE | 2022-07-09 13:23 | P.IMPN_ITS ---
Progress Note: A&P Assessment and plan (1) Alcohol intoxication: Problem details: IV fluids; thiamine, folic acid, MVM Status: Acute Assessment and Plan: Obviously no longer acutely intoxicated. Actively going through delirium tremens at this time. (2) GI bleed: Problem details: s/p TXA; q6 hgb. consider inpatient scope after stabilization. last scope was 2011; no records easily found. Status: Acute Assessment and Plan: Not actively bleeding at this time. (3) Hypokalemia: Problem details: replace and trend. Status: Acute Assessment and Plan: Stable at this time. (4) Anemia: Problem details: Previously anemia of chronic disease, now ABLA anemia. 1 U PRBC tx 07/06/22. 1 U PRBC tx 07/07/22. 1 U PRBC tx 07/08/2022. Status: Acute (5) H/O opioid abuse: Problem details: On suboxone in outpatient setting. Because of her delirium tremens were unable to give her this medicine orally. Status: Acute (6) History of Leonardo-en-Y gastric bypass: Problem details: January 2013 Status: Acute (7) Unspecified essential hypertension: Problem details: trend/monitor Status: Acute (8) Major depressive disorder, recurrent severe without psychotic features: Problem details: continue home cymbalta dosing Status: Acute (9) Alcohol use disorder, severe, dependence: Problem details: Patient acknowledges drinking 1 pt of vodka daily up until this admission. 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 Status: Acute (12) Coagulation disorder: Problem details: elevated INR; repeat coags, abd u/s demonstrated hepatic steatosis Status: Acute (13) Delirium tremens: Problem details: CIWA driven PRN lorazepam protocol and scheduled phenobarbital and as needed phenobarbital. Status: Acute Assessment and Plan: 1. Stable at this time. (14) Cirrhosis, alcoholic: Problem details: 07/07/2022: MELD 3.0 score of 20. MELD Na score 23. MELD score of 22. Status: Acute (15) Nicotine dependence due to vaping non-tobacco product: Problem details: Initiated Nicotrol inhaler device as needed in hospital. Status: Acute (16) Protein calorie malnutrition: Status: Acute (17) Urinary retention: Problem details: Postvoid residual 300 mL Status: Acute (18) Decreased urine output: Status: Acute (19) Leukopenia: Problem details: Impart related to alcohol-induced marrow suppression Status: Acute Plan 1. Continue with the supportive efforts as we presently having place, including use of phenobarbital and lorazepam plus close monitoring and supervision. 2. Continue with IV fluids. 3. Continue with one-to-one nursing support. 4. Check a portable chest x-ray. 5. Consider soft tissue exam of neck. 6. I tried to call the patient's sister, Janell, who is listed as the primary contact, yesterday and kept receiving a message that I was dialing and incorrect number. Attempted again today and received the same message. Today I also attempted to call the patient's brother, Sunil, who is listed as secondary contact. I updated him on his sister's condition. I expressed my concern for her well-being and emphasize the fact that she is in full-blown delirium tremens at this time. Answered his questions to satisfaction. He gave me the correct telephone number for his sister, Janell. Janell's home number is [phone]. Janell's cell phone number is [phone]. I attempted calling Janell at both of these numbers and received a voicemail only. I left messages on both of these telephone numbers indicating that I was trying to reach her, that I had spoken with her brother Sunil, and asked her to try to reach her brother Sunil to obtain additional information regard to her sisters well-being at this time. I further indicated that I will try again to get a hold of her tomorrow. Time Spent With Patient Total time spent: 60 minutes Subjective Time Seen by Provider: 07:30 Date Seen: 07/09/22 Interval history: Hospital day 4. She is still actively going through delirium tremens. She is unable to engage in any meaningful dialogue. Hence unable to obtain any meaningful history from her at this time. Eyes are closed most of the time. Might arouse briefly to us calling out her name. Intermittent episodes of agitation. Attempts to get up to go to the bathroom and urinate. decreased urine output noted. Does have some mild urinary retention, around 300 mL. Exam Narrative: Exam Narrative: No obvious acute distress. Unable to engage in any meaningful dialogue our discussion. Does mumble at times. Eyes closed most of the time. Will open her eyes briefly as I call out her name. At times will follow simple 1 step commands. Unable to follow any 2 step commands. Moves all 4 extremities. Able to sit on the edge of the bed and transfer to a commode with assist. No focal motor neurologic deficits. At times when she breathes, she does so quietly. Other times when she breathes, she has an upper airway stridorous sound on exhalation. Edentulous. Crowded posterior oropharynx. Gag reflex intact. Lungs nevertheless are clear without any wheezing, rhonchi, or rales. Heart tones with regular rhythm. Normal S1-S2. No murmur, gallop, or rub. Abdomen with active bowel sounds, soft, nontender. Extremities without edema. Palpable pulses upper and lower extremities. Capillary refill less 3 seconds in upper and lower extremities. Skin is warm, dry, intact. No petechiae, jaundice, rash, or cyanosis. Const: Vital Signs, click to edit/add: Vital Signs - 24 hr 07/08/22 14:00 07/08/22 15:00 07/08/22 15:00 Temperature 97.9 F Pulse Rate Pulse Rate [Left P ulse Oximeter] 94 Respiratory Rate 14 14 Blood Pressure Blood Pressure [Ri ght Arm] 99/83 Pulse Oximetry 96 92 91 Oxygen Delivery Me thod Room Air Room Air Oxygen Flow Rate 07/08/22 15:00 07/08/22 15:00 07/08/22 15:00 Temperature 97.7 F 97.7 F Pulse Rate 89 Pulse Rate [Left P ulse Oximeter] 94 94 Respiratory Rate 14 14 Blood Pressure Blood Pressure [Ri ght Arm] 90/61 90/61 Pulse Oximetry 92 92 Oxygen Delivery Me thod Room Air Room Air Oxygen Flow Rate 07/08/22 16:00 07/08/22 15:00 07/08/22 16:06 Temperature 97.7 F 97.7 F Pulse Rate 94 Pulse Rate [Left P ulse Oximeter] 99 99 Respiratory Rate 14 14 14 Blood Pressure 103/77 Blood Pressure [Ri ght Arm] 103/77 Pulse Oximetry 89 90 Oxygen Delivery Me thod Room Air Oxygen Flow Rate 07/08/22 17:00 07/08/22 18:00 07/08/22 19:00 Temperature 97.7 F 97.8 F Pulse Rate Pulse Rate [Left P ulse Oximeter] 97 97 100 Respiratory Rate 14 12 16 Blood Pressure Blood Pressure [Ri ght Arm] 118/81 124/69 121/90 H Pulse Oximetry 92 92 90 Oxygen Delivery Me thod Room Air Room Air Room Air Oxygen Flow Rate 07/08/22 23:00 07/08/22 23:00 07/08/22 23:00 Temperature 97.9 F Pulse Rate 101 H Pulse Rate [Left P ulse Oximeter] 102 H Respiratory Rate 18 Blood Pressure Blood Pressure [Ri ght Arm] 127/76 Pulse Oximetry 90 90 Oxygen Delivery Me thod Room Air Oxygen Flow Rate 07/08/22 23:00 07/09/22 03:00 07/09/22 03:00 Temperature 97.3 F L 97.3 F L Pulse Rate Pulse Rate [Left P ulse Oximeter] 104 H 104 H Respiratory Rate 16 20 20 Blood Pressure Blood Pressure [Ri ght Arm] 140/65 H 140/65 H Pulse Oximetry 90 90 90 Oxygen Delivery Me thod Room Air Room Air Room Air Oxygen Flow Rate 07/09/22 05:00 07/09/22 06:00 07/09/22 07:33 Temperature Pulse Rate 100 Pulse Rate [Left P ulse Oximeter] 108 H 105 H Respiratory Rate 24 Blood Pressure Blood Pressure [Ri ght Arm] Pulse Oximetry 90 91 Oxygen Delivery Me thod Room Air Room Air Oxygen Flow Rate 07/09/22 08:18 07/09/22 08:00 07/09/22 08:00 Temperature 97.2 F L Pulse Rate Pulse Rate [Left P ulse Oximeter] 104 H Respiratory Rate 24 24 Blood Pressure Blood Pressure [Ri ght Arm] 127/65 Pulse Oximetry 90 90 90 Oxygen Delivery Me thod Room Air Room Air Oxygen Flow Rate 07/09/22 08:00 07/09/22 10:14 07/09/22 09:30 Temperature 97.2 F L 97.2 F L Pulse Rate Pulse Rate [Left P ulse Oximeter] 104 H 104 H 132 H Respiratory Rate 26 H 26 H Blood Pressure Blood Pressure [Ri ght Arm] 134/77 112/68 Pulse Oximetry 94 91 Oxygen Delivery Me thod Room Air Room Air Oxygen Flow Rate 1 1 07/09/22 11:00 07/09/22 11:02 07/09/22 12:54 Temperature 97.0 F L 97.0 F L 96.7 F L Pulse Rate Pulse Rate [Left P ulse Oximeter] 105 H 105 H 92 Respiratory Rate 28 H 28 H 16 Blood Pressure Blood Pressure [Ri ght Arm] 131/68 131/68 116/79 Pulse Oximetry 98 98 96 Oxygen Delivery Me thod Room Air Room Air Room Air Oxygen Flow Rate 1 1 Labs Labs: Laboratory Results - last 24 hr 07/06/22 07/08/22 07/09/22 18:20 22:30 06:18 WBC 4.48 L RBC 3.10 L Hgb 8.4 L Hct 27.6 L MCV 89 MCH 27 MCHC 30 L Plt Count 206 INR VBG pH 7.378 VBG pCO2 49 VBG pO2 54.8 H VBG HCO3 29 H Sodium Potassium Chloride Carbon Dioxide BUN Creatinine Estimated Creat Clear Estimated GFR Glucose Lactate Calcium Phosphorus Magnesium Total Bilirubin Direct Bilirubin AST ALT Alkaline Phosphatase C-Reactive Protein Total Protein Albumin Crossmatch (G) See Detail 07/09/22 07/09/22 07/09/22 06:18 06:18 06:18 WBC RBC Hgb Hct MCV MCH MCHC Plt Count INR 1.16 H VBG pH 7.372 VBG pCO2 51 H VBG pO2 43.4 VBG HCO3 30 H Sodium 137 Potassium 3.6 Chloride 103 Carbon Dioxide 28 BUN 8 Creatinine 0.6 Estimated Creat Clear 45.78 Estimated GFR 99 Glucose 128 H Lactate 1.4 Calcium 8.0 L Phosphorus 3.1 Magnesium 1.6 Total Bilirubin 1.4 Direct Bilirubin 0.0 AST 39 H ALT 21 Alkaline Phosphatase 68 C-Reactive Protein 1.2 H Total Protein 5.8 L Albumin 3.4 Crossmatch ([facility])
--- NOTE | 2022-07-09 14:28 | PC.SOCIAL ---
Spoke with pt.'s daughter Irma @ [phone]. She is not listed as a contact and pt. is not awake enough to give consent. Reminded Irma we could not share any information with her but she wanted to give her Hx and concern about pt. She shared that pt. had a cognitive work up 4 years ago that showed cognitive decline at that time. Pt. has had a long Hx of addiction and drinks a pint of Vodka daily. Pt has been to CD treatment numerous times. Irma tried to get pt. on waiver services due to concerns pt. needed more assistance 4 years ago, but pt. had just gotten her pension and was over income. Irma states pt. has spent down her pension now and thinks she would qualify for services, but pt. will not follow-through to get assistance at home. Pt. had a Rule 25 assessment for CD treatment three years ago and has been to treatment numerous times. Irma and pt.'s sister are not an option for placement as pt. has burned her bridges with both of them. Irma would like to be present for any testing/therapies that pt. does and wants to be involved in the discharge plans if pt. will give consent. volunteer services supervisor will continue to work on discharge planning needs.
[2022-07-09 15:38] LABS: HCO3 VBG 29 mmol/L (21-28); Lactate* 1.3 mmol/L (0.5-1.9); PCO2 VBG 54 mmHG (40-50); PO2 VBG 70.9 mmHG (25-47); pH VBG 7.335 (7.32-7.43)
[2022-07-09 15:47] LABS: Appearance Urine Clear (Clear); Bilirubin Urine 1+ (Negative); Blood Urine Negative (Negative); Color Urine Amber (Yellow); Glucose Urine Negative (Negative); Ketones Urine Negative (Negative); Leukocyte Esterase Urine Negative (Negative); Nitrite Urine Negative (Negative); Protein Urine Trace (Negative); Specific Gravity Urine 1.025 (1.000-1.030); Urobilinogen Urine 0.2 (0.2-1.0)
[2022-07-09 15:56] LABS: RBC Urine 0-2 (0-2); Squamous Epithelial Cell Urine Few (None-Few); WBC Urine 0-2 (0-5)
[2022-07-09 16:18] LABS: NT Pro B Type NatriureticPept* 458 PG/mL (0-125)
[2022-07-09 16:22] LABS: Troponin I* 0.03 ng/mL (0.01-0.04)
--- NOTE | 2022-07-09 18:38 | PC.NURSE ---
End of Shift Note: Took patient over around 1300 today. She has had moments where she is very agitated hard to redirect and trying to get oob. Also placed a painter to get accurate I & O on her. Her urine is dark tate in color. Sent specimen to the lab. She is getting ativan for her agitation. She has not taken anything by mouth this shift for me as she does not open her eye when asked and doesn't follow directions. See [facility] for scores. Will continue to monitor for safety until next shift arrives.
[2022-07-10] VITALS (34 sets, daily range): BP systolic 113–155; BP diastolic 49–101; PULSE 94–138; RESP 12–30; TEMP 36.4–37.1; O2SAT 89–100
[2022-07-10] MEDS: LORazepam 2 MG/ML inj IVP ×5 (02:00→22:27)
[2022-07-10] MEDS: PHENobarbitaL 130 MG in 0.9 % SODIUM CHLORIDE 100 ml 100 ML 204 MG IVPB ×3 (02:23→17:24)
--- NOTE | 2022-07-10 06:28 | PC.NURSE ---
shift note -: Pt off and on restless and requiring Ativan, additional phenobarbital ordered by and given to pt with better results than the Ativan. When pt is awake, she is unable to follow instructions, and is not able to be redirected. Oxygen saturations in the low to mid 90's on RA, tele reads SR to ST, afebrile. Pt turned and repositioned with a 2 assist. Allen patent and draining, urine is still tate colored and strong.
[2022-07-10] MEDS: 5 % DEXTROSE IN LAC RINGER'S 1,000 ML 125 ML IV ×2 (07:28→15:18)
[2022-07-10 07:30] LABS: HCO3 VBG 32 mmol/L (21-28); Ionized Calcium* 0.99 mmol/L (1.11-1.30); Lactate* 1.4 mmol/L (0.5-1.9); PCO2 VBG 49 mmHG (40-50); PO2 VBG 52.2 mmHG (25-47); pH VBG 7.428 (7.32-7.43)
[2022-07-10 07:42] LABS: Chloride* 104 mmol/L (96-114); Glucose* 133 mg/dL (60-115); Potassium* 4.3 mmol/L (3.6-5.1); Sodium* 141 mmol/L (135-149)
[2022-07-10 08:10] LABS: Carbon Dioxide* 22 mmol/L (20-32)
[2022-07-10 08:11] LABS: Alanine Aminotransferase* 23 U/L (4-35); Albumin* 3.3 g/dL (3.3-5.0); Alkaline Phosphatase* 52 U/L (40-150); Aspartate Amino Transferase* 51 U/L (12-35); Bilirubin Total* 1.4 mg/dL (0.1-1.5); Blood Urea Nitrogen* 6 mg/dL (7-30); Calcium* 7.9 mg/dL (8.4-10.6); Creatinine* 0.5 mg/dL (0.5-1.5); Est. Creatinine Clearance* 45.78; Estimated Glomerular Filt Rate 103 ml/min; Phosphorus* 3.4 mg/dL (2.5-4.5); Total Protein* 5.8 g/dL (6.0-8.3)
[2022-07-10 08:12] LABS: C Reactive Protein* 1.7 mg/dL (0.5-1.0); Lipase* 29 U/L (23-300); Magnesium* 1.5 mg/dL (1.5-2.6); NT Pro B Type NatriureticPept* 766 PG/mL (0-125); Procalcitonin* 0.05 ng/mL (<0.50); Troponin I* 0.03 ng/mL (0.01-0.04)
[2022-07-10] MEDS: FUROSEMIDE 10 MG/ML inj 40 MG IVP (08:16)
[2022-07-10 08:17] LABS: Basophils Absolute Auto 0.03 K/uL (0.00-0.30); Basophils Percent Auto 0.6 % (0.0-3.0); Eosinophils Absolute Auto 0.12 K/uL (0.00-0.50); Eosinophils Percent Auto 2.4 % (0.0-7.0); Hematocrit 27.8 % (33.0-51.0); Hemoglobin* 8.4 gm/dL (12.0-16.0); Immature Granulocytes Abs Auto 0.01 K/uL (0.00-0.30); Lymphocytes Percent Auto 15.4 % (20-44); Mean Corpuscular HGB Conc 30 gm/dL (32-36); Mean Corpuscular Hemoglobin 27 pg (26-34); Mean Corpuscular Volume 89 fL (80-100); Monocytes Percent Auto 8.7 % (0.0-11.0); Neutrophils Percent Auto 72.7 % (42.0-72.0); Platelet Count* 208 K/uL (140-440); RDW Coefficient of Variation % 17.5 % (11.5-15.5); Red Blood Count 3.12 m/uL (4.00-5.20); White Blood Count* 4.93 K/uL (4.50-11.00)
[2022-07-10 08:28] LABS: Slide Review Reflex No
[2022-07-10 08:37] LABS: D Dimer Quantitative* 0.72 ug/ml (0.00-0.50)
--- NOTE | 2022-07-10 09:09 | REH.PT ---
PT/OT note: pt not ready for PT/OT this week. Will dc orders. Therapy available for consult as pt's condition improves.
[2022-07-10] MEDS: BUPRENORPHINE-NALOX 8-2MG FILM 1 EACH SUBLINGUAL ×2 (09:16→22:56)
[2022-07-10 09:42] LABS: Thyroid Stimulating Hormone* 0.492 uIU/mL (0.270-4.20)
[2022-07-10] MEDS: PANTOPRAZOLE SODIUM 40 MG INJ IVP (10:04)
[2022-07-10] MEDS: NICOTINE 14 mg PATCH 1 PATCH TRANSDERMA (10:05)
[2022-07-10] MEDS: POTASSIUM CHLORIDE 10 MEQ/100 ML PIGGYBACK 100 MEQ IVPB ×6 (13:10→19:04)
[2022-07-10 13:38] LABS: Magnesium* 1.3 mg/dL (1.5-2.6)
[2022-07-10 13:44] LABS: Potassium* 2.8 mmol/L (3.6-5.1)
[2022-07-10] MEDS: MAGNESIUM IV 2 GM/50 ML PIGGYBACK IVPB (14:25)
--- NOTE | 2022-07-10 15:00 | PC.NURSE ---
End of shift.? Pt is more confused today and agitated and up and down while awake. ? she got IV Ativan 3 times.? she has been a 1 to 1at times .? she is alert to touch . ? IV has been patent. ? she is not able to take in po meds ? tele shows Sinus tachycardia. ? cont sao2 is on.? Sao2 above 89% . ? painter is patent .? Ciwa 5-23? ativsan given.?.? no scds as it was agitation the pt.? Rn or NA has been one to one when awake.? K and mag given. she is turn and repo;
--- NOTE | 2022-07-10 16:00 | CRLHL7_ITS ---
For Patients: As a result of the Century Cures Act, medical imaging exams and procedure reports are released immediately into your electronic medical record. You may view this report before your referring provider. If you have questions, please contact your health care provider. INDICATION: PICC line placement. COMPARISON: July 09, 2022. TECHNIQUE: Single view portable chest radiograph. FINDINGS: Interval placement of a left arm PICC with tip terminating near the superior caval atrial junction. Stable cardiomediastinal contours. Similar pulmonary opacities favored edema. Possible small left pleural effusion. No significant pneumothorax. IMPRESSION: Left arm PICC tip terminates near the superior cavoatrial junction. Dictated by Rj Benitez MD @ 07/10/2022 6:12:18 PM (Electronically Signed)
--- NOTE | 2022-07-10 16:00 | CRLHL7_ITS ---
For Patients: As a result of the Century Cures Act, medical imaging exams and procedure reports are released immediately into your electronic medical record. You may view this report before your referring provider. If you have questions, please contact your health care provider. Indication: PICC placement Technique: Grayscale ultrasound of the right basilic vein, left basilic vein and right IJ. Comparison: None Findings: There is hypoechoic noncompressible clot within the right basilic vein. The left basilic vein is patent. Impression: Ultrasound guided placement of PICC line into the left basilic vein. Short segment superficial clot within the right basilic vein. Dictated by Prosper Lyle MD @ 07/13/2022 9:01:33 AM (Electronically Signed)
--- NOTE | 2022-07-10 16:09 | P.IMPN_ITS ---
Progress Note: A&P Assessment and plan (1) Alcohol intoxication: Problem details: IV fluids; thiamine, folic acid, MVM Status: Acute (2) GI bleed: Problem details: s/p TXA; q6 hgb. consider inpatient scope after stabilization. last scope was 2011; no records easily found. Status: Acute Assessment and Plan: Has not had any further GI bleed since day 2 of her hospital stay. (3) Hypokalemia: Problem details: replace and trend. Status: Acute Assessment and Plan: Potassium level down to 2.8 today how to 4 L of diuresis. Given her decreased level of awareness, we are attempting to provide potassium supplementation intravenously at this time. (4) Anemia: Problem details: Previously anemia of chronic disease, now ABLA anemia. 1 U PRBC tx 07/06/22. 1 U PRBC tx 07/07/22. 1 U PRBC tx 07/08/2022. Status: Acute (5) H/O opioid abuse: Problem details: On suboxone in outpatient setting. Because of her delirium tremens were unable to give her this medicine orally. Status: Acute (6) History of Leonardo-en-Y gastric bypass: Problem details: January 2013 Status: Acute (7) Unspecified essential hypertension: Problem details: trend/monitor Status: Acute (8) Major depressive disorder, recurrent severe without psychotic features: Problem details: continue home cymbalta dosing Status: Acute (9) Alcohol use disorder, severe, dependence: Problem details: Patient acknowledges drinking 1 pt of vodka daily up until this admission. 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 Status: Acute (12) Coagulation disorder: Problem details: elevated INR; repeat coags, abd u/s demonstrated hepatic steatosis Status: Acute (13) Delirium tremens: Problem details: CIWA driven PRN lorazepam protocol and scheduled phenobarbital and as needed phenobarbital. Status: Acute Assessment and Plan: I am scheduling her lorazepam 1 mg IV q.4 hours and continue with the p.r.n. lorazepam per CIWA driven protocol. In time, the dose of the scheduled lorazepam will need to decreased, and eventually stopped. I am scheduling the phenobarbital 130 mg IV every 8 hours for now. In time, the does of the scheduled phenobarbital per 24 hours may need to be decreased, and eventually stopped. (14) Cirrhosis, alcoholic: Problem details: 07/07/2022: MELD 3.0 score of 20. MELD Na score 23. MELD score of 22. Status: Acute (15) Nicotine dependence due to vaping non-tobacco product: Problem details: Initiated Nicotrol inhaler device as needed in hospital. Status: Acute (16) Protein calorie malnutrition: Status: Acute Assessment and Plan: May need to consider enteric feeding. (17) Urinary retention: Problem details: Postvoid residual 300 mL Status: Acute Assessment and Plan: Allen catheter is now placed. (18) Decreased urine output: Status: Acute (19) Leukopenia: Problem details: Impart related to alcohol-induced marrow suppression Status: Acute (20) Volume overload state of heart: Problem details: Chest x-ray and echocardiogram suggests this. NT pro-BNP 760 07/10/2022. Status: Acute Assessment and Plan: Single dose of furosemide 40 mg IV given today. Excellent urine output subsequently. Plan I did call and speak with the patient's brother, Sunil, yesterday. I attempted to call the sister, Janell Garcia, but was unable to reach her yesterday. Sunil is the secondary contact. He said we can contact him 24 hours a day. I was able to reach the patient's sister, Janell Garcia, cell phone [phone], today. I updated Janell callejas on her sister's condition. Janell gave us permission to place a PICC line. Janell will be in to see her sister tomorrow. Janell is available 24 hours a day if we have questions or concerns. Time Spent With Patient Total time spent: 80 minutes Subjective Time Seen by Provider: 07:30 Date Seen: 07/10/22 Interval history: Hospital day 5. Continues to have delirium tremens. She is unable to engage in any meaningful dialogue. Hence unable to obtain any meaningful history from her at this time. Eyes are closed most of the time. Might arouse briefly to calling out her name. Intermittent episodes of agitation. Attempts to get up to go to the bathroom and urinate. Continues to have decreased urine output. Has Allen catheter placed now. Exam Narrative: Exam Narrative: Eyes are closed. Opens her eyes momentarily at times as we call out her name and speak with her. Place in bed. Becomes agitated at times. Attempts to sit at the edge of the bed sometimes. No longer states that she has to go to the bathroom. Has Allen catheter in place now. Did have a bowel movement today. Able to tell me her name. Not oriented to place, time, or situation. Able to follow simple 1 step commands when aroused enough. Not able to follow multiple step commands. No focal peripheral motor neurologic deficits. Hearing is preserved. Edentulous. No oral lesions. Tight oral aperture. Gag still in place. Neck supple. Midline trachea. Full neck. Lungs are clear to auscultation. Heart tones tachycardic, regular rhythm. Abdomen with active bowel sounds, soft, nontender. No edema peripherally. Palpable pulses upper and lower extremities. Skin is warm, dry, intact. Patient had roughly 4 L urine output from a 40 mg IV dose of furosemide. Const: Vital Signs, click to edit/add: Vital Signs - 24 hr 07/09/22 17:00 07/09/22 18:00 07/09/22 19:00 Temperature 97.6 F 97.8 F 97.9 F Pulse Rate Pulse Rate [Left P ulse Oximeter] 92 89 92 Respiratory Rate 16 16 20 Blood Pressure [Ri t Arm] 109/64 116/65 115/70 Pulse Oximetry 93 95 90 [facility] Room [facility] Room Air Oxygen Flow Rate 07/09/22 20:00 07/09/22 21:00 07/09/22 22:00 Temperature 97.9 F 98.0 F 97.9 F Pulse Rate Pulse Rate [Left P ulse Oximeter] 91 92 92 Respiratory Rate 18 20 20 Blood Pressure [Ri t Arm] 111/62 107/64 116/70 Pulse Oximetry 91 92 92 Oxygen Delivery [facility] Room Air Room Air Room Air Oxygen Flow Rate 07/09/22 23:00 07/09/22 23:00 07/09/22 23:00 Temperature 98 F Pulse Rate Pulse Rate [Left P ulse Oximeter] 96 96 Respiratory Rate 20 20 [facility] 128/70 Pulse Oximetry 90 90 [facility]xygen Flow Rate 07/09/22 23:00 07/09/22 23:00 07/10/22 00:00 Temperature 97.6 F Pulse Rate 94 Pulse Rate [Left P ulse Oximeter] 96 Respiratory Rate 20 18 Blood Pressure [Ri ght Arm] 119/80 Pulse Oximetry 90 91 Oxygen Delivery Me thod Room Air Room Air Oxygen Flow Rate 07/10/22 01:00 07/10/22 02:00 07/10/22 03:00 Temperature 97.6 F 97.5 F L 97.6 F Pulse Rate Pulse Rate [Left P ulse Oximeter] 94 120 H 118 H Respiratory Rate 20 20 20 Blood Pressure [Ri ght Arm] 126/66 155/95 H 147/81 H Pulse Oximetry 90 94 92 Oxygen Delivery Me thod Room Air Room Air Room Air Oxygen Flow Rate 07/10/22 04:00 07/10/22 05:00 07/10/22 06:00 Temperature 97.5 F L 97.8 F Pulse Rate Pulse Rate [Left P ulse Oximeter] 106 H 128 H 108 H Respiratory Rate 20 20 20 Blood Pressure [Ri ght Arm] 130/76 148/101 H 136/84 Pulse Oximetry 94 92 96 Oxygen Delivery Me thod Room Air Room Air Room Air Oxygen Flow Rate 07/10/22 06:54 07/10/22 07:15 07/10/22 07:38 Temperature 98.7 F Pulse Rate 138 H Pulse Rate [Left P ulse Oximeter] 132 H 138 H Respiratory Rate 22 30 H Blood Pressure [Ri ght Arm] 141/88 H Pulse Oximetry 93 93 Oxygen Delivery Me thod Room Air Room Air Oxygen Flow Rate 07/10/22 07:40 07/10/22 07:42 07/10/22 07:42 Temperature 98.7 F Pulse Rate Pulse Rate [Left P ulse Oximeter] 138 H Respiratory Rate 30 H 30 H Blood Pressure [Ri ght Arm] 141/88 H Pulse Oximetry 89 89 89 Oxygen Delivery Me thod Room Air Room Air Oxygen Flow Rate 1 07/10/22 07:43 07/10/22 08:34 07/10/22 10:00 Temperature 98.3 F 98.2 F Pulse Rate Pulse Rate [Left P ulse Oximeter] 128 H Respiratory Rate 30 H 26 H 26 H Blood Pressure [Ri ght Arm] 137/83 118/75 Pulse Oximetry 94 90 Oxygen Delivery Me thod Room Air Room Air Oxygen Flow Rate 1 07/10/22 11:10 07/10/22 11:11 07/10/22 11:54 Temperature 98.4 F 98.1 F Pulse Rate Pulse Rate [Left P ulse Oximeter] 120 H 120 H 119 H Respiratory Rate 22 22 24 Blood Pressure [Ri ght Arm] 121/62 113/49 L Pulse Oximetry 90 91 Oxygen Delivery Me thod Room Air Room Air Oxygen Flow Rate 1 1 07/10/22 13:15 07/10/22 14:00 07/10/22 15:00 Temperature 98.0 F 97.6 F Pulse Rate Pulse Rate [Left P ulse Oximeter] 117 H 113 H Respiratory Rate 24 24 Blood Pressure [Ri ght Arm] 123/63 123/61 Pulse Oximetry 90 90 91 Oxygen Delivery Me thod Room Air Room Air Oxygen Flow Rate 07/10/22 15:00 07/10/22 15:00 Temperature 97.5 F L Pulse Rate Pulse Rate [Left P ulse Oximeter] 113 H Respiratory Rate 12 Blood Pressure [Ri ght Arm] 123/54 L Pulse Oximetry 91 91 Oxygen Delivery Me thod Room Air Room Air Oxygen Flow Rate Labs Labs: Laboratory Results - last 24 hr 07/06/22 07/09/22 07/09/22 18:20 06:18 15:21 WBC RBC Hgb Hct MCV MCH MCHC RDW Coeff of Manny Plt Count Neut % (Auto) Lymph % (Auto) [place] % (Auto) Eos % (Auto) Baso % (Auto) Neut # (Auto) Lymph # (Auto) [place] # (Auto) Eos # (Auto) Baso # (Auto) Abs Immat Gran (auto) D-Dimer Quant (PE/DVT) VBG pH VBG pCO2 VBG pO2 VBG HCO3 Sodium Potassium Chloride Carbon Dioxide BUN Creatinine Estimated Creat Clear Estimated GFR Glucose Lactate Calcium Ionized Calcium Michelle Phosphorus Magnesium Total Bilirubin AST ALT Alkaline Phosphatase Troponin I 0.03 C-Reactive Protein NT-Pro-B Natriuret Pep 458 H Total Protein Albumin Lipase Procalcitonin TSH Crossmatch ([facility]) See Detail 07/10/22 07/10/22 07/10/22 06:35 06:35 08:07 WBC 4.93 RBC 3.12 L Hgb 8.4 L Hct 27.8 L MCV 89 MCH 27 MCHC 30 L RDW Coeff of Manny 17.5 H Plt Count 208 Neut % (Auto) 72.7 H Lymph % (Auto) 15.4 L Bea[place] % (Auto) 8.7 Eos % (Auto) 2.4 Baso % (Auto) 0.6 Neut # (Auto) 3.60 Lymph # (Auto) 0.80 L [place] # (Auto) 0.40 Eos # (Auto) 0.12 Baso # (Auto) 0.03 Abs Immat Gran (auto) 0.01 D-Dimer Quant (PE/DVT) VBG pH 7.428 VBG pCO2 49 VBG pO2 52.2 H VBG HCO3 32 H Sodium 141 Potassium 4.3 Chloride 104 Carbon Dioxide 22 BUN 6 L Creatinine 0.5 Estimated Creat Clear 45.78 Estimated GFR 103 Glucose 133 H Lactate 1.4 Calcium 7.9 L Ionized Calcium Michelle 0.99 L Phosphorus 3.4 Magnesium 1.5 Total Bilirubin 1.4 AST 51 H ALT 23 Alkaline Phosphatase 52 Troponin I 0.03 C-Reactive Protein 1.7 H NT-Pro-B Natriuret Pep 766 H Total Protein 5.8 L Albumin 3.3 Lipase 29 Procalcitonin 0.05 TSH Crossmatch ([facility]) 07/10/22 07/10/22 07/10/22 08:07 08:07 13:12 WBC RBC Hgb Hct MCV MCH MCHC RDW Coeff of Manny Plt Count Neut % (Auto) Lymph % (Auto) [place] % (Auto) Eos % (Auto) Baso % (Auto) Neut # (Auto) Lymph # (Auto) [place] # (Auto) Eos # (Auto) Baso # (Auto) Abs Immat Gran (auto) D-Dimer Quant (PE/DVT) 0.72 H VBG pH VBG pCO2 VBG pO2 VBG HCO3 Sodium Potassium 2.8 L* Chloride Carbon Dioxide BUN Creatinine Estimated Creat Clear Estimated GFR Glucose Lactate Calcium Ionized Calcium Michelle Phosphorus Magnesium 1.3 L Total Bilirubin AST ALT Alkaline Phosphatase Troponin I C-Reactive Protein NT-Pro-B Natriuret Pep Total Protein Albumin Lipase Procalcitonin TSH 0.492 Crossmatch ([facility]) Imaging Echo: Radiologist's impression: Preliminary echo demonstrates preserved LV function, with volume overloaded state. ECG Attestation: I personally reviewed and interpreted this ECG as follows: Prior ECG tracings: not available for review Interpretation: Sinus tachycardia. No ischemic changes.
[2022-07-10] MEDS: LORazepam 2 MG/ML inj 1 MG IVP (17:16)
[2022-07-10 18:53] LABS: HCO3 VBG 35 mmol/L (21-28); PCO2 VBG 50 mmHG (40-50); pH VBG 7.446 (7.32-7.43)
--- NOTE | 2022-07-10 19:28 | P.IMPN_ITS ---
Progress Note: A&P Assessment and plan (1) Delirium tremens: Problem details: Scheduled phenobarbital and p.r.n. lorazepam Status: Acute (2) Alcohol intoxication: Problem details: IV fluids; thiamine, folic acid, MVM Status: Acute (3) GI bleed: Problem details: Bleeding has resolved. VTE prophylaxis with enoxaparin has been initiated. Monitor for bleeding returning. Status: Acute (4) Hypokalemia: Problem details: replace and trend. Status: Acute (5) Anemia: Problem details: Previously anemia of chronic disease, now ABLA anemia. 1 U PRBC tx 07/06/22. 1 U PRBC tx 07/07/22. 1 U PRBC tx 07/08/2022. Status: Acute (6) H/O opioid abuse: Problem details: On suboxone in outpatient setting. Continue to attempt oral Suboxone treatment inpatient Status: Acute (7) History of Leonardo-en-Y gastric bypass: Problem details: January 2013 Status: Acute (8) Unspecified essential hypertension: Problem details: trend/monitor Status: Acute (9) Major depressive disorder, recurrent severe without psychotic features: Problem details: continue home cymbalta dosing Status: Acute (10) Alcohol use disorder, severe, dependence: Problem details: Patient acknowledges drinking 1 pt of vodka daily up until this admission. Our social services manager is to give info on treatment centers. 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 Status: Acute (13) Coagulation disorder: Problem details: elevated INR; repeat coags, abd u/s demonstrated hepatic steatosis Status: Acute (14) Cirrhosis, alcoholic: Problem details: 07/07/2022: MELD 3.0 score of 20. MELD Na score 23. MELD score of 22. Status: Acute (15) Nicotine dependence due to vaping non-tobacco product: Problem details: Initiated Nicotrol inhaler device as needed in hospital. Status: Acute (16) Protein calorie malnutrition: Problem details: Offer food as able to swallow safely Status: Acute (17) Urinary retention: Problem details: Postvoid residual [address] for I&O monitoring until patient is no longer critically ill. Status: Acute (18) Decreased urine output: Problem details: Close monitoring Status: Acute (19) Leukopenia: Problem details: Impart related to alcohol-induced marrow suppression. Monitor Status: Acute (20) Volume overload state of heart: Problem details: Chest x-ray and echocardiogram suggests this. NT pro-BNP 760 07/10/2022. Monitor. Gentle diuresis. Status: Acute (21) Superficial venous thrombosis of arm: Problem details: Basilic vein thrombosis. Status: Acute Time Spent With Patient Total time spent: Continue in hospital. At this point appears to need tapering of sedation to allow her to wake up and cooperate with cares. Monitor for complications of alc ohol, fluid electrolyte problems, volume status, respiratory status, cardiac status, altered mental status. Total time spent today is 50 minutes in critical care evaluation management Subjective Date Seen: 07/11/22 Interval history: 66-year-old female seen in followup of hospitalization for abdominal pain and rectal bleeding. Because of her abdominal pain is felt to be related to longstanding alcohol abuse and complications of alcohol abuse. She has developed delirium tremens. She has required moderately high doses of sedation with phenobarb and lorazepam to control her agitation. Last night she had significant sinus tachycardia. This has been managed with metoprolol and sedation. She has not been able to awake to cooperate overnight. Not swallowing oral food or fluid. Exam Narrative: Exam Narrative: She is sleeping. She does minimally respond to touch and voice. She will not open her eyes however. She does move all 4 extremities spontaneously. Breathing is unlabored. No obvious facial asymmetry. Respirations are clear except for occasional basilar crackles. Cardiovascular: S1, S2, regular tachycardia. Abdomen is soft without tenderness or mass. Extremities with 1+ edema. Good peripheral pulses. Const: Vital Signs, click to edit/add: Vital Signs - 24 hr 07/09/22 20:00 07/09/22 21:00 07/09/22 22:00 Temperature 97.9 F 98.0 F 97.9 F Pulse Rate Pulse Rate [Left P ulse Oximeter] 91 92 92 Respiratory Rate 18 20 20 Blood Pressure [Ri ght Arm] 111/62 107/64 116/70 Pulse Oximetry 91 92 92 Oxygen Delivery Me thod Room Air Room Air Room Air Oxygen Flow Rate 07/09/22 23:00 07/09/22 23:00 07/09/22 23:00 Temperature 98 F Pulse Rate Pulse Rate [Left P ulse Oximeter] 96 96 Respiratory Rate 20 20 Blood Pressure [Ri ght Arm] 128/70 Pulse Oximetry 90 90 Oxygen Delivery Me thod Room Air Oxygen Flow Rate 07/09/22 23:00 07/09/22 23:00 07/10/22 00:00 Temperature 97.6 F Pulse Rate 94 Pulse Rate [Left P ulse Oximeter] 96 Respiratory Rate 20 18 Blood Pressure [Ri ght Arm] 119/80 Pulse Oximetry 90 91 Oxygen Delivery Me thod Room Air Room Air Oxygen Flow Rate 07/10/22 01:00 07/10/22 02:00 07/10/22 03:00 Temperature 97.6 F 97.5 F L 97.6 F Pulse Rate Pulse Rate [Left P ulse Oximeter] 94 120 H 118 H Respiratory Rate 20 20 20 Blood Pressure [Ri ght Arm] 126/66 155/95 H 147/81 H Pulse Oximetry 90 94 92 Oxygen Delivery Me thod Room Air Room Air Room Air Oxygen Flow Rate 07/10/22 04:00 07/10/22 05:00 07/10/22 06:00 Temperature 97.5 F L 97.8 F Pulse Rate Pulse Rate [Left P ulse Oximeter] 106 H 128 H 108 H Respiratory Rate 20 20 20 Blood Pressure [Ri ght Arm] 130/76 148/101 H 136/84 Pulse Oximetry 94 92 96 Oxygen Delivery Me thod Room Air Room Air Room Air Oxygen Flow Rate 07/10/22 06:54 07/10/22 07:15 07/10/22 07:38 Temperature 98.7 F Pulse Rate 138 H Pulse Rate [Left P ulse Oximeter] 132 H 138 H Respiratory Rate 22 30 H Blood Pressure [Ri ght Arm] 141/88 H Pulse Oximetry 93 93 Oxygen Delivery Me thod Room Air Room Air Oxygen Flow Rate 07/10/22 07:40 07/10/22 07:42 07/10/22 07:42 Temperature 98.7 F Pulse Rate Pulse Rate [Left P ulse Oximeter] 138 H Respiratory Rate 30 H 30 H Blood Pressure [Ri ght Arm] 141/88 H Pulse Oximetry 89 89 89 Oxygen Delivery Me thod Room Air Room Air Oxygen Flow Rate 1 07/10/22 07:43 07/10/22 08:34 07/10/22 10:00 Temperature 98.3 F 98.2 F Pulse Rate Pulse Rate [Left P ulse Oximeter] 128 H Respiratory Rate 30 H 26 H 26 H Blood Pressure [Ri ght Arm] 137/83 118/75 Pulse Oximetry 94 90 Oxygen Delivery Me thod Room Air Room Air Oxygen Flow Rate 1 07/10/22 11:10 07/10/22 11:11 07/10/22 11:54 Temperature 98.4 F 98.1 F Pulse Rate Pulse Rate [Left P ulse Oximeter] 120 H 120 H 119 H Respiratory Rate 22 22 24 Blood Pressure [Ri ght Arm] 121/62 113/49 L Pulse Oximetry 90 91 Oxygen Delivery Me thod Room Air Room Air Oxygen Flow Rate 1 1 07/10/22 13:15 07/10/22 14:00 07/10/22 15:00 Temperature 98.0 F 97.6 F Pulse Rate Pulse Rate [Left P ulse Oximeter] 117 H 113 H Respiratory Rate 24 24 Blood Pressure [Ri ght Arm] 123/63 123/61 Pulse Oximetry 90 90 91 Oxygen Delivery Me thod Room Air Room Air Oxygen Flow Rate 07/10/22 15:00 07/10/22 15:00 07/10/22 15:00 Temperature 97.5 F L 97.5 F L Pulse Rate Pulse Rate [Left P ulse Oximeter] 113 H 113 H Respiratory Rate 12 12 Blood Pressure [Ri ght Arm] 123/54 L 123/54 L Pulse Oximetry 91 91 91 Oxygen Delivery Me thod Room Air Room Air Room Air Oxygen Flow Rate 07/10/22 16:00 07/10/22 17:58 07/10/22 15:00 Temperature 98.4 F Pulse Rate 111 H Pulse Rate [Left P ulse Oximeter] 112 H 114 H Respiratory Rate 14 14 Blood Pressure [Ri ght Arm] 133/63 133/64 Pulse Oximetry 91 90 Oxygen Delivery Me thod Room Air Room Air Oxygen Flow Rate 07/10/22 19:06 07/10/22 19:10 Temperature 97.8 F 97.8 F Pulse Rate Pulse Rate [Left P ulse Oximeter] 120 H 120 H Respiratory Rate 18 18 Blood Pressure [Ri ght Arm] 115/60 115/60 Pulse Oximetry 100 100 Oxygen Delivery Me thod Nasal Cannula Nasal Cannula Oxygen Flow Rate 2 2 Documenting provider has reviewed patient's vital signs: yes Labs Labs: Laboratory Results - last 24 hr 07/06/22 07/10/22 07/10/22 18:20 06:35 06:35 WBC RBC Hgb Hct MCV MCH MCHC RDW Coeff of Manny Plt Count Neut % (Auto) Lymph % (Auto) Swift % (Auto) Eos % (Auto) Baso % (Auto) Neut # (Auto) Lymph # (Auto) [place] # (Auto) Eos # (Auto) Baso # (Auto) Abs Immat Gran (auto) D-Dimer Quant (PE/DVT) VBG pH 7.428 VBG pCO2 49 VBG pO2 52.2 H VBG HCO3 32 H Sodium 141 Potassium 4.3 Chloride 104 Carbon Dioxide 22 BUN 6 L Creatinine 0.5 Estimated Creat Clear 45.78 Estimated GFR 103 Glucose 133 H Lactate 1.4 Calcium 7.9 L Ionized Calcium Michelle 0.99 L Phosphorus 3.4 Magnesium 1.5 Total Bilirubin 1.4 AST 51 H ALT 23 Alkaline Phosphatase 52 Troponin I 0.03 C-Reactive Protein 1.7 H NT-Pro-B Natriuret Pep 766 H Total Protein 5.8 L Albumin 3.3 Lipase 29 Procalcitonin 0.05 TSH Crossmatch ([facility]) See Detail 07/10/22 07/10/22 07/10/22 08:07 08:07 08:07 WBC 4.93 RBC 3.12 L Hgb 8.4 L Hct 27.8 L MCV 89 MCH 27 MCHC 30 L RDW Coeff of Manny 17.5 H Plt Count 208 Neut % (Auto) 72.7 H Lymph % (Auto) 15.4 L Swift % (Auto) 8.7 Eos % (Auto) 2.4 Baso % (Auto) 0.6 Neut # (Auto) 3.60 Lymph # (Auto) 0.80 L Swift # (Auto) 0.40 Eos # (Auto) 0.12 Baso # (Auto) 0.03 Abs Immat Gran (auto) 0.01 D-Dimer Quant (PE/DVT) 0.72 H VBG pH VBG pCO2 VBG pO2 VBG HCO3 Sodium Potassium Chloride Carbon Dioxide BUN Creatinine Estimated Creat Clear Estimated GFR Glucose Lactate Calcium Ionized Calcium Michelle Phosphorus Magnesium Total Bilirubin AST ALT Alkaline Phosphatase Troponin I C-Reactive Protein NT-Pro-B Natriuret Pep Total Protein Albumin Lipase Procalcitonin TSH 0.492 Crossmatch ([facility]) 07/10/22 13:12 WBC RBC Hgb Hct MCV MCH MCHC RDW Coeff of Manny Plt Count Neut % (Auto) Lymph % (Auto) Swift % (Auto) Eos % (Auto) Baso % (Auto) Neut # (Auto) Lymph # (Auto) Swift # (Auto) Eos # (Auto) Baso # (Auto) Abs Immat Gran (auto) D-Dimer Quant (PE/DVT) VBG pH VBG pCO2 VBG pO2 VBG HCO3 Sodium Potassium 2.8 L* Chloride Carbon Dioxide BUN Creatinine Estimated Creat Clear Estimated GFR Glucose Lactate Calcium Ionized Calcium Michelle Phosphorus Magnesium 1.3 L Total Bilirubin AST ALT Alkaline Phosphatase Troponin I C-Reactive Protein NT-Pro-B Natriuret Pep Total Protein Albumin Lipase Procalcitonin TSH Crossmatch ([facility])
--- NOTE | 2022-07-10 19:56 | PC.NURSE ---
End of Shift ([id number]): Patient occasionally opens eyes when turned and repositioned but no meaningful communication. Afebrile. Tele showing sinus tach. CIWA 4-5. Scheduled Ativan x1. PICC placed in left upper arm this shift. Allen patent. No BM.
[2022-07-10] MEDS: PHENobarbitaL 260 MG in 0.9 % SODIUM CHLORIDE 100 ml 100 ML 204 MG IVPB (20:46)
[2022-07-10] MEDS: ENOXAPARIN 40 MG/0.4 ML INJ SUBCUT (20:47)
[2022-07-10] MEDS: METOPROLOL TARTRATE 1 MG/ML inj 5 MG IVP (23:29)
[2022-07-11] VITALS (24 sets, daily range): BP systolic 114–150; BP diastolic 61–88; PULSE 97–136; RESP 18–22; TEMP 36.1–37.2; O2SAT 90–96
[2022-07-11] MEDS: PHENobarbitaL 65 MG/ML inj 260 MG IVP (00:20)
[2022-07-11] MEDS: 5 % DEXTROSE IN LAC RINGER'S 1,000 ML 125 ML IV ×3 (00:22→17:47)
--- NOTE | 2022-07-11 04:37 | PC.NURSE ---
Pt remained in bed all shift. Pt agitated to arousal. Dr Aware. Phenobarb given. HR went to 167 over night. IV Metop ordered and given. HR came down to 100. Non verbal this night. Does open eyes. Allen in place and draining. Shamika area washed and cleaned overnight.
[2022-07-11] MEDS: LORazepam 2 MG/ML inj IVP ×2 (06:05→18:01)
[2022-07-11] MEDS: METOPROLOL TARTRATE 1 MG/ML inj 5 MG IVP ×4 (06:17→20:05)
[2022-07-11 06:52] LABS: HCO3 VBG 34 mmol/L (21-28); Ionized Calcium* 1.06 mmol/L (1.11-1.30); PCO2 VBG 50 mmHG (40-50); PO2 VBG 28.5 mmHG (25-47); pH VBG 7.433 (7.32-7.43)
[2022-07-11 07:08] LABS: Hemoglobin* 9.2 gm/dL (12.0-16.0); Mean Corpuscular HGB Conc 30 gm/dL (32-36); Mean Corpuscular Hemoglobin 27 pg (26-34); Mean Corpuscular Volume 90 fL (80-100); Platelet Count* 233 K/uL (140-440); Red Blood Count 3.44 m/uL (4.00-5.20); White Blood Count* 4.99 K/uL (4.50-11.00)
[2022-07-11 07:09] LABS: Slide Review Reflex No
[2022-07-11 07:20] LABS: INR 1.19 (0.91-1.10); Prothrombin Time 15.8 Seconds
[2022-07-11 07:24] LABS: Chloride* 100 mmol/L (96-114); Potassium* 3.3 mmol/L (3.6-5.1); Sodium* 141 mmol/L (135-149)
[2022-07-11 07:26] LABS: Creatinine* 0.4 mg/dL (0.5-1.5); Est. Creatinine Clearance* 45.78; Estimated Glomerular Filt Rate 109 ml/min; Lipase* 44 U/L (23-300)
[2022-07-11 07:27] LABS: Blood Urea Nitrogen* 4 mg/dL (7-30); Carbon Dioxide* 32 mmol/L (20-32); Glucose* 130 mg/dL (60-115)
[2022-07-11 07:28] LABS: Calcium* 7.9 mg/dL (8.4-10.6); Magnesium* 1.8 mg/dL (1.5-2.6)
[2022-07-11 07:30] LABS: C Reactive Protein* 2.7 mg/dL (0.5-1.0)
[2022-07-11 07:33] LABS: NT Pro B Type NatriureticPept* 988 PG/mL (0-125)
[2022-07-11 07:36] LABS: Troponin I* 0.02 ng/mL (0.01-0.04)
[2022-07-11] MEDS: FUROSEMIDE 10 MG/ML inj 20 MG IVP (09:24)
[2022-07-11] MEDS: POTASSIUM CHLORIDE 10 MEQ/100 ML PIGGYBACK 100 MEQ IVPB ×4 (09:24→13:01)
[2022-07-11] MEDS: PANTOPRAZOLE SODIUM 40 MG INJ IVP (09:25)
[2022-07-11] MEDS: BUPRENORPHINE-NALOX 8-2MG FILM 1 EACH SUBLINGUAL ×2 (09:25→20:35)
[2022-07-11] MEDS: NICOTINE 14 mg PATCH 1 PATCH TRANSDERMA (09:25)
[2022-07-11] MEDS: PHENobarbitaL 260 MG in 0.9 % SODIUM CHLORIDE 100 ml 100 ML 204 MG IVPB (09:25)
--- NOTE | 2022-07-11 18:25 | PC.NURSE ---
End of shift.? Pt was no communicating today. she will open eyes to touch. she has been sleeping most of the day. MD was in to see a few times. ? she got IV Ativan 1 time.? alarms are on. she did not try to get out of bed till 1744 and IV Ativan was given. ? SL was patent and PICC was also patent and dressing change was done. ? she is not safe to swallow and to take po meds, po cares where done. ? tele shows Sinus tachycardia. ? cont sao2 is on.? Sao2 above 89%? . ? Alejandro is patent .? she got IV lasix with good out put. Ciwa 5-12 ? ativsan given.? K IV given.? she is turn and repo q2 hours. teresa and po cares done. she was cold and heat turned up and blanket used. ?
[2022-07-11] MEDS: PHENobarbitaL 130 MG in 0.9 % SODIUM CHLORIDE 100 ml 100 ML 204 MG IVPB (20:35)
[2022-07-11] MEDS: ENOXAPARIN 40 MG/0.4 ML INJ SUBCUT (20:35)
[2022-07-12] VITALS (21 sets, daily range): BP systolic 113–174; BP diastolic 51–109; PULSE 94–128; RESP 18–20; TEMP 36.3–36.8; O2SAT 91–97
[2022-07-12] MEDS: 5 % DEXTROSE IN LAC RINGER'S 1,000 ML 125 ML IV (01:29)
[2022-07-12] MEDS: METOPROLOL TARTRATE 1 MG/ML inj 5 MG IVP ×3 (01:32→09:46)
[2022-07-12] MEDS: LORazepam 2 MG/ML inj IVP (02:58)
[2022-07-12 07:18] LABS: Lactate* 1.7 mmol/L (0.5-1.9)
[2022-07-12 07:22] LABS: Basophils Absolute Auto 0.05 K/uL (0.00-0.30); Basophils Percent Auto 0.8 % (0.0-3.0); Eosinophils Absolute Auto 0.12 K/uL (0.00-0.50); Eosinophils Percent Auto 1.9 % (0.0-7.0); Hematocrit 30.4 % (33.0-51.0); Hemoglobin* 9.2 gm/dL (12.0-16.0); Lymphocytes Percent Auto 12.7 % (20-44); Mean Corpuscular HGB Conc 30 gm/dL (32-36); Mean Corpuscular Hemoglobin 27 pg (26-34); Mean Corpuscular Volume 89 fL (80-100); Monocytes Percent Auto 12.7 % (0.0-11.0); Neutrophils Absolute Auto 4.55 K/uL (1.7-7.0); Neutrophils Percent Auto 71.9 % (42.0-72.0); Platelet Count* 243 K/uL (140-440); Red Blood Count 3.43 m/uL (4.00-5.20); White Blood Count* 6.32 K/uL (4.50-11.00)
[2022-07-12 07:26] LABS: Slide Review Reflex Yes
[2022-07-12 07:42] LABS: Chloride* 102 mmol/L (96-114); Sodium* 138 mmol/L (135-149)
[2022-07-12 07:43] LABS: Potassium* 3.6 mmol/L (3.6-5.1)
[2022-07-12 07:45] LABS: Creatinine* 0.5 mg/dL (0.5-1.5); Est. Creatinine Clearance* 45.78; Estimated Glomerular Filt Rate 103 ml/min
[2022-07-12 07:46] LABS: Blood Urea Nitrogen* 7 mg/dL (7-30); Calcium* 8.1 mg/dL (8.4-10.6); Carbon Dioxide* 32 mmol/L (20-32); Glucose* 135 mg/dL (60-115)
[2022-07-12 07:49] LABS: C Reactive Protein* 2.9 mg/dL (0.5-1.0)
[2022-07-12 08:34] LABS: Slide Review Acceptable Review (Acceptable)
[2022-07-12] MEDS: PANTOPRAZOLE SODIUM 40 MG INJ IVP (08:52)
[2022-07-12] MEDS: 5 % DEXTROSE IN LAC RINGER'S 1,000 ML 75 ML IV ×2 (08:52→21:01)
[2022-07-12] MEDS: NICOTINE 14 mg PATCH 1 PATCH TRANSDERMA (08:52)
[2022-07-12] MEDS: BUPRENORPHINE-NALOX 8-2MG FILM 1 EACH SUBLINGUAL ×2 (08:53→21:21)
--- NOTE | 2022-07-12 11:07 | P.IMPN_ITS ---
Progress Note: A&P Assessment and plan (1) Delirium tremens: Problem details: Scheduled phenobarbital and p.r.n. lorazepam. Hold phenobarb to see if she will wake up more Status: Acute (2) GI bleed: Problem details: Bleeding has resolved. VTE prophylaxis with enoxaparin has been initiated. Monitor for bleeding returning. Had a normal bowel movement today Status: Acute (3) Hypokalemia: Problem details: replace and trend. Status: Acute (4) Anemia: Problem details: Previously anemia of chronic disease, now ABLA anemia. 1 U PRBC tx 07/06/22. 1 U PRBC tx 07/07/22. 1 U PRBC tx 07/08/2022. Stable Status: Acute (5) H/O opioid abuse: Problem details: On suboxone in outpatient setting. Continue to attempt oral Suboxone treatment inpatient Status: Acute (6) History of Leonardo-en-Y gastric bypass: Problem details: January 2013 Status: Acute (7) Unspecified essential hypertension: Problem details: trend/monitor. Status: Acute (8) Major depressive disorder, recurrent severe without psychotic features: Problem details: continue home cymbalta dosing Status: Acute (9) Alcohol use disorder, severe, dependence: Problem details: Patient acknowledges drinking 1 pt of vodka daily up until this admission. Our social media strategist is to give info on treatment centers. 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 Status: Acute (12) Coagulation disorder: Problem details: elevated INR; repeat coags, abd u/s demonstrated hepatic steatosis Status: Acute (13) Cirrhosis, alcoholic: Problem details: 07/07/2022: MELD 3.0 score of 20. MELD Na score 23. MELD score of 22. Status: Acute (14) Nicotine dependence due to vaping non-tobacco product: Problem details: Initiated Nicotrol inhaler device as needed in hospital. Status: Acute (15) Protein calorie malnutrition: Problem details: Offer food as able to swallow safely Status: Acute (16) Urinary retention: Problem details: Postvoid residual [address] for I&O monitoring until patient is no longer critically ill. Status: Acute (17) Volume overload state of heart: Problem details: Chest x-ray and echocardiogram suggests this. NT pro-BNP 760 07/10/2022. Monitor. Gentle diuresis. Status: Acute (18) Superficial venous thrombosis of arm: Problem details: Basilic vein thrombosis. Status: Acute (19) Sinus tachycardia: Problem details: Secondary to DTs. Monitor for other illness that could cause sinus tachycardia. Increase metoprolol for rate control for now Status: Acute Plan Continue hospital monitoring and management of delirium tremens. Manage multiple comorbidities. Time Spent With Patient Total time spent: Total time spent today is 45 minutes, 40 minutes in coordination of care and discussing with other providers management of DTs Subjective Date Seen: 07/12/22 Interval history: 66-year-old female seen in followup of hospitalization for complications of alcohol abuse and delirium tremens. Patient continues to be difficult to arouse. She does have spontaneous random movements of all 4 extremities. She appears restless in bed. She does not open her eyes or respond to verbal communication or touch. Her vitals remained relatively normal except persistent sinus tachycardia. She is not awakened enough to take oral medications Exam Narrative: Exam Narrative: She is lying in bed with her eyes closed. She is fairly regularly moving spontaneously but non purposefully. She does not respond to voice or touch with eye opening. She does withdraw to pain specifically. Respirations are clear to auscultation except for an occasional basilar crackle. Cardiovascular: S1, S2, is regular tachycardia. Abdomen is soft without tenderness or mass. She has edema in both hands and feet. Right antecubital fossa has an area consistent with basilic vein DVT Const: Vital Signs, click to edit/add: Vital Signs - 24 hr 07/11/22 11:21 07/11/22 11:23 07/11/22 15:39 Temperature 97.4 F L 97.0 F L Pulse Rate Pulse Rate [Left P ulse Oximeter] 114 H 114 H 113 H Respiratory Rate 22 22 20 Blood Pressure [Ri ght Arm] 137/72 128/74 Pulse Oximetry 91 92 Oxygen Delivery Me thod Room Air Room Air Oxygen Flow Rate 0 0 07/11/22 15:43 07/11/22 15:43 07/11/22 15:43 Temperature Pulse Rate Pulse Rate [Left P ulse Oximeter] 113 H Respiratory Rate 20 20 Blood Pressure [Ri ght Arm] Pulse Oximetry 92 92 Oxygen Delivery Me thod Room Air Oxygen Flow Rate 0 07/11/22 16:11 07/11/22 19:11 07/11/22 19:58 Temperature 99 F Pulse Rate 109 H Pulse Rate [Left P ulse Oximeter] 133 H 133 H Respiratory Rate 18 18 Blood Pressure [Ri ght Arm] 150/88 H Pulse Oximetry 92 Oxygen Delivery Me thod Room Air Oxygen Flow Rate 07/11/22 21:52 07/11/22 22:50 07/11/22 22:51 Temperature 99 F 97.8 F Pulse Rate 114 H Pulse Rate [Left P ulse Oximeter] 133 H 109 H Respiratory Rate 18 18 Blood Pressure [Ri ght Arm] 150/88 H 138/74 Pulse Oximetry 92 90 Oxygen Delivery Me thod Room Air Nasal Cannula Oxygen Flow Rate 0 1 07/11/22 22:51 07/11/22 22:52 07/12/22 00:58 Temperature Pulse Rate Pulse Rate [Left P ulse Oximeter] 109 H Respiratory Rate 18 18 Blood Pressure [Ri ght Arm] Pulse Oximetry 90 90 Oxygen Delivery Me thod Nasal Cannula Oxygen Flow Rate 1 07/12/22 01:35 07/12/22 02:49 07/12/22 03:54 Temperature 97.8 F 97.4 F L Pulse Rate Pulse Rate [Left P ulse Oximeter] 94 107 H 107 H Respiratory Rate 18 18 18 Blood Pressure [Ri ght Arm] 138/74 152/85 H Pulse Oximetry 97 93 Oxygen Delivery Me thod Nasal Cannula Nasal Cannula Oxygen Flow Rate 1 1 07/12/22 05:44 07/12/22 07:00 07/12/22 07:00 Temperature 97.4 F L 98.3 F Pulse Rate Pulse Rate [Left P ulse Oximeter] 107 H 128 H Respiratory Rate 18 20 Blood Pressure [Ri ght Arm] 152/85 H 134/109 H Pulse Oximetry 93 93 97 Oxygen Delivery Me thod Nasal Cannula Nasal Cannula Oxygen Flow Rate 1 1 07/12/22 07:00 07/12/22 07:00 07/12/22 08:00 Temperature Pulse Rate 126 H Pulse Rate [Left P ulse Oximeter] 128 H Respiratory Rate 20 Blood Pressure [Ri ght Arm] Pulse Oximetry 97 Oxygen Delivery Me thod Room Air Oxygen Flow Rate Documenting provider has reviewed patient's vital signs: yes Labs Labs: Laboratory Results - last 24 hr 10/30/22 10/30/22 10/30/22 07:13 07:13 07:13 WBC 6.32 RBC 3.43 L Hgb 9.2 L Hct 30.4 L MCV 89 MCH 27 MCHC 30 L RDW Coeff of Manny 17.0 H Plt Count 243 Neut % (Auto) 71.9 Lymph % (Auto) 12.7 L [place] % (Auto) 12.7 H Eos % (Auto) 1.9 Baso % (Auto) 0.8 Neut # (Auto) 4.55 Lymph # (Auto) 0.80 L [place] # (Auto) 0.80 Eos # (Auto) 0.12 Baso # (Auto) 0.05 Abs Immat Gran (auto) 0.00 Diff Slide Review Acceptable Review Sodium 138 Potassium 3.6 Chloride 102 Carbon Dioxide 32 BUN 7 Creatinine 0.5 Estimated Creat Clear 45.78 Estimated GFR 103 Glucose 135 H Lactate 1.7 Calcium 8.1 L C-Reactive Protein 2.9 H
[2022-07-12] MEDS: SODIUM CHLORIDE 0.9 % (FLUSH) 10 ML SYRINGE 5 ML IVF ×3 (12:14→21:08)
[2022-07-12] MEDS: METOPROLOL TARTRATE 1 MG/ML inj 10 MG IVP ×3 (12:14→20:56)
--- NOTE | 2022-07-12 18:48 | PC.NURSE ---
End of Shift: Patient did not open eyes this shift to voice or touch. Moves all extremities independently but unable to help when turning and repositioning. Afebrile. Tele showing sinus tach up to the 120s. PRN Metoprolol 5 mg given x1. MD in to see patient and MD increased dose, 10 mg given per MD at 1215. Heart rate did decrease in to the 90s for a few hours. O2 sats above 90% on room air. Unable to take in anything orally this shift. Allen with 350 mL out on days. Updated MD. Frequent turn and reposition and oral cares. CIWA 5 this shift and no PRN Ativan given.
[2022-07-12] MEDS: ENOXAPARIN 40 MG/0.4 ML INJ SUBCUT (20:55)
[2022-07-13] VITALS (19 sets, daily range): BP systolic 134–180; BP diastolic 84–109; PULSE 104–122; RESP 18–20; TEMP 35.9–36.9; O2SAT 91–97
[2022-07-13] MEDS: LORazepam 2 MG/ML inj IVP (03:11)
[2022-07-13] MEDS: METOPROLOL TARTRATE 1 MG/ML inj 10 MG IVP ×4 (04:07→18:34)
--- NOTE | 2022-07-13 04:14 | PC.NURSE ---
Pt was unresponsive until 0300. She then became very restless in bed and began kicking her legs and rolling from side to side. 2 mg Ativan was given. Pt snores loudly while asleep. Pt is unable to speak communicate. Does not respond to verbal stimulation. Pt was suctioned several times this evening to clear mouth. HR sinus Tach and given 10 mg Metop PRN.
[2022-07-13 08:01] LABS: Basophils Absolute Auto 0.04 K/uL (0.00-0.30); Basophils Percent Auto 0.6 % (0.0-3.0); Eosinophils Absolute Auto 0.12 K/uL (0.00-0.50); Eosinophils Percent Auto 1.7 % (0.0-7.0); Hematocrit 30.4 % (33.0-51.0); Hemoglobin* 9.1 gm/dL (12.0-16.0); Immature Granulocytes Abs Auto 0.01 K/uL (0.00-0.30); Lymphocytes Percent Auto 10.1 % (20-44); Mean Corpuscular HGB Conc 30 gm/dL (32-36); Mean Corpuscular Hemoglobin 27 pg (26-34); Mean Corpuscular Volume 89 fL (80-100); Monocytes Percent Auto 12.1 % (0.0-11.0); Neutrophils Percent Auto 75.4 % (42.0-72.0); Platelet Count* 236 K/uL (140-440); RDW Coefficient of Variation % 16.9 % (11.5-15.5); Red Blood Count 3.42 m/uL (4.00-5.20); White Blood Count* 7.05 K/uL (4.50-11.00)
[2022-07-13 08:12] LABS: Chloride* 102 mmol/L (96-114)
[2022-07-13 08:13] LABS: Potassium* 3.6 mmol/L (3.6-5.1); Sodium* 137 mmol/L (135-149)
[2022-07-13 08:15] LABS: Creatinine* 0.5 mg/dL (0.5-1.5); Est. Creatinine Clearance* 45.78; Estimated Glomerular Filt Rate 103 ml/min
[2022-07-13 08:16] LABS: Blood Urea Nitrogen* 8 mg/dL (7-30); Carbon Dioxide* 30 mmol/L (20-32); Glucose* 123 mg/dL (60-115)
[2022-07-13 08:17] LABS: Calcium* 8.3 mg/dL (8.4-10.6)
--- NOTE | 2022-07-13 08:17 | PM.IMPN1 ---
Progress Note: A&P Assessment and plan (1) Delirium tremens: Problem details: Scheduled phenobarbital and p.r.n. lorazepam. Hold phenobarb to see if she will wake up more Status: Acute (2) GI bleed: Problem details: Bleeding has resolved. VTE prophylaxis with enoxaparin has been initiated. Monitor for bleeding returning. Status: Acute (3) Protein calorie malnutrition: Problem details: Offer food as able to swallow safely. Status: Acute (4) Hypokalemia: Problem details: replace and trend. Status: Acute (5) Anemia: Problem details: Previously anemia of chronic disease, now ABLA anemia. 1 U PRBC tx 07/06/22. 1 U PRBC tx 07/07/22. 1 U PRBC tx 07/08/2022. Stable Status: Acute (6) H/O opioid abuse: Problem details: On suboxone in outpatient setting. Continue to attempt oral Suboxone treatment inpatient Status: Acute (7) History of Leonardo-en-Y gastric bypass: Problem details: January 2013 Status: Acute (8) Unspecified essential hypertension: Problem details: trend/monitor. Status: Acute (9) Major depressive disorder, recurrent severe without psychotic features: Problem details: continue home cymbalta dosing Status: Acute (10) Alcohol use disorder, severe, dependence: Problem details: Patient acknowledges drinking 1 pt of vodka daily up until this admission. Our social media marketing specialist is to give info on treatment centers. 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 Status: Acute (13) Cirrhosis, alcoholic: Problem details: 07/07/2022: MELD 3.0 score of 20. MELD Na score 23. MELD score of 22. Status: Acute (14) Nicotine dependence due to vaping non-tobacco product: Problem details: Initiated Nicotrol inhaler device as needed in hospital. Status: Acute (15) Urinary retention: Problem details: Postvoid residual [address] for I&O monitoring until patient is no longer critically ill. Status: Acute (16) Volume overload state of heart: Problem details: Chest x-ray and echocardiogram suggests this. NT pro-BNP 760 07/10/2022. Monitor. Gentle diuresis. Status: Acute (17) Superficial venous thrombosis of arm: Problem details: Basilic vein thrombosis. Status: Acute (18) Sinus tachycardia: Problem details: Secondary to DTs. Monitor for other illness that could cause sinus tachycardia. Increase metoprolol for rate control for now Status: Acute Plan Continue in hospital for close monitoring of mental status, vital signs, and management of delirium tremens. Time Spent With Patient Total time spent: Total time spent today is 40 minutes, 35 minutes in coordination of care and discussing with other providers ongoing evaluation and management of delirium tremens Subjective Date Seen: 07/13/22 Interval history: 66-year-old female seen in followup of delirium tremens. Yesterday she required less sedation. She still not waking up. She is more restless in bed however. Heart rate control is improved with metoprolol at 10 mg IV. Exam Narrative: Exam Narrative: She is sleeping and does not open her eyes or verbally respond to voice or touch. She is relatively continuously moving in bed when I am examining her. She keeps her eyes closed and resists attempts to open them. When I do open her eyes they appear normal. No obvious facial asymmetry. Small oropharynx. Neck is supple without mass or adenopathy. Respirations with upper airway wheezing. Fairly good air exchange. Cardiovascular: S1-S2 regular tachycardia. Abdomen is soft without tenderness or mass. 2+ edema in her upper extremities. Trace edema in her lower extremities. She moves all 4 extremities. Const: Vital Signs, click to edit/add: Vital Signs - 24 hr 07/12/22 11:00 07/12/22 10:00 07/12/22 13:26 Temperature 98.3 F 98.3 F Pulse Rate Pulse Rate [Left P ulse Oximeter] 122 H 122 H 106 H Respiratory Rate 18 18 Blood Pressure [Le ft Arm] 172/85 H 174/85 H 113/51 L Blood Pressure [Ri ght Arm] Pulse Oximetry 93 93 Oxygen Delivery Me thod Room Air Room Air Oxygen Flow Rate 07/12/22 12:00 07/12/22 15:00 07/12/22 15:00 Temperature Pulse Rate Pulse Rate [Left P ulse Oximeter] 106 H Respiratory Rate 18 Blood Pressure [Le ft Arm] Blood Pressure [Ri ght Arm] Pulse Oximetry 92 92 Oxygen Delivery Me thod Room Air Oxygen Flow Rate 07/12/22 15:00 07/12/22 15:00 07/12/22 15:00 Temperature 97.5 F L 97.5 F L Pulse Rate 97 Pulse Rate [Left P ulse Oximeter] 96 96 Respiratory Rate 18 18 Blood Pressure [Le ft Arm] 117/81 117/81 Blood Pressure [Ri ght Arm] Pulse Oximetry 93 93 Oxygen Delivery Me thod Room Air Room Air Oxygen Flow Rate 07/12/22 16:00 07/12/22 17:16 07/12/22 19:25 Temperature 97.5 F L Pulse Rate Pulse Rate [Left P ulse Oximeter] 96 127 H 127 H Respiratory Rate 18 18 Blood Pressure [Le ft Arm] 148/94 H 148/94 H Blood Pressure [Ri ght Arm] 134/109 H Pulse Oximetry 96 96 Oxygen Delivery Me thod Room Air Room Air Oxygen Flow Rate 1 07/12/22 19:27 07/12/22 21:04 07/12/22 22:20 Temperature 97.8 F 97.8 F Pulse Rate Pulse Rate [Left P ulse Oximeter] 114 H 114 H 115 H Respiratory Rate 18 18 20 Blood Pressure [Le ft Arm] 151/78 H 158/82 H Blood Pressure [Ri ght Arm] Pulse Oximetry 91 93 Oxygen Delivery Me thod Room Air Room Air Oxygen Flow Rate 07/12/22 22:22 07/12/22 22:23 07/12/22 22:23 Temperature 97.8 F Pulse Rate Pulse Rate [Left P ulse Oximeter] 115 H Respiratory Rate 20 20 Blood Pressure [Le ft Arm] 158/82 H Blood Pressure [Ri ght Arm] 134/109 H Pulse Oximetry 93 93 93 Oxygen Delivery Me thod Nasal Cannula Nasal Cannula Oxygen Flow Rate 1 1 07/12/22 22:26 07/13/22 01:00 07/13/22 02:55 Temperature 97.5 F L Pulse Rate 114 H Pulse Rate [Left P ulse Oximeter] 115 H 105 H Respiratory Rate 20 18 Blood Pressure [Le ft Arm] 140/84 H Blood Pressure [Ri ght Arm] Pulse Oximetry 97 Oxygen Delivery Me thod Nasal Cannula Oxygen Flow Rate 1 07/13/22 02:56 07/13/22 03:12 07/13/22 05:21 Temperature 97.5 F L 97.5 F L Pulse Rate Pulse Rate [Left P ulse Oximeter] 105 H 105 H 105 H Respiratory Rate 18 18 18 Blood Pressure [Le ft Arm] 140/84 H 140/84 H Blood Pressure [Ri ght Arm] 134/109 H 134/109 H Pulse Oximetry 97 97 Oxygen Delivery Me thod Nasal Cannula Nasal Cannula Oxygen Flow Rate 1 1 07/13/22 07:24 07/13/22 08:06 07/13/22 08:07 Temperature 97.8 F 97.8 F Pulse Rate Pulse Rate [Left P ulse Oximeter] 115 H 115 H Respiratory Rate 20 20 Blood Pressure [Le ft Arm] 167/95 H 167/95 H Blood Pressure [Ri ght Arm] Pulse Oximetry 91 91 91 Oxygen Delivery Me thod Nasal Cannula Nasal Cannula Oxygen Flow Rate 2 2 07/13/22 08:07 Temperature Pulse Rate Pulse Rate [Left P ulse Oximeter] Respiratory Rate 20 Blood Pressure [Le ft Arm] Blood Pressure [Ri ght Arm] Pulse Oximetry 91 Oxygen Delivery Me thod Nasal Cannula Oxygen Flow Rate 2 Labs Labs: Laboratory Results - last 24 hr 07/12/22 07:13 Diff Slide Review Acceptable Review
[2022-07-13 08:20] LABS: C Reactive Protein* 3.2 mg/dL (0.5-1.0)
[2022-07-13 08:33] LABS: Slide Review Reflex Yes
[2022-07-13 08:34] LABS: Slide Review Acceptable Review (Acceptable)
[2022-07-13] MEDS: FUROSEMIDE 10 MG/ML inj IVP (08:52)
[2022-07-13] MEDS: SODIUM CHLORIDE 0.9 % (FLUSH) 10 ML SYRINGE 5 ML IVF (08:53)
[2022-07-13] MEDS: PANTOPRAZOLE SODIUM 40 MG INJ IVP (08:53)
[2022-07-13] MEDS: POTASSIUM CHLORIDE 10 MEQ/100 ML PIGGYBACK 100 MEQ IVPB (08:53)
[2022-07-13] MEDS: NICOTINE 14 mg PATCH 1 PATCH TRANSDERMA (09:13)
[2022-07-13] MEDS: BUPRENORPHINE-NALOX 8-2MG FILM 1 EACH SUBLINGUAL ×2 (09:35→20:58)
[2022-07-13] MEDS: THIAMINE 250 MG in 0.9 % SODIUM CHLORIDE 100 ml 100 ML 102.5 MG IVPB ×3 (10:03→20:57)
[2022-07-13] MEDS: 5 % DEXTROSE IN LAC RINGER'S 1,000 ML 75 ML IV (11:10)
--- NOTE | 2022-07-13 11:57 | NUTR.NU ---
RDN with nutrition screen, little to no intake since admit 07/07/22. Patient admitted for GI bleed and abdominal pain, currently with alcohol withdrawal. Patient is experiencing delirium tremens and is not responding. Current diet is Clear liquids - x2 intakes recorded since admit of 50% x1 and 75% x1. RDN ordered Ensure Clear TID 07/09/22, however no supplement intakes recorded due to patient's current status. RDN recommends initiation of enteral nutrition if patient's intake and diet does not advance within the next 48 hours. RDN will continue to monitor and follow-up prn.
--- NOTE | 2022-07-13 12:35 | PC.SOCIAL ---
Attempted to meet with pt. today to get consent to contact her daughter Avtar and discuss ETOH use and most likely need for SNF at discharge. Unable to waken pt. at this time.
--- NOTE | 2022-07-13 17:06 | PC.NURSE ---
Shift Summary: Patient lethargic throughout shift, per MD hold off on ativan today. CIWAs not >9 and not requiring ativan. In morning patient had beads of sweat on forehead, afebrile, resolved around noon. Able to briefly open eyes to name, treis to sit up in bed from time to time but falls back asleep immediately. Right forearm/hand continue to have edema, elevated on pillow. T&R q2h in bed, patient frequently removed pillows from under her to try to lie flat. HR >100 throughout shift however has improved throughout day. Given PRN metoprolol x2, HR at this time is 100.
[2022-07-13] MEDS: ENOXAPARIN 40 MG/0.4 ML INJ SUBCUT (20:58)
[2022-07-14] VITALS (13 sets, daily range): BP systolic 98–186; BP diastolic 57–115; PULSE 89–128; RESP 15–26; TEMP 36.1–37.1; O2SAT 90–98
[2022-07-14] MEDS: 5 % DEXTROSE/0.9% SOD CHLORIDE 1,000 ML 75 ML IV (01:21)
[2022-07-14] MEDS: METOPROLOL TARTRATE 1 MG/ML inj 10 MG IVP ×4 (01:21→15:08)
[2022-07-14] MEDS: LORazepam 2 MG/ML inj IVP ×3 (01:22→05:31)
[2022-07-14 05:33] LABS: Basophils Absolute Auto 0.06 K/uL (0.00-0.30); Basophils Percent Auto 0.8 % (0.0-3.0); Eosinophils Absolute Auto 0.09 K/uL (0.00-0.50); Eosinophils Percent Auto 1.2 % (0.0-7.0); Hematocrit 29.6 % (33.0-51.0); Immature Granulocytes Abs Auto 0.04 K/uL (0.00-0.30); Lymphocytes Percent Auto 13.1 % (20-44); Mean Corpuscular HGB Conc 30 gm/dL (32-36); Mean Corpuscular Hemoglobin 27 pg (26-34); Mean Corpuscular Volume 88 fL (80-100); Neutrophils Absolute Auto 5.08 K/uL (1.7-7.0); Neutrophils Percent Auto 70.3 % (42.0-72.0); Platelet Count* 265 K/uL (140-440); RDW Coefficient of Variation % 16.8 % (11.5-15.5); Red Blood Count 3.37 m/uL (4.00-5.20); Slide Review Reflex No; White Blood Count* 7.23 K/uL (4.50-11.00)
--- NOTE | 2022-07-14 05:45 | PC.NURSE ---
Shift note 19-: Pt remains only responsive to shake/light pain, nonverbal, moves all extremities equally. Pt more restless w/ tachycardia @ 0100, attempted repositioning/pad change/mouth care w/o success so 1mg Ativan and Metoprolol given w/ good success. Pt again became extremely restless w/ tachycardia @ 0415, again attempted repositioning/pad change/mouth care w/o success so 1mg of Ativan given w/o any success so another 1mg along w/ Metoprolol repeated 45 minutes w/ good success achieved. Allen patent, continues w/ frequent bouts of liquid, incontinent stools. Tele SR/ST 90-120's.
[2022-07-14 05:47] LABS: Chloride* 102 mmol/L (96-114); Potassium* 3.3 mmol/L (3.6-5.1); Sodium* 139 mmol/L (135-149)
[2022-07-14 05:50] LABS: Blood Urea Nitrogen* 7 mg/dL (7-30); Carbon Dioxide* 28 mmol/L (20-32); Creatinine* 0.4 mg/dL (0.5-1.5); Est. Creatinine Clearance* 45.78; Estimated Glomerular Filt Rate 109 ml/min; Glucose* 129 mg/dL (60-115)
[2022-07-14 05:51] LABS: Calcium* 8.2 mg/dL (8.4-10.6)
[2022-07-14 05:53] LABS: C Reactive Protein* 4.3 mg/dL (0.5-1.0)
--- NOTE | 2022-07-14 07:05 | CRLHL7_ITS ---
For Patients: As a result of the Century Cures Act, medical imaging exams and procedure reports are released immediately into your electronic medical record. You may view this report before your referring provider. If you have questions, please contact your health care provider. INDICATION: Altered mental status COMPARISON: April 30, 2018 TECHNIQUE: CT examination of the head was performed as axial sections without intravenous contrast. Images were obtained from the vertex of the skull through the skull base. Please note that all CT scans at this facility use dose modulation, iterative reconstruction, and/or weight-based dosing when appropriate to reduce radiation dose to as low as reasonably achievable. FINDINGS: Substantially limited by motion without obvious acute intracranial finding. IMPRESSION: Substantial limited by motion without obvious acute intracranial finding. Please note that all CT scans at this facility use dose modulation, iterative reconstruction, and/or weight-based dosing when appropriate to reduce radiation dose to as low as reasonably achievable. Dictated by Caleb Lezama MD @ 07/14/2022 8:40:41 AM (Electronically Signed)
[2022-07-14] MEDS: THIAMINE 250 MG in 0.9 % SODIUM CHLORIDE 100 ml 100 ML 102.5 MG IVPB ×3 (08:38→20:53)
[2022-07-14] MEDS: PANTOPRAZOLE SODIUM 40 MG INJ IVP (08:38)
[2022-07-14] MEDS: SODIUM CHLORIDE 0.9 % (FLUSH) 10 ML SYRINGE 5 ML IVF ×4 (08:40→20:54)
[2022-07-14] MEDS: NICOTINE 14 mg PATCH 1 PATCH TRANSDERMA (08:40)
[2022-07-14] MEDS: BUPRENORPHINE-NALOX 8-2MG FILM 1 EACH SUBLINGUAL ×2 (09:47→20:53)
--- NOTE | 2022-07-14 10:51 | CRLHL7_ITS ---
For Patients: As a result of the Century Cures Act, medical imaging exams and procedure reports are released immediately into your electronic medical record. You may view this report before your referring provider. If you have questions, please contact your health care provider. INDICATION: tachypnea TECHNIQUE: Chest 1 view COMPARISON: 07/10/2022 FINDINGS: PICC line unchanged in position. Cardiomegaly and prominence of the central pulmonary vessels. Similar thickening of the interlobular septa bilaterally without pneumothorax. No drainable pleural effusion. Overlying soft tissue artifact regarding the right lung base. IMPRESSION: Similar thickening of the interlobular septa bilaterally may signify bronchiolitis/chronic bronchitis. Dictated by Prosper Lyle MD @ 07/14/2022 11:45:33 AM (Electronically Signed)
[2022-07-14] MEDS: 5 % DEX/0.9 SOD CHL+KCL 20 mEq 1,000 ML 75 ML IV (11:24)
--- NOTE | 2022-07-14 11:27 | PM.IMPN1 ---
Progress Note: A&P Assessment and plan (1) Delirium tremens: Problem details: Discontinued phenobarbital and continue p.r.n. lorazepam. Try to taper her off sedation to allow her brain to wake up more Status: Acute (2) GI bleed: Problem details: Bleeding has resolved. VTE prophylaxis with enoxaparin has been initiated. Monitor for bleeding returning. Having nonbloody diarrhea Status: Acute (3) Protein calorie malnutrition: Problem details: Offer food as able to swallow safely. Status: Acute (4) Hypokalemia: Problem details: replace and trend. Status: Acute (5) Anemia: Problem details: Previously anemia of chronic disease, now ABLA anemia. 1 U PRBC tx 07/06/22. 1 U PRBC tx 07/07/22. 1 U PRBC tx 07/08/2022. Stable Status: Acute (6) H/O opioid abuse: Problem details: On suboxone in outpatient setting. Continue to attempt oral Suboxone treatment inpatient Status: Acute (7) History of Leonardo-en-Y gastric bypass: Problem details: January 2013 Status: Acute (8) Unspecified essential hypertension: Problem details: trend/monitor. Status: Acute (9) Major depressive disorder, recurrent severe without psychotic features: Problem details: continue home cymbalta dosing Status: Acute (10) Alcohol use disorder, severe, dependence: Problem details: Patient acknowledges drinking 1 pt of vodka daily up until this admission. Our vp digital marketing social media and crm is to give info on treatment centers. 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 Status: Acute (13) Cirrhosis, alcoholic: Problem details: 07/07/2022: MELD 3.0 score of 20. MELD Na score 23. MELD score of 22. Status: Acute (14) Nicotine dependence due to vaping non-tobacco product: Problem details: Initiated Nicotrol inhaler device as needed in hospital. Status: Acute (15) Urinary retention: Problem details: Postvoid residual [address] for I&O monitoring until patient is no longer critically ill. Status: Acute (16) Volume overload state of heart: Problem details: Chest x-ray and echocardiogram suggests this. NT pro-BNP 760 07/10/2022. Monitor volume status closely. Gentle diuresis. Status: Acute (17) Superficial venous thrombosis of arm: Problem details: Basilic vein thrombosis. Status: Acute (18) Sinus tachycardia: Problem details: Secondary to DTs. Monitor for other illness that could cause sinus tachycardia. Increase metoprolol for rate control for now Status: Acute (19) Hypertension: Problem details: Continue to monitor. Not taking oral medication yet. Hold on IV antihypertensives pending resolution of delirium tremens Status: Acute Plan Continue in hospital for ongoing management of her metabolic encephalopathy due to delirium tremens. Continues to need IV medications in IV fluids and 2-1 nursing to manage her DTs. Attempt to wean off of sedation and provide safety for her agitation so she can wake up and cooperate with cares and begin to eat. Time Spent With Patient Total time spent: Total time spent today is 40 minutes, 30 minutes in coordination of care and discussing with other providers management of metabolic encephalopathy and delirium tremens. Subjective Date Seen: 07/14/22 Interval history: 66-year-old female seen in followup of metabolic encephalopathy, delirium tremens and complications of alcohol abuse. Patient continues to be restless but not arousing to open her eyes. She is often moving around in bed with somewhat nonpurposeful movement. She is not open her eyes or awakened to the point where she can cooperate with cares. Exam Narrative: Exam Narrative: She is lying in bed. Occasionally moving both arms and legs her head and trunk. These appear to be nonpurposeful movements. Other time she appears to be lying more quietly. She does have increased activity when I attempt to arouse her or examine her or touch her. She resists eye opening. No obvious facial asymmetry. Respirations with occasional wheezing which appears to be upper airway. A occasional basilar crackle is also noted. Cardiovascular: S1, S2, regular tachycardia. Abdomen is soft without obvious tenderness or mass. She does not reliably withdraw to pain, pinching fingers or toes. Trace edema in her upper extremities. Const: Vital Signs, click to edit/add: Vital Signs - 24 hr 07/13/22 13:07 07/13/22 14:00 07/13/22 15:00 Temperature 98.3 F 97.7 F Pulse Rate Pulse Rate [Left P ulse Oximeter] 109 H 111 H 113 H Respiratory Rate 20 20 Blood Pressure [Le ft Arm] 153/86 H Pulse Oximetry 97 95 Oxygen Delivery Me thod Nasal Cannula Nasal Cannula Oxygen Flow Rate 2 2 07/13/22 15:00 07/13/22 15:00 07/13/22 15:14 Temperature Pulse Rate 104 H Pulse Rate [Left P ulse Oximeter] Respiratory Rate 20 Blood Pressure [Le ft Arm] Pulse Oximetry 95 95 Oxygen Delivery Me thod Nasal Cannula Oxygen Flow Rate 2 07/13/22 18:32 07/13/22 20:45 07/13/22 22:50 Temperature 98.5 F 97.2 F L 96.6 F L Pulse Rate Pulse Rate [Left P ulse Oximeter] 122 H 111 H 112 H Respiratory Rate 20 18 18 Blood Pressure [Le ft Arm] 154/90 H 161/88 H 180/105 H Pulse Oximetry 94 92 92 Oxygen Delivery Me thod Nasal Cannula Nasal Cannula Nasal Cannula Oxygen Flow Rate 1.5 1.5 1.5 07/13/22 22:50 07/13/22 22:50 07/14/22 01:20 Temperature 97.5 F L Pulse Rate Pulse Rate [Left P ulse Oximeter] 128 H Respiratory Rate 18 20 Blood Pressure [Le ft Arm] 186/115 H Pulse Oximetry 92 92 93 Oxygen Delivery Me thod Nasal Cannula Nasal Cannula Oxygen Flow Rate 1.5 1.5 07/14/22 01:15 07/13/22 23:00 07/14/22 04:00 Temperature 97.4 F L Pulse Rate 122 H Pulse Rate [Left P ulse Oximeter] 112 H 92 Respiratory Rate 18 16 Blood Pressure [Le ft Arm] 123/64 Pulse Oximetry 98 Oxygen Delivery Me thod Nasal Cannula Oxygen Flow Rate 1 07/14/22 04:44 07/14/22 05:28 07/14/22 07:05 Temperature 98.0 F 97.4 F L Pulse Rate 107 H Pulse Rate [Left P ulse Oximeter] 120 H 120 H Respiratory Rate 20 20 Blood Pressure [Le ft Arm] 166/93 H 166/93 H Pulse Oximetry 92 92 Oxygen Delivery Me thod Room Air Nasal Cannula Oxygen Flow Rate 1 1 07/14/22 07:00 07/14/22 07:00 07/14/22 07:00 Temperature 98.4 F Pulse Rate Pulse Rate [Left P ulse Oximeter] 113 H Respiratory Rate 20 20 Blood Pressure [Le ft Arm] 170/108 H Pulse Oximetry 90 90 92 Oxygen Delivery Me thod Nasal Cannula Nasal Cannula Oxygen Flow Rate 1 1 07/14/22 07:00 07/14/22 10:00 Temperature Pulse Rate Pulse Rate [Left P ulse Oximeter] 113 H 119 H Respiratory Rate 20 20 Blood Pressure [Le ft Arm] 181/99 H Pulse Oximetry 95 Oxygen Delivery Me thod Nasal Cannula Oxygen Flow Rate 1 Labs Labs: Laboratory Results - last 24 hr 07/14/22 07/14/22 05:20 05:20 WBC 7.23 RBC 3.37 L Hgb 9.0 L Hct 29.6 L MCV 88 MCH 27 MCHC 30 L RDW Coeff of Manny 16.8 H Plt Count 265 Neut % (Auto) 70.3 Lymph % (Auto) 13.1 L Sawyer % (Auto) 14.0 H Eos % (Auto) 1.2 Baso % (Auto) 0.8 Neut # (Auto) 5.08 Lymph # (Auto) 0.90 Sawyer # (Auto) 1.00 H Eos # (Auto) 0.09 Baso # (Auto) 0.06 Abs Immat Gran (auto) 0.04 Sodium 139 Potassium 3.3 L Chloride 102 Carbon Dioxide 28 BUN 7 Creatinine 0.4 L Estimated Creat Clear 45.78 Estimated GFR 109 Glucose 129 H Calcium 8.2 L C-Reactive Protein 4.3 H
[2022-07-14 11:41] LABS: pH ABG 7.49 (7.35-7.45)
[2022-07-14 11:42] LABS: ABG PCO2 37 mmHG (35-45); Base Excess ABG 4.6 mmol/L (-3.0-3.0); HCO3 ABG 28 mmol/L (21-28); Oxygen Saturation ABG 94 % (92-100); PO2 ABG 64.3 mmHG (80-105); TCO2 ABG 26 mmol/l (21-30)
[2022-07-14] MEDS: POTASSIUM CHLORIDE 10 MEQ/100 ML PIGGYBACK 100 MEQ IVPB ×3 (11:48→13:59)
[2022-07-14] MEDS: IPRAT-ALBUT 0.5-2.5 MG/3 ML NEB 1 NEB IH ×2 (12:51→20:55)
--- NOTE | 2022-07-14 16:03 | PC.NURSE ---
Addendum entered by Georgie Cheung RN 07/14/22 19:31: PATIENT REPOSITIONED [id number] DUE TO RESTLESSNESS AND INCREASED AGITATION, THROWING LEGS OVER BED ABLE TO REPOSITION PATIENT, PATIENT DOES NOT RESPOND OR FOLLOW COMMANDS, ORAL CARES/BED BATH/DISTRACTION/REPOSITIONING ALL USED TO HELP KEEP PATIENT SAFE. Original Note: PATIENT NON-VERBAL AT THIS TIME, ONLY RESPONDING TO PAINFUL STIMULI AND WILL AROUSE TO LIGHT SHAKE, DOES NOT RESPOND TO NAME, TURN AND REPO, PATIENT RESTLESS IN BED THROUGHOUT SHIFT, NO PURPOSEFUL MOVEMENT T ALTHOUGH MOVES ALL 4 EXTREMITIES, OCCASIONALLY MOANS OUT, UNABLE TO EAT/DRINK R/T CURRENT STATE, PER MD HOLD OFF ON ATIVAN IF POSSIBLE, INCREASED RR AROUND 1100 TODAY MD UPDATED AND CHEST X-RAY ORDERED ALONG WITH NEBS ADDED, TELE SHOWING NSR PRN METOPROLOL GIVEN FOR HR GREATER THAN 100, 1L NC, EXPIRATORY WHEEZE NOTED TO BE MOSTLY UPPER AIRWAY, WEISS PATENT, INCONTINENT OF BOWEL WITH SMEAR NOTED, DTR PRESENT THIS AFTERNOON AND VERY SUPPORTIVE.
--- NOTE | 2022-07-14 16:08 | RESP.RT ---
Unable to arouse pt this AM. Dean ABG to check CO2, and she did respond to pain from the ABG. PT with upper airway type coarse grunt. She has done this for a number of days. Noise radiates into lung oliver. She is using low flow oxygen. We will continue to check in and monitor her.
--- NOTE | 2022-07-14 20:39 | W.PM.CROSSCO ---
Subjective Subjective Date Seen: 07/14/22 Interval history: Patient agitated, moving quite a bit in bed, not following commands for safety. Will give one time dose of phenobarbital given risk to self and staff.
[2022-07-14] MEDS: PHENobarbitaL 260 MG in 0.9 % SODIUM CHLORIDE 100 ml 100 ML 208 MG IVPB (20:49)
[2022-07-14] MEDS: ENOXAPARIN 40 MG/0.4 ML INJ SUBCUT (20:53)
[2022-07-15] VITALS (20 sets, daily range): BP systolic 129–201; BP diastolic 66–127; PULSE 84–128; RESP 10–28; TEMP 36.1–37.3; O2SAT 89–96; BMI 39.4
[2022-07-15] MEDS: LACTATED RINGERS 1000 ML 500 ML IV (00:19)
[2022-07-15] MEDS: METOPROLOL TARTRATE 1 MG/ML inj 10 MG IVP ×3 (00:19→15:13)
[2022-07-15] MEDS: LORazepam 2 MG/ML inj IVP ×2 (00:20→05:05)
--- NOTE | 2022-07-15 06:08 | PC.NURSE ---
Shift note : Pt nonverbal, does not open her eyes, intermittently restless and thrashing about in bed. Throwing both of her legs over the side of bed and setting off bed alarm, grunting loudly. MD ordered phenobarbital, pt responded well, HR came back down and blood pressure lowered. PRN Ativan given as well per eMAR. Pt with 3 loose stools overnight, barrier cream applied r/t redness. Tele reads sinus tach, oxygen saturations in the low to mid 90's on 1L, afebrile, WEISS patent and draining. PRN Metoprolol given for increased HR, effective. Pt unable to participate in cares, is a heavy two assist to turn and reposition, resistive to cares, and unable to be redirected. Low urine output at HS, MD updated, fluid bolus ordered and given. This AM pt urine output 100ml, will update MD.
[2022-07-15 06:26] LABS: Basophils Absolute Auto 0.07 K/uL (0.00-0.30); Basophils Percent Auto 1.4 % (0.0-3.0); Eosinophils Absolute Auto 0.13 K/uL (0.00-0.50); Eosinophils Percent Auto 2.6 % (0.0-7.0); Hematocrit 27.2 % (33.0-51.0); Hemoglobin* 8.1 gm/dL (12.0-16.0); Immature Granulocytes Abs Auto 0.01 K/uL (0.00-0.30); Lymphocytes Percent Auto 18.5 % (20-44); Mean Corpuscular HGB Conc 30 gm/dL (32-36); Mean Corpuscular Hemoglobin 27 pg (26-34); Mean Corpuscular Volume 90 fL (80-100); Monocytes Percent Auto 12.8 % (0.0-11.0); Neutrophils Absolute Auto 3.29 K/uL (1.7-7.0); Neutrophils Percent Auto 64.5 % (42.0-72.0); Platelet Count* 235 K/uL (140-440); RDW Coefficient of Variation % 16.9 % (11.5-15.5); Red Blood Count 3.04 m/uL (4.00-5.20); White Blood Count* 5.09 K/uL (4.50-11.00)
[2022-07-15 06:34] LABS: Slide Review Reflex No
[2022-07-15 07:28] LABS: Chloride* 105 mmol/L (96-114); Potassium* 3.2 mmol/L (3.6-5.1); Sodium* 140 mmol/L (135-149)
[2022-07-15 07:31] LABS: Blood Urea Nitrogen* 9 mg/dL (7-30); Carbon Dioxide* 26 mmol/L (20-32); Creatinine* 0.5 mg/dL (0.5-1.5); Est. Creatinine Clearance* 45.78; Estimated Glomerular Filt Rate 103 ml/min
[2022-07-15 07:32] LABS: Glucose* 119 mg/dL (60-115)
[2022-07-15] MEDS: THIAMINE 250 MG in 0.9 % SODIUM CHLORIDE 100 ml 100 ML 102.5 MG IVPB ×3 (08:42→20:49)
[2022-07-15] MEDS: 5 % DEX/0.9 SOD CHL+KCL 20 mEq 1,000 ML 75 ML IV (08:42)
[2022-07-15] MEDS: IPRAT-ALBUT 0.5-2.5 MG/3 ML NEB 1 NEB IH ×3 (08:42→18:52)
[2022-07-15] MEDS: BUPRENORPHINE-NALOX 8-2MG FILM 1 EACH SUBLINGUAL (08:43)
[2022-07-15] MEDS: PANTOPRAZOLE SODIUM 40 MG INJ IVP (08:43)
[2022-07-15] MEDS: NICOTINE 14 mg PATCH 1 PATCH TRANSDERMA (08:43)
[2022-07-15] MEDS: SODIUM CHLORIDE 0.9 % (FLUSH) 10 ML SYRINGE 5 ML IVF ×2 (08:44→20:50)
[2022-07-15 09:40] LABS: Basophils Absolute Auto 0.11 K/uL (0.00-0.30); Basophils Percent Auto 1.3 % (0.0-3.0); Eosinophils Absolute Auto 0.17 K/uL (0.00-0.50); Eosinophils Percent Auto 2.1 % (0.0-7.0); Hematocrit 28.8 % (33.0-51.0); Hemoglobin* 8.5 gm/dL (12.0-16.0); Immature Granulocytes Abs Auto 0.01 K/uL (0.00-0.30); Lymphocytes Percent Auto 15.2 % (20-44); Mean Corpuscular HGB Conc 30 gm/dL (32-36); Mean Corpuscular Hemoglobin 27 pg (26-34); Mean Corpuscular Volume 90 fL (80-100); Monocytes Percent Auto 14.2 % (0.0-11.0); Neutrophils Absolute Auto 5.53 K/uL (1.7-7.0); Neutrophils Percent Auto 67.1 % (42.0-72.0); Platelet Count* 302 K/uL (140-440); Red Blood Count 3.21 m/uL (4.00-5.20); White Blood Count* 8.24 K/uL (4.50-11.00)
[2022-07-15 10:04] LABS: Albumin* 3.1 g/dL (3.3-5.0); Chloride* 109 mmol/L (96-114)
[2022-07-15 10:05] LABS: INR 1.25 (0.91-1.10); Potassium* 3.8 mmol/L (3.6-5.1); Prothrombin Time 16.4 Seconds; Sodium* 143 mmol/L (135-149)
[2022-07-15 10:07] LABS: Alanine Aminotransferase* 26 U/L (4-35); Alkaline Phosphatase* 87 U/L (40-150); Aspartate Amino Transferase* 38 U/L (12-35); Bilirubin Total* 1.1 mg/dL (0.1-1.5); Blood Urea Nitrogen* 8 mg/dL (7-30); Carbon Dioxide* 24 mmol/L (20-32); Creatinine* 0.4 mg/dL (0.5-1.5); Est. Creatinine Clearance* 45.78; Estimated Glomerular Filt Rate 109 ml/min; Glucose* 119 mg/dL (60-115); Total Protein* 5.8 g/dL (6.0-8.3)
[2022-07-15 10:08] LABS: Calcium* 7.6 mg/dL (8.4-10.6); Magnesium* 1.4 mg/dL (1.5-2.6); Phosphorus* 2.7 mg/dL (2.5-4.5); Triglycerides* 121 mg/dL (40-149)
[2022-07-15 10:10] LABS: Slide Review Reflex No
[2022-07-15 10:17] LABS: Glucose, Point-of-Care* 119 mg/dl (60-115)
[2022-07-15] MEDS: MAGNESIUM SULFATE 2 GM/50 ML PIGGYBACK IVPB (12:26)
[2022-07-15] MEDS: AA 5 %/CALCIUM/LYTES/DEXT 20 % 2,000 ML 25 ML IVPB (14:56)
--- NOTE | 2022-07-15 16:08 | PM.IMPN1 ---
Progress Note: A&P Assessment and plan (1) Delirium tremens: Problem details: Discontinued phenobarbital and continue p.r.n. lorazepam. Try to taper her off sedation to allow her to arouse more Status: Acute (2) GI bleed: Problem details: Bleeding has resolved. VTE prophylaxis with enoxaparin has been initiated. Monitor for bleeding returning. Having nonbloody diarrhea Status: Acute (3) Encephalopathy acute: Problem details: Primary problem appears to be severe alcohol withdrawal/delirium tremens. Likely toxic metabolic encephalopathy. Patient has been slow to wake up. Try to taper off of sedating medications. May benefit from neurologic evaluation, brain MRI, EEG. Unable to transfer patient is due to tertiary care hospital bed limitations in this region. Optimize supportive cares Status: Acute (4) Protein calorie malnutrition: Problem details: Still not able to swallow. Start TPN today Status: Acute (5) Hypokalemia: Problem details: replace and trend. Status: Acute (6) Anemia: Problem details: Previously anemia of chronic disease, now ABLA anemia. 1 U PRBC tx 07/06/22. 1 U PRBC tx 07/07/22. 1 U PRBC tx 07/08/2022. Stable Status: Acute (7) H/O opioid abuse: Problem details: On suboxone in outpatient setting. Taper Suboxone to open opportunities for placement Status: Acute (8) Alcohol use disorder, severe, dependence: Problem details: Patient acknowledges drinking 1 pt of vodka daily up until this admission. Our perinatal social worker is to give info on treatment centers. Family reports multiple previous alcohol treatment programs Status: Acute (9) Cirrhosis, alcoholic: Problem details: 07/07/2022: MELD 3.0 score of 20. MELD Na score 23. MELD score of 22. Status: Acute (10) Nicotine dependence due to vaping non-tobacco product: Problem details: Initiated Nicotrol inhaler device as needed in hospital. Status: Acute (11) Urinary retention: Problem details: Postvoid residual [address] for I&O monitoring until patient is no longer critically ill. Status: Acute (12) Volume overload state of heart: Problem details: Chest x-ray and echocardiogram suggests this. NT pro-BNP 760 07/10/2022. Monitor volume status closely. Now appears relatively dry/intravascular volume depletion Status: Acute (13) Superficial venous thrombosis of arm: Problem details: Basilic vein thrombosis of right arm. Status: Acute (14) Sinus tachycardia: Problem details: Secondary to DTs. Monitor for other illness that could cause sinus tachycardia. Increase metoprolol for rate control for now Status: Acute (15) Hypertension: Problem details: Continue to monitor. Not taking oral medication yet. IV metoprolol for rate control and blood pressure control Status: Acute (16) Fluid imbalance: Problem details: Difficult to assess. Currently with low urine output. BUN and creatinine adequate. Minimal edema now. Appears to be somewhat dry Status: Acute (17) Pneumonitis: Problem details: On chest x-ray noted to have pneumonitis or bronchitis. Continue to monitor respiratory status Status: Acute (18) Disorder of upper airway: Problem details: Trial of CPAP to see if this helps her breathing. Status: Acute Plan Continue in CCU for management of encephalopathy, nutrition, airway Time Spent With Patient Total time spent: Total time spent today is 60 minutes in critical care evaluation and management Subjective Date Seen: 07/15/22 Interval history: 66-year-old female seen in followup of alcohol withdrawal/delirium tremens/altered mental status. She got very restless last night and did receive some phenobarbital and lorazepam. During the day today she has been intermittently making movements. She is not specifically responding to voice her to touch except she does increase her movements when she is touched or examined. These appear to be somewhat more purposeful repositioning herself in bed today. She appears to be having increased work of breathing with expiratory wheezing which sounds more like upper airway obstruction. She is seen with her daughter as well today. Daughter indicates significant past history of alcohol problems, treatment and evaluation indicating cognitive impairment/Wernicke Korsakoff's. It has been recommended that she be in a supervised setting because of her cognitive problems at baseline. Exam Narrative: Exam Narrative: She is sleeping. She does not arouse to voice but she does move when I touch her or reposition her to examine her. She resists eye opening. When I do open her eyes her pupils are equal and small. She appears to have some increased work and rate of breathing with expiratory wheezing primarily noted in her upper airway. Auscultation of her lungs is relatively clear. Cardiovascular S1, S2, regular tachycardia. Abdomen is soft without obvious tenderness or mass. She moves all 4 extremities fairly well. Const: Vital Signs, click to edit/add: Vital Signs - 24 hr 07/14/22 16:13 07/14/22 19:00 07/14/22 21:00 Temperature 97 F L 97.2 F L Pulse Rate Pulse Rate [Left P ulse Oximeter] 114 H 92 Respiratory Rate 26 H 20 Blood Pressure [Le ft Arm] 134/84 119/59 L Pulse Oximetry 94 94 Oxygen Delivery Me thod Nasal Cannula Nasal Cannula Nasal Cannula Oxygen Flow Rate 1 1 07/14/22 23:00 07/14/22 23:00 07/14/22 23:00 Temperature 97.2 F L Pulse Rate Pulse Rate [Left P ulse Oximeter] 89 Respiratory Rate 20 Blood Pressure [Le ft Arm] 98/57 L Pulse Oximetry 93 93 93 Oxygen Delivery Me thod Nasal Cannula Nasal Cannula Oxygen Flow Rate 1 1 07/15/22 00:08 07/15/22 01:11 07/14/22 23:00 Temperature 97.1 F L 97 F L Pulse Rate 109 H Pulse Rate [Left P ulse Oximeter] 128 H 111 H Respiratory Rate 28 H 24 Blood Pressure [Le ft Arm] 201/127 H 161/100 H Pulse Oximetry 90 91 Oxygen Delivery Me thod Nasal Cannula Nasal Cannula Oxygen Flow Rate 1 1 07/15/22 02:05 07/15/22 03:00 07/15/22 04:47 Temperature 97.4 F L 97.0 F L 97.3 F L Pulse Rate Pulse Rate [Left P ulse Oximeter] 96 98 109 H Respiratory Rate 22 22 28 H Blood Pressure [Le ft Arm] 137/67 137/67 157/107 H Pulse Oximetry 93 91 92 Oxygen Delivery Me thod Nasal Cannula Nasal Cannula Nasal Cannula Oxygen Flow Rate 1 1 1 07/15/22 07:28 07/15/22 07:51 07/15/22 07:51 Temperature Pulse Rate 101 H Pulse Rate [Left P ulse Oximeter] Respiratory Rate 28 H Blood Pressure [Le ft Arm] Pulse Oximetry 90 90 Oxygen Delivery Me thod Nasal Cannula Oxygen Flow Rate 1 07/15/22 08:02 07/15/22 08:05 07/15/22 08:06 Temperature 97.2 F L 97.2 F L Pulse Rate Pulse Rate [Left P ulse Oximeter] 111 H 111 H 111 H Respiratory Rate 24 24 24 Blood Pressure [Le ft Arm] 133/66 133/66 Pulse Oximetry 96 96 Oxygen Delivery Me thod Nasal Cannula Nasal Cannula Oxygen Flow Rate 1 1 07/15/22 11:31 07/15/22 15:02 07/15/22 15:02 Temperature 99.2 F 98.7 F Pulse Rate Pulse Rate [Left P ulse Oximeter] 116 H 110 H Respiratory Rate 26 H 26 H 24 Blood Pressure [Le ft Arm] 150/93 H 152/84 H Pulse Oximetry 90 89 89 Oxygen Delivery Me thod Room Air Room Air Room Air Oxygen Flow Rate 07/15/22 15:18 07/15/22 15:22 07/15/22 15:24 Temperature 98.7 F Pulse Rate 107 H Pulse Rate [Left P ulse Oximeter] 110 H Respiratory Rate 24 Blood Pressure [Le ft Arm] 152/84 H Pulse Oximetry 91 91 Oxygen Delivery Me thod Room Air Oxygen Flow Rate 1 07/15/22 15:24 07/15/22 11:15 Temperature Pulse Rate Pulse Rate [Left P ulse Oximeter] 110 H 110 H Respiratory Rate 24 26 H Blood Pressure [Le ft Arm] Pulse Oximetry Oxygen Delivery Me thod Oxygen Flow Rate Documenting provider has reviewed patient's vital signs: yes Labs Labs: Laboratory Results - last 24 hr 07/15/22 07/15/22 07/15/22 05:50 05:50 09:00 WBC 5.09 RBC 3.04 L Hgb 8.1 L Hct 27.2 L MCV 90 MCH 27 MCHC 30 L RDW Coeff of Manny 16.9 H Plt Count 235 Neut % (Auto) 64.5 Lymph % (Auto) 18.5 L Summers % (Auto) 12.8 H Eos % (Auto) 2.6 Baso % (Auto) 1.4 Neut # (Auto) 3.29 Lymph # (Auto) 0.90 Summers # (Auto) 0.70 Eos # (Auto) 0.13 Baso # (Auto) 0.07 Abs Immat Gran (auto) 0.01 INR Sodium 140 Potassium 3.2 L Chloride 105 Carbon Dioxide 26 BUN 9 Creatinine 0.5 Estimated Creat Clear 45.78 Estimated GFR 103 Glucose 119 H Calcium 8.0 L Phosphorus Magnesium Total Bilirubin AST ALT Alkaline Phosphatase Total Protein Albumin Triglycerides POC Glucose 119 H 07/15/22 07/15/22 07/15/22 09:28 09:28 09:28 WBC 8.24 RBC 3.21 L Hgb 8.5 L Hct 28.8 L MCV 90 MCH 27 MCHC 30 L RDW Coeff of Manny 17.0 H Plt Count 302 Neut % (Auto) 67.1 Lymph % (Auto) 15.2 L Summers % (Auto) 14.2 H Eos % (Auto) 2.1 Baso % (Auto) 1.3 Neut # (Auto) 5.53 Lymph # (Auto) 1.30 Summers # (Auto) 1.20 H Eos # (Auto) 0.17 Baso # (Auto) 0.11 Abs Immat Gran (auto) 0.01 INR 1.25 H Sodium 143 Potassium 3.8 Chloride 109 Carbon Dioxide 24 BUN 8 Creatinine 0.4 L Estimated Creat Clear 45.78 Estimated GFR 109 Glucose 119 H Calcium 7.6 L Phosphorus 2.7 Magnesium 1.4 L Total Bilirubin 1.1 AST 38 H ALT 26 Alkaline Phosphatase 87 Total Protein 5.8 L Albumin 3.1 L Triglycerides 121 POC Glucose
--- NOTE | 2022-07-15 20:15 | PC.NURSE ---
end of shift./ pt is still nonverbal, she did open her eyes today with sternal rub and touch later. she has been intermittently restless and thrashing about in bed at times. no Ativan per md and to keep her safe. 1 loose stool and barrier cream was applied/ butt is red. Tele reads sinus tach. oxygen saturations in the low to mid 90's on RA to 1L, she was turned and repositioned every 2 hours and she also repositions her self. Allen has been patent. PRN Metoprolol given for increased HR. RT was in to see and CPAP was started @ 1500. Pt is a heavy two assist to turn and reposition, she does not help. she is resistive to cares and blood pressures. TPN and Lipids where started. daughter was here and Sunil was updated. Cont Sao2 is on. she has not pulled at any equipment so far. Picc is patent and dressing is due to be changed on Wednesday. she got mag today. md was updated.
[2022-07-15] MEDS: OLANZapine 5 MG/ML inj IVP (20:49)
[2022-07-15] MEDS: ENOXAPARIN 40 MG/0.4 ML INJ SUBCUT (20:49)
[2022-07-16] VITALS (18 sets, daily range): BP systolic 101–154; BP diastolic 57–114; PULSE 95–130; RESP 10–28; TEMP 36.2–37.1; O2SAT 90–95
[2022-07-16] MEDS: IPRAT-ALBUT 0.5-2.5 MG/3 ML NEB 1 NEB IH ×2 (00:39→06:55)
[2022-07-16] MEDS: LORazepam 2 MG/ML inj IVP ×4 (00:39→12:53)
[2022-07-16] MEDS: METOPROLOL TARTRATE 1 MG/ML inj 10 MG IVP (02:51)
--- NOTE | 2022-07-16 06:08 | PC.NURSE ---
SHIFT NOTE -: Pt nonverbal, pt arouses to shaking and touch but is not opening eyes. Intermittently restless and moaning, PRN Ativan given x2 with some relief. Pt on CPAP intermittently throughout the night, taken off for awhile per MD because the pt was spitting her secretions out and loudly grunting. Tele NSR to ST, PRN Metoprolol given x1 for HR consistently in the 120's, effective. PICC patent, TPN and lipids infusing overnight. WEISS patent, urine output this AM 175ml. Urine output at HS was 200ml, MD updated with no new orders received. Pt had two loose stools overnight, barrier cream applied to teresa area and reddened rectum. Pt requiring frequent repositioning with a heavy 2 assist.
[2022-07-16 07:34] LABS: HCO3 VBG 27 mmol/L (21-28); PCO2 VBG 36 mmHG (40-50); PO2 VBG 63.7 mmHG (25-47)
[2022-07-16] MEDS: METOPROLOL TARTRATE 1 MG/ML inj 5 MG IVP ×4 (08:46→20:49)
[2022-07-16] MEDS: PANTOPRAZOLE SODIUM 40 MG INJ IVP (08:46)
[2022-07-16] MEDS: BUPRENORPHINE-NALOX 8-2MG FILM 1 EACH SUBLINGUAL (08:46)
--- NOTE | 2022-07-16 10:22 | CRLHL7_ITS ---
For Patients: As a result of the Century Cures Act, medical imaging exams and procedure reports are released immediately into your electronic medical record. You may view this report before your referring provider. If you have questions, please contact your health care provider. INDICATION: Obtunded. TECHNIQUE: Brain MRI without contrast. The following sequences were obtained: Sagittal T1 weighted sequence. DWI and ADC mapping sequences. Axial FLAIR and WING T2 weighted sequences. Susceptibility or GRE sequence. COMPARISON: Head CT from 07/14/2022. FINDINGS: No evidence of acute ischemia. Focus susceptibility related low signal within the left occipital lobe with corresponding subtle T2 hypointensity, most consistent with a cavernoma. Scattered FLAIR hyperintensities within the supratentorial white matter, typical for chronic microvascular ischemic change. No mass effect or herniation. No hydrocephalus or extra-axial collections. The pituitary gland, parasellar structures and optic chiasm are normal. Posterior fossa is normal. All the major intracranial vascular structures demonstrate normal flow-related signal. The orbital contents are normal. No calvarial or skull base marrow replacing process. Scattered sites of mild paranasal sinus mucosal thickening. Bilateral mastoid effusions. Left frontotemporal scalp subgaleal T2 hyperintensity, possibly reflecting a hematoma. There may be an additional T2 hyperintense hematoma within the soft tissues overlying the zygoma and lateral to the orbit. Contiguous edema/swelling within the left infratemporal soft tissues. IMPRESSION: 1. No acute infarction, acute intracranial hemorrhage or other acute intracranial pathology. 2. Small left occipital cavernoma. 3. [id number] chronic microvascular ischemic changes. 4. Probable left facial/scalp hematomas. Correlate with any history trauma Dictated by Aki Faria MD @ 07/16/2022 1:18:54 PM (Electronically Signed)
[2022-07-16] MEDS: LACTATED RINGERS 1000 ML 1,000 ML 50 ML IV (11:24)
[2022-07-16 11:36] LABS: Basophils Absolute Auto 0.08 K/uL (0.00-0.30); Basophils Percent Auto 1.1 % (0.0-3.0); Eosinophils Absolute Auto 0.23 K/uL (0.00-0.50); Eosinophils Percent Auto 3.1 % (0.0-7.0); Hematocrit 26.9 % (33.0-51.0); Immature Granulocytes Abs Auto 0.02 K/uL (0.00-0.30); Immature Granulocytes Pct Auto 0.3 %; Lymphocytes Percent Auto 14.7 % (20-44); Mean Corpuscular HGB Conc 30 gm/dL (32-36); Mean Corpuscular Hemoglobin 27 pg (26-34); Mean Corpuscular Volume 89 fL (80-100); Monocytes Percent Auto 13.9 % (0.0-11.0); Neutrophils Absolute Auto 4.94 K/uL (1.7-7.0); Neutrophils Percent Auto 66.9 % (42.0-72.0); Platelet Count* 271 K/uL (140-440); RDW Coefficient of Variation % 17.2 % (11.5-15.5); Red Blood Count 3.01 m/uL (4.00-5.20); White Blood Count* 7.39 K/uL (4.50-11.00)
[2022-07-16 11:41] LABS: Slide Review Reflex No
[2022-07-16 11:48] LABS: Chloride* 109 mmol/L (96-114); Potassium* 3.8 mmol/L (3.6-5.1); Sodium* 142 mmol/L (135-149)
[2022-07-16 11:51] LABS: Blood Urea Nitrogen* 10 mg/dL (7-30); Calcium* 7.7 mg/dL (8.4-10.6); Carbon Dioxide* 27 mmol/L (20-32); Creatinine* 0.5 mg/dL (0.5-1.5); Est. Creatinine Clearance* 45.78; Estimated Glomerular Filt Rate 103 ml/min; Glucose* 143 mg/dL (60-115)
[2022-07-16 12:57] LABS: Prealbumin 7.5 mg/dL (20.0-40.0)
[2022-07-16] MEDS: AA 5 %/CALCIUM/LYTES/DEXT 20 % 2,000 ML 50 ML IVPB (13:53)
--- NOTE | 2022-07-16 16:15 | P.IMPN_ITS ---
Progress Note: A&P Assessment and plan (1) Delirium tremens: Problem details: Primary problem appeared to be delirium tremens. I believe that is clinically improved but she is neurologically not recovered. Working to taper off sedation to improve total of consciousness Status: Acute (2) Encephalopathy acute: Problem details: Primary problem appears to be severe alcohol withdrawal/delirium tremens. Likely toxic metabolic encephalopathy. Patient has been slow to wake up. Try to taper off of sedating medications. May benefit from neurologic evaluation and EEG. Unable to transfer patient is due to tertiary care hospital bed limitations in this region. Optimize supportive cares Status: Acute (3) GI bleed: Problem details: Bleeding has resolved. VTE prophylaxis with enoxaparin has been initiated. Monitor for bleeding returning. Having nonbloody diarrhea now. Status: Acute (4) Protein calorie malnutrition: Problem details: Unable to sit up and safely swallow for a week so TPN was started. Status: Acute (5) Anemia: Problem details: Previously anemia of chronic disease, now ABLA anemia. 1 U PRBC tx 07/06/22. 1 U PRBC tx 07/07/22. 1 U PRBC tx 07/08/2022. Stable Status: Acute (6) H/O opioid abuse: Problem details: On suboxone in outpatient setting. Taper Suboxone to open opportunities for placement. Status: Acute (7) Alcohol use disorder, severe, dependence: Problem details: Patient acknowledges drinking 1 pt of vodka daily up until this admission. Our clinical social worker is to give info on treatment centers. Family reports multiple previous alcohol treatment programs Status: Acute (8) Cirrhosis, alcoholic: Problem details: 07/07/2022: MELD 3.0 score of 20. MELD Na score 23. MELD score of 22. Status: Acute (9) Urinary retention: Problem details: Postvoid residual [address] for I&O monitoring until patient is no longer critically ill. Status: Acute (10) Volume overload state of heart: Problem details: Chest x-ray and echocardiogram suggests this. NT pro-BNP 760 07/10/2022. Monitor volume status closely. Now appears relatively dry/intravascular volume depletion Status: Acute (11) Superficial venous thrombosis of arm: Problem details: Basilic vein thrombosis of right arm. Catheter removed. VTE prophylaxis only Status: Acute (12) Sinus tachycardia: Problem details: Secondary to DTs. Monitor for other illness that could cause sinus tachycardia. Schedule metoprolol for blood pressure and heart rate control Status: Acute (13) Hypertension: Problem details: Continue to monitor. Not taking oral medication yet. IV metoprolol for rate control and blood pressure control Status: Acute (14) Fluid imbalance: Problem details: Continue to assess. Today patient appears to be mildly volume depleted. Add LR to TPN to improve urine output. Avoid volume overload. Status: Acute (15) Pneumonitis: Problem details: On chest x-ray noted to have pneumonitis or bronchitis. Continue to monitor respiratory status. Status: Acute (16) Disorder of upper airway: Problem details: Patient appears to have dysfunction of her upper airway with upper airway wheezing noted. This has much improved or resolved with CPAP at 5 cm of pressure. Not currently needing supplemental oxygen. Status: Acute Plan Continue in hospital for ongoing supportive cares. Work to optimize physiology to improve outcome from her encephalopathy. Monitor for complications of hospitalization in-hospital care. May need long-term acute care placement if she does not improve. Will need to talk with family about goals of care as raul severino. Time Spent With Patient Total time spent: Total time spent today is 50 minutes in critical care evaluation and management Subjective Date Seen: 07/16/22 Interval history: 66-year-old female seen in followup of alcohol withdrawal and toxic metabolic encephalopathy. Patient continues to be difficult to arouse. She does minimally respond to touch and voice with movements. She does not open her eyes or verbally respond. Episodically she is moving in bed repositioning herself. She has been on CPAP overnight which seems to help the perceived upper airway obstruction in her breathing causing an upper airway wheezing. She is not needing significant supplemental oxygen and the CPAP is set at 5 cm of pressure. She is still receiving occasional lorazepam for agitation. She remains on TPN and IV fluids for nutrition and hydration. Exam Narrative: Exam Narrative: She is sleeping in bed when I see her. She minimally arouses when I touch her and moves a little bit. No specific withdrawal to pain however. Respirations are clear to auscultation. When she is on CPAP I do not hear the upper airway wheezing sound. Cardiovascular: S1, S2, regular tachycardia. Abdomen is soft without tenderness or mass. Extremities without edema. She moves all 4 extremities fairly well. Const: Vital Signs, click to edit/add: Vital Signs - 24 hr 07/15/22 16:28 07/15/22 18:35 07/15/22 21:00 Temperature Pulse Rate Pulse Rate [Left P ulse Oximeter] Respiratory Rate Blood Pressure [Le ft Arm] Pulse Oximetry 91 95 Oxygen Delivery Me thod BiPAP Oxygen Flow Rate Fraction of Inspir ed Oxygen 25 07/15/22 19:00 07/15/22 23:00 07/15/22 23:00 Temperature 98 F Pulse Rate 85 Pulse Rate [Left P ulse Oximeter] 112 H Respiratory Rate 10 L Blood Pressure [Le ft Arm] 144/86 H Pulse Oximetry 95 96 Oxygen Delivery Me thod CPAP Oxygen Flow Rate Fraction of Inspir ed Oxygen 25 07/15/22 23:00 07/15/22 23:00 07/15/22 23:00 Temperature 97.9 F Pulse Rate Pulse Rate [Left P ulse Oximeter] 84 84 Respiratory Rate 10 L 10 L 10 L Blood Pressure [Le ft Arm] 129/76 Pulse Oximetry 96 96 Oxygen Delivery Me thod CPAP CPAP Oxygen Flow Rate Fraction of Inspir ed Oxygen 25 25 07/15/22 23:00 07/16/22 00:37 07/16/22 01:57 Temperature 97.9 F 97.9 F 97.8 F Pulse Rate Pulse Rate [Left P ulse Oximeter] 84 130 H 122 H Respiratory Rate 10 L 28 H 26 H Blood Pressure [Le ft Arm] 129/76 101/79 122/82 Pulse Oximetry 96 90 94 Oxygen Delivery Me thod CPAP Nasal Cannula Oxygen Flow Rate 1 Fraction of Inspir ed Oxygen 25 07/16/22 02:35 07/16/22 03:00 07/16/22 05:00 Temperature 97.4 F L 97.6 F Pulse Rate Pulse Rate [Left P ulse Oximeter] 126 H 108 H Respiratory Rate 28 H 22 Blood Pressure [Le ft Arm] 142/83 H 148/91 H Pulse Oximetry 95 94 94 Oxygen Delivery Me thod Nasal Cannula CPAP Oxygen Flow Rate 1 Fraction of Inspir ed Oxygen 25 07/16/22 07:32 07/16/22 09:15 07/16/22 09:15 Temperature 97.5 F L Pulse Rate 109 H Pulse Rate [Left P ulse Oximeter] 116 H Respiratory Rate 21 Blood Pressure [Le ft Arm] 144/98 H Pulse Oximetry 95 95 Oxygen Delivery Me thod CPAP Oxygen Flow Rate 1 Fraction of Inspir ed Oxygen 25 07/16/22 07:30 07/16/22 07:30 07/16/22 07:30 Temperature 97.5 F L Pulse Rate Pulse Rate [Left P ulse Oximeter] 116 H Respiratory Rate 21 21 Blood Pressure [Le ft Arm] 148/98 H Pulse Oximetry 95 95 95 Oxygen Delivery Me thod CPAP CPAP Oxygen Flow Rate 1 1 Fraction of Inspir ed Oxygen 25 25 07/16/22 10:46 07/16/22 11:34 07/16/22 08:00 Temperature 98.0 F Pulse Rate Pulse Rate [Left P ulse Oximeter] 113 H 113 H Respiratory Rate 15 15 Blood Pressure [Le ft Arm] 148/93 H Pulse Oximetry 91 Oxygen Delivery Me thod Trach Collar CPAP Oxygen Flow Rate Fraction of Inspir ed Oxygen 0.25 07/16/22 11:30 07/16/22 11:15 07/16/22 15:37 Temperature 98.0 F Pulse Rate 120 H Pulse Rate [Left P ulse Oximeter] 113 H 113 H Respiratory Rate 15 15 Blood Pressure [Le ft Arm] 148/93 H Pulse Oximetry 91 Oxygen Delivery Me thod Trach Collar CPAP Oxygen Flow Rate 1 Fraction of Inspir ed Oxygen 0.25 07/16/22 15:42 07/16/22 15:44 07/16/22 15:40 Temperature 98.7 F Pulse Rate Pulse Rate [Left P ulse Oximeter] 123 H Respiratory Rate 21 Blood Pressure [Le ft Arm] 154/88 H Pulse Oximetry 93 93 92 Oxygen Delivery Me thod CPAP Oxygen Flow Rate Fraction of Inspir ed Oxygen 0.21 07/16/22 15:40 Temperature Pulse Rate Pulse Rate [Left P ulse Oximeter] Respiratory Rate 10 L Blood Pressure [Le ft Arm] Pulse Oximetry 92 Oxygen Delivery Me thod CPAP Oxygen Flow Rate Fraction of Inspir ed Oxygen 0.21 Documenting provider has reviewed patient's vital signs: yes Labs Labs: Laboratory Results - last 24 hr 07/15/22 07/15/22 07/15/22 05:50 09:28 09:28 WBC RBC Hgb Hct MCV MCH MCHC RDW Coeff of Manny Plt Count Neut % (Auto) Lymph % (Auto) [place] % (Auto) Eos % (Auto) Baso % (Auto) Neut # (Auto) Lymph # (Auto) [place] # (Auto) Eos # (Auto) Baso # (Auto) Abs Immat Gran (auto) Imm/Tot Granulo (auto) Not Reportable Not Reportable VBG pH VBG pCO2 VBG pO2 VBG HCO3 Sodium Potassium Chloride Carbon Dioxide BUN Creatinine Estimated Creat Clear Estimated GFR Glucose Calcium Magnesium Prealbumin 7.5 L 07/16/22 07/16/22 07/16/22 07:15 11:30 11:30 WBC 7.39 RBC 3.01 L Hgb 8.0 L Hct 26.9 L MCV 89 MCH 27 MCHC 30 L RDW Coeff of Manny 17.2 H Plt Count 271 Neut % (Auto) 66.9 Lymph % (Auto) 14.7 L [place] % (Auto) 13.9 H Eos % (Auto) 3.1 Baso % (Auto) 1.1 Neut # (Auto) 4.94 Lymph # (Auto) 1.10 [place] # (Auto) 1.00 H Eos # (Auto) 0.23 Baso # (Auto) 0.08 Abs Immat Gran (auto) 0.02 Imm/Tot Granulo (auto) 0.3 VBG pH 7.490 H VBG pCO2 36 L VBG pO2 63.7 H VBG HCO3 27 Sodium 142 Potassium 3.8 Chloride 109 Carbon Dioxide 27 BUN 10 Creatinine 0.5 Estimated Creat Clear 45.78 Estimated GFR 103 Glucose 143 H Calcium 7.7 L Magnesium 2.0 Prealbumin Imaging MRI - head: Radiologist's impression: [place] [address] Diagnostic Imaging Report Patient: Sue Orozco MR#: [id number] : 1955 Acct:[id number] Loc: [id number] Service Date: 07/16/[address]: Augusta Huerta M.D. Ordering Physician: Selwyn Galeas M.D. Date of Service: 07/16/22 Procedure(s): MR head/brain wo con Accession Number(s): [id number] cc: Eddie Salcedo M.D.; Selwyn Galeas M.D.~ For Patients:? As a result of the Cures Act, medical imaging exams and procedure reports are released immediately into your electronic medical record.? You may view this report before your referring provider.? If you have questions, please contact your health care provider. INDICATION: Obtunded. TECHNIQUE: Brain MRI without contrast. The following sequences were obtained: Sagittal T1 weighted sequence. DWI and ADC mapping sequences. Axial FLAIR and WING T2 weighted sequences. Susceptibility or GRE sequence. COMPARISON: Head CT from 07/14/2022. FINDINGS: No evidence of acute ischemia. Focus susceptibility related low signal within the left occipital lobe with corresponding subtle T2 hypointensity, most consistent with a cavernoma. Scattered FLAIR hyperintensities within the supratentorial white matter, typical for chronic microvascular ischemic change. No mass effect or herniation. No hydrocephalus or extra-axial collections. The pituitary gland, parasellar structures and optic chiasm are normal. Posterior fossa is normal. All the major intracranial vascular structures demonstrate normal flow-related signal. The orbital contents are normal. No calvarial or skull base marrow replacing process. Scattered sites of mild paranasal sinus mucosal thickening. Bilateral mastoid effusions. Left frontotemporal scalp subgaleal T2 hyperintensity, possibly reflecting a hematoma. There may be an additional T2 hyperintense hematoma within the soft tissues overlying the zygoma and lateral to the orbit. Contiguous edema/swelling within the left infratemporal soft tissues. IMPRESSION: 1. No acute infarction, acute intracranial hemorrhage or other acute intracranial pathology. 2. Small left occipital cavernoma. 3. [id number] chronic microvascular ischemic changes. 4. Probable left facial/scalp hematomas. Correlate with any history trauma Dictated by Aki Faria MD @ 07/16/2022 1:18:54 PM (Electronically Signed)
--- NOTE | 2022-07-16 18:58 | PC.NURSE ---
end of shift.? no changes. pt is nonverbal, she does open her eyes with touch. ? she is restless at times. ? Ativan 2 mg before MRI and 2 mg with MRI. 2 loose stool and barrier cream butt looked better today. ? Tele is sinus tach. ?CPAP is RA and pressure is at 5. turned and repositioned every 2 hours and she also repositions her self. ? Allen has been? patent. 200 out on days md is aware. ? Metoprolol IVP q 4 hours.? two assist to turn and reposition,? she does not help.? TPN @ 50 and LR @ 50. ? Cont Sao2 is on. ? ? Picc is patent and dressing is due to be changed on Wednesday. ?
[2022-07-16] MEDS: SODIUM CHLORIDE 0.9 % (FLUSH) 10 ML SYRINGE 5 ML IVF (20:49)
[2022-07-16] MEDS: OLANZapine 5 MG/ML inj IVP (20:49)
[2022-07-16] MEDS: ENOXAPARIN 40 MG/0.4 ML INJ SUBCUT (20:49)
[2022-07-17] VITALS (17 sets, daily range): BP systolic 98–155; BP diastolic 80–122; PULSE 92–130; RESP 12–24; TEMP 35.5–36.6; O2SAT 90–96
[2022-07-17] MEDS: IPRAT-ALBUT 0.5-2.5 MG/3 ML NEB 1 NEB IH ×4 (02:19→18:44)
[2022-07-17] MEDS: METOPROLOL TARTRATE 1 MG/ML inj 5 MG IVP ×4 (02:20→10:07)
[2022-07-17] MEDS: LORazepam 2 MG/ML inj IVP ×2 (02:31→11:41)
[2022-07-17] MEDS: LACTATED RINGERS 1000 ML 1,000 ML 50 ML IV (06:25)
--- NOTE | 2022-07-17 07:20 | PC.NURSE ---
Shift Note -: Pt remains nonverbal, eyes closed all shift, responds to light pain and shaking. PRN Ativan given x1 this shift for restlessness and moaning and CIWA of 14. Pt repositioned frequently with a heavy 2 assist, 2 loose stools, barrier cream to coccyx. Allen patent and draining with dark tate urine. Pt on CPAP most of the night with O2 sats in the low to mid 90's, pt given a few breaks and placed on 2L O2 PNC with oxygen saturations in the mid 90's. Pt afebrile.
[2022-07-17] MEDS: SODIUM CHLORIDE 0.9 % (FLUSH) 10 ML SYRINGE 5 ML IVF ×4 (08:37→20:50)
[2022-07-17] MEDS: PANTOPRAZOLE SODIUM 40 MG INJ IVP (08:37)
[2022-07-17] MEDS: BUPRENORPHINE-NALOX 8-2MG FILM 1 EACH SUBLINGUAL (08:37)
--- NOTE | 2022-07-17 10:37 | CRLHL7_ITS ---
For Patients: As a result of the Century Cures Act, medical imaging exams and procedure reports are released immediately into your electronic medical record. You may view this report before your referring provider. If you have questions, please contact your health care provider. INDICATION: Hypoxia. TECHNIQUE: Chest 1 view. COMPARISON: Chest radiograph 07/14/2022. FINDINGS: Left PICC with tip in upper SVC. Interval placement of an enteric tube with tip projected over the stomach. Stable diffuse bilateral interstitial opacities. New patchy opacity in the right apex suspicious for pneumonia. No pleural effusion or pneumothorax. Mild cardiomegaly with prominent central pulmonary vascularity. The bones are unremarkable. IMPRESSION: 1. New patchy opacity in the right apex suspicious for pneumonia. 2. Mild cardiomegaly with diffuse bilateral interstitial opacities likely due to edema. Dictated by Karolina Menendez MD @ 07/17/2022 11:26:02 AM (Electronically Signed)
--- NOTE | 2022-07-17 11:18 | CRLHL7_ITS ---
For Patients: As a result of the 21st Century Cures Act, medical imaging exams and procedure reports are released immediately into your electronic medical record. You may view this report before your referring provider. If you have questions, please contact your health care provider. INDICATION: Encephalopathy, alcohol withdrawal. Unresponsive with respiratory problems. TECHNIQUE: CT of the chest, abdomen, and pelvis with 95 cc Isovue 370 IV contrast. Coronal and sagittal reconstructions. COMPARISON: CT of the abdomen and pelvis 07/06/2022. CT chest, abdomen, pelvis 04/08/2022. Chest radiograph 07/17/2022. FINDINGS: Chest: Heart size upper limits of normal. Normal caliber thoracic aorta and central pulmonary arteries. Coronary artery and aortic vascular calcifications. No large central pulmonary embolism. Evaluation of the segmental and subsegmental pulmonary artery branches is limited by motion artifact and suboptimal opacification. No pericardial effusion. Stable mildly prominent mediastinal and bilateral hilar lymph nodes which may be reactive. Left PICC with tip in the brachiocephalic vein. The imaged thyroid gland is normal in appearance. Evaluation of the lungs is limited by motion artifact. New small bilateral pleural effusions and bibasilar atelectasis. New large patchy ground-glass opacity in the right apex is likely infectious or inflammatory. Few other small scattered patchy ground-glass opacities in the right upper lobe and left upper lobe. No pneumothorax. Mild upper lung predominant emphysema. Two stable 5-6 mm noncalcified pulmonary nodules in the lateral right middle lobe (series 6 images 95 and 100). The bones are unremarkable. Abdomen/pelvis: The liver, spleen, and adrenal glands are negative. Fatty infiltration of the pancreas. Cholecystectomy. Stable mild dilation of the common bile duct likely related to postcholecystectomy state. Portal veins are patent. Symmetric enhancement of the kidneys. Tiny low-attenuation lesion in the lower pole of the right kidney is too small to characterize. No hydronephrosis or ureteral dilation. No obstructing urinary calculi identified. Allen catheter within a decompressed urinary bladder. Gas in the bladder likely related to instrumentation. Hysterectomy. No adnexal mass. Postoperative changes of Leonardo-en-Y gastric bypass. Interval placement of an enteric tube with tip in the proximal Leonardo limb. No small bowel dilation. No significant stool burden. Submucosal fat deposition throughout the ascending and transverse colon can be seen in the setting of chronic inflammation. Negative appendix. No intraperitoneal free air or fluid. Stable small fat containing epigastric ventral hernia to the left of midline with stranding of the internal fat. Stable small soft tissue nodule in the left upper abdominal wall. Scattered subcutaneous foci of gas likely related to injections. New prominent body wall edema. Aortoiliac vascular calcifications. No lymphadenopathy. Degenerative changes of the spine. IMPRESSION: 1. No large central pulmonary embolism. Evaluation of the segmental and subsegmental pulmonary artery branches is limited by motion artifact and suboptimal opacification. 2. New small bilateral pleural effusions and prominent body wall edema. 3. New bilateral patchy ground-glass opacities greatest in the right apex which are likely infectious or inflammatory. 4. Two stable noncalcified pulmonary nodules measuring up to 6 mm. Please see follow-up guidelines below. 5. No acute findings in the abdomen or pelvis. [employer] GUIDELINES - SOLID NODULES: : SINGLE LOW RISK - nodule less than 6 mm: No routine follow-up. - nodule 6-8 mm: CT at 6-12 months, then consider CT at 18-24 months. - nodule greater than 8 mm: Consider CT at 3 months, PET/CT or tissue sampling. SINGLE HIGH RISK - nodule less than 6 mm: Optional CT at 12 months. - nodule 6-8 mm: CT at 6-12 months, then CT at 18-24 months. - nodule greater than 8 mm: Consider CT at 3 months, PET/CT or tissue sampling. MULTIPLE LOW RISK - nodule less than 6 mm: No routine follow-up. - nodule 6-8 mm: CT at 3-6 months, then consider CT at 18-24 months. - nodule greater than 8 mm: CT at 3-6 months, then consider CT at 18-24 months. MULTIPLE HIGH RISK - nodule less than 6 mm: Optional CT at 12 months. - nodule 6-8 mm: CT at 3-6 months, then at 18-24 months. - nodule greater than 8 mm: CT at 3-6 months, then at 18-24 months. Please note that all CT scans at this facility use dose modulation, iterative reconstruction, and/or weight-based dosing when appropriate to reduce radiation dose to as low as reasonably achievable. Dictated by Karolina Menendez MD @ 07/17/2022 3:09:01 PM (Electronically Signed)
[2022-07-17 11:23] LABS: ABG PCO2 36 mmHG (35-45); Base Excess ABG 3.2 mmol/L (-3.0-3.0); HCO3 ABG 27 mmol/L (21-28); Oxygen Saturation ABG 97 % (92-100); PO2 ABG 75.4 mmHG (80-105); TCO2 ABG 25 mmol/l (21-30); pH ABG 7.48 (7.35-7.45)
[2022-07-17] MEDS: METOPROLOL TARTRATE 1 MG/ML inj 10 MG IVP ×2 (11:41→17:49)
[2022-07-17] MEDS: FUROSEMIDE 10 MG/ML inj 20 MG IVP ×2 (11:41→20:49)
[2022-07-17 12:13] LABS: NT Pro B Type NatriureticPept* 1960 PG/mL (0-125)
[2022-07-17 12:21] LABS: Procalcitonin* 0.07 ng/mL (<0.50)
[2022-07-17 14:23] LABS: Chloride* 110 mmol/L (96-114); Potassium* 4.4 mmol/L (3.6-5.1); Sodium* 141 mmol/L (135-149)
[2022-07-17 14:26] LABS: Blood Urea Nitrogen* 13 mg/dL (7-30); Carbon Dioxide* 22 mmol/L (20-32); Creatinine* 0.4 mg/dL (0.5-1.5); Est. Creatinine Clearance* 45.78; Estimated Glomerular Filt Rate 109 ml/min
[2022-07-17 14:27] LABS: Calcium* 8.9 mg/dL (8.4-10.6); Glucose* 141 mg/dL (60-115); Magnesium* 2.1 mg/dL (1.5-2.6); Phosphorus* 3.5 mg/dL (2.5-4.5)
--- NOTE | 2022-07-17 14:40 | NUTR.NU ---
MD consult for tube feeding recommendations: Plan is for nasogastric tube placement. TPN to be discontinued. Patient is unable to take in food and fluids by mouth. Current weight is 224#, height is 63. Adjusted body weight is 142#. Labs reviewed. Recommend to provide Isosource 1.5 via pump at 42 ml/hour x 24 hours per day to provide 1500 kcals (23.3 kcal/kg adj. weight) and 68 grams protein (1.0 g/kg adj. weight). Initiate feeding at 25 ml/hour for 8 hours and then advance to full 42 ml/hr as long as feeding is tolerated. Provide 220 ml water flush 4 times per day to provide a total of 1644 ml fluid (25.5 ml/kg adj. weight). This regimen will provide full nutrition and fluid needs.
[2022-07-17] MEDS: AA 5 %/CALCIUM/LYTES/DEXT 20 % 2,000 ML 50 ML IVPB (15:27)
--- NOTE | 2022-07-17 18:22 | PC.NURSE ---
Shift Summary: Patient has been unresponsive most of day, eyes open to painful stimuli but does not focus. CPAP throughout shift, when CPAP is off patient has loud expiratory wheeze that can be heard from the cadet. Appears comfortable with CPAP on. New NG placed in right nare @ 60cm by Dr. Galeas, placement verified. Tube feeding started @ 1700 going at 20cc/hr, placement checked prior to starting feeding. Required PRN ativan x1 for CT scan. Allen in place draining large amounts of light tate urine. Increased HR today, IV metoprolol increased to 10mg from 5mg. Bottom appeared red, T&R q2h and barrier cream applied.
[2022-07-17] MEDS: ENOXAPARIN 40 MG/0.4 ML INJ SUBCUT (20:51)
[2022-07-18] VITALS (16 sets, daily range): BP systolic 103–174; BP diastolic 63–90; PULSE 108–125; RESP 14–18; TEMP 36.1–36.9; O2SAT 90–100
[2022-07-18] MEDS: METOPROLOL TARTRATE 1 MG/ML inj 10 MG IVP ×3 (00:12→10:48)
[2022-07-18] MEDS: IPRAT-ALBUT 0.5-2.5 MG/3 ML NEB 1 NEB IH ×3 (00:14→12:50)
--- NOTE | 2022-07-18 06:45 | PC.NURSE ---
Shift note: Pt continuous to be restless, SOB and Wheezing. CPAP on tonight. BG monitored with sliding scale. Feeding tube patent, urinary catheter drained light tate colored urine.Turned and reposition every 2 hours.
[2022-07-18 07:06] LABS: Basophils Absolute Auto 0.06 K/uL (0.00-0.30); Basophils Percent Auto 0.7 % (0.0-3.0); Eosinophils Absolute Auto 0.11 K/uL (0.00-0.50); Eosinophils Percent Auto 1.4 % (0.0-7.0); Hematocrit 27.7 % (33.0-51.0); Hemoglobin* 8.2 gm/dL (12.0-16.0); Immature Granulocytes Abs Auto 0.01 K/uL (0.00-0.30); Immature Granulocytes Pct Auto 0.1 %; Lymphocytes Percent Auto 8.4 % (20-44); Mean Corpuscular HGB Conc 30 gm/dL (32-36); Mean Corpuscular Hemoglobin 26 pg (26-34); Mean Corpuscular Volume 89 fL (80-100); Monocytes Percent Auto 9.9 % (0.0-11.0); Neutrophils Percent Auto 79.5 % (42.0-72.0); Platelet Count* 316 K/uL (140-440); RDW Coefficient of Variation % 17.3 % (11.5-15.5); Red Blood Count 3.12 m/uL (4.00-5.20); White Blood Count* 8.11 K/uL (4.50-11.00)
[2022-07-18 07:09] LABS: Slide Review Reflex No
--- NOTE | 2022-07-18 07:22 | P.IMPN_ITS ---
Subjective Date Seen: 07/18/22 Interval history: Daily Progress Note - Hospital Medicine Day #: 13 Day 2 feeding tube, switched 07/17 from PICC feedings CC: OVERNIGHT UPDATES FROM STAFF & MED, LAB, IMAGING UPDATES nurse note: Shift note: Pt continuous to be restless, SOB and Wheezing. CPAP on tonight. BG monitored with sliding scale. Feeding tube patent, urinary catheter drained light tate colored urine.Turned and reposition every 2 hours. Remains afebrile, hypertensive. Sinus tachycardia intermittent CPAP use, respiratory rate 16 to 18 91-93% Baseline anemia, continues. Hemoglobin today 8.2 unremarkable white blood cell count and platelets. ABG yesterday no CO2 retention. Normal bicarb and pH. Oxygen saturations were a bit low at 75. CT chest abdomen pelvis from yesterday: 1. No large central pulmonary embolism. Evaluation of the segmental and subsegmental pulmonary artery branches is limited by motion artifact and suboptimal opacification. 2. New small bilateral pleural effusions and prominent body wall edema. 3. New bilateral patchy ground-glass opacities greatest in the right apex which are likely infectious or inflammatory. 4. Two stable noncalcified pulmonary nodules measuring up to 6 mm. Please see follow-up guidelines below. 5. No acute findings in the abdomen or pelvis. Med review: Getting furosemide 20 mg IV push every 12 hours, this is new starting yesterday, weight down 5.2 kg Metoprolol 10 mg IV push q.6 No Ativan since before her CT scan Review of Systems: See subjective Cardiac: No new chest pain/pressure/palpitations. Respiratory: no new dyspnea. GI: No abdominal bloating Objective: Vitals: see above Lungs: Clear. Cardiac: S1S2. ICU CARE SYSTEMS BASED ASSESSMENT/PLAN Vitals/MAP/Daily Weight: (improved BP now 137/80, still tachy 100-110), weight down 5kg with diuresis Imaging: -CAP CT: apical right lung findings - despite no fever and normal procal - treating with rocephin and azithromycin Lines: -central n/a -painter - draining -NG - feeding tube in place -drains - n/a -gtt - fluids on hold -chest tube n/a Antibiotics/Pressors/Sedation/Fluids/CV: rocephin/azithromycin fluids held TPN via feeding tube -meds IV Lopressor, IV protonix Neuro: obtunded; moving all extremitis, nonresponsive other than she will open her eyes Cardiovascular: sinus tachy; on IV Lopressor Respiratory: CPAP 06/17, ABG reviewed this am; hypoxic not hypercarbic GI: on protonix and tube feeds Renal/Electrolytes: ID: Endocrine: Hematology: Wounds/Injuries: Nutrition: Prophylaxis: Disposition: Total Critical Care Time 60 minutes caring for patient, to include care team orders, investigations, discussion with specialists, families. Disposition/Potential discharge - Likely to return to previous living situation. Total time is 35 minutes with greater than 50% spent in counseling and coordination of care. Exam Const: Vital Signs, click to edit/add: Vital Signs - 24 hr 07/17/22 07:50 07/17/22 08:35 07/17/22 10:02 Temperature 97.3 F L 97.2 F L Pulse Rate Pulse Rate [Left P ulse Oximeter] 95 115 H 114 H Respiratory Rate 16 17 17 Blood Pressure [Le ft Arm] 98/81 146/89 H 151/111 H Pulse Oximetry 95 92 94 Oxygen Delivery Me thod Nasal Cannula CPAP CPAP Oxygen Flow Rate 2 Fraction of Inspir ed Oxygen 07/17/22 10:02 07/17/22 10:26 07/17/22 11:11 Temperature 97.7 F Pulse Rate Pulse Rate [Left P ulse Oximeter] 112 H Respiratory Rate 14 Blood Pressure [Le ft Arm] 155/109 H Pulse Oximetry 94 95 Oxygen Delivery Me thod CPAP Oxygen Flow Rate Fraction of Inspir ed Oxygen 0.25 07/17/22 11:50 07/17/22 11:51 07/17/22 14:21 Temperature 97.3 F L Pulse Rate Pulse Rate [Left P ulse Oximeter] 111 H Respiratory Rate 12 Blood Pressure [Le ft Arm] 136/84 Pulse Oximetry 90 Oxygen Delivery Me thod CPAP CPAP Oxygen Flow Rate Fraction of Inspir ed Oxygen 0.25 0.21 07/17/22 15:00 07/17/22 15:00 07/17/22 15:00 Temperature Pulse Rate 114 H Pulse Rate [Left P ulse Oximeter] Respiratory Rate Blood Pressure [Le ft Arm] Pulse Oximetry 91 90 Oxygen Delivery Me thod CPAP Oxygen Flow Rate Fraction of Inspir ed Oxygen 07/17/22 15:00 07/17/22 18:09 07/17/22 18:09 Temperature 97.3 F L 97.8 F Pulse Rate Pulse Rate [Left P ulse Oximeter] 111 H 104 H Respiratory Rate 12 14 Blood Pressure [Le ft Arm] 136/84 Pulse Oximetry 90 93 93 Oxygen Delivery Me thod CPAP CPAP Oxygen Flow Rate Fraction of Inspir ed Oxygen 07/17/22 20:30 07/17/22 22:00 07/17/22 23:00 Temperature 96 F L 96 F L Pulse Rate 124 H Pulse Rate [Left P ulse Oximeter] 113 H 113 H Respiratory Rate 16 16 Blood Pressure [Le ft Arm] 132/84 132/84 Pulse Oximetry 96 96 Oxygen Delivery Me thod CPAP CPAP Oxygen Flow Rate Fraction of Inspir ed Oxygen 0.21 0.21 07/17/22 23:00 07/17/22 23:00 07/17/22 23:00 Temperature Pulse Rate Pulse Rate [Left P ulse Oximeter] 116 H Respiratory Rate 16 16 Blood Pressure [Le ft Arm] Pulse Oximetry 96 93 Oxygen Delivery Me thod CPAP Oxygen Flow Rate Fraction of Inspir ed Oxygen 0.21 07/17/22 23:00 07/18/22 03:00 Temperature 97.6 F 96.9 F L Pulse Rate Pulse Rate [Left P ulse Oximeter] 116 H 125 H Respiratory Rate 16 18 Blood Pressure [Le ft Arm] 151/86 H 174/87 H Pulse Oximetry 93 91 Oxygen Delivery Me thod CPAP CPAP Oxygen Flow Rate Fraction of Inspir ed Oxygen 0.21 0.21 Labs Labs: Laboratory Results - last 24 hr 07/17/22 07/17/22 07/17/22 11:20 11:20 11:20 WBC RBC Hgb Hct MCV MCH MCHC RDW Coeff of Manny Plt Count Neut % (Auto) Lymph % (Auto) [place] % (Auto) Eos % (Auto) Baso % (Auto) Neut # (Auto) Lymph # (Auto) [place] # (Auto) Eos # (Auto) Baso # (Auto) Abs Immat Gran (auto) Imm/Tot Granulo (auto) ABG pH 7.48 H ABG pCO2 36 ABG pO2 75.4 L ABG HCO3 27 ABG Total CO2 25 ABG O2 Saturation 97 ABG Base Excess 3.2 H Sodium 141 Potassium 4.4 Chloride 110 Carbon Dioxide 22 BUN 13 Creatinine 0.4 L Estimated Creat Clear 45.78 Estimated GFR 109 Glucose 141 H Calcium 8.9 Phosphorus 3.5 Magnesium 2.1 Ammonia 24.0 NT-Pro-B Natriuret Pep 1960 H Procalcitonin 0.07 07/18/22 06:55 WBC 8.11 RBC 3.12 L Hgb 8.2 L Hct 27.7 L MCV 89 MCH 26 MCHC 30 L RDW Coeff of Manny 17.3 H Plt Count 316 Neut % (Auto) 79.5 H Lymph % (Auto) 8.4 L [place] % (Auto) 9.9 Eos % (Auto) 1.4 Baso % (Auto) 0.7 Neut # (Auto) 6.40 Lymph # (Auto) 0.70 L [place] # (Auto) 0.80 Eos # (Auto) 0.11 Baso # (Auto) 0.06 Abs Immat Gran (auto) 0.01 Imm/Tot Granulo (auto) 0.1 ABG pH ABG pCO2 ABG pO2 ABG HCO3 ABG Total CO2 ABG O2 Saturation ABG Base Excess Sodium Potassium Chloride Carbon Dioxide BUN Creatinine Estimated Creat Clear Estimated GFR Glucose Calcium Phosphorus Magnesium Ammonia NT-Pro-B Natriuret Pep Procalcitonin
[2022-07-18 07:27] LABS: Prothrombin Time 15.9 Seconds
[2022-07-18] MEDS: METOPROLOL TARTRATE 1 MG/ML inj 5 MG IVP (08:16)
[2022-07-18] MEDS: SODIUM CHLORIDE 0.9 % (FLUSH) 10 ML SYRINGE 5 ML IVF ×5 (08:16→13:23)
[2022-07-18 08:23] LABS: Chloride* 105 mmol/L (96-114)
[2022-07-18 08:24] LABS: Potassium* 3.9 mmol/L (3.6-5.1); Sodium* 139 mmol/L (135-149)
[2022-07-18 08:26] LABS: Carbon Dioxide* 25 mmol/L (20-32); Creatinine* 0.4 mg/dL (0.5-1.5); Est. Creatinine Clearance* 45.78; Estimated Glomerular Filt Rate 109 ml/min
[2022-07-18 08:27] LABS: Blood Urea Nitrogen* 11 mg/dL (7-30); Calcium* 8.4 mg/dL (8.4-10.6); Glucose* 180 mg/dL (60-115); Magnesium* 1.8 mg/dL (1.5-2.6); Phosphorus* 3.9 mg/dL (2.5-4.5); Triglycerides* 115 mg/dL (40-149)
[2022-07-18] MEDS: FUROSEMIDE 10 MG/ML inj 20 MG IVP (08:46)
[2022-07-18] MEDS: PANTOPRAZOLE SODIUM 40 MG INJ IVP (08:46)
[2022-07-18] MEDS: cefTRIAXone 1 GM in 0.9 % SODIUM CHLORIDE Mini-bag 100 ML IVPB (10:48)
[2022-07-18] MEDS: 0.9 % SODIUM CHLORIDE 250 ml IV (11:09)
[2022-07-18 11:13] LABS: ABG PCO2 37 mmHG (35-45); Base Excess ABG 5.4 mmol/L (-3.0-3.0); HCO3 ABG 29 mmol/L (21-28); Oxygen Saturation ABG 88 % (92-100); PO2 ABG 54.3 mmHG (80-105); TCO2 ABG 27 mmol/l (21-30)
[2022-07-18] MEDS: AZITHROMYCIN 500 MG in 0.9 % SODIUM CHLORIDE 250 ml 250 ML 255 MG IVPB (11:45)
[2022-07-18] MEDS: LORazepam 2 MG/ML inj 1 MG IVP (13:22)
[2022-07-18] MEDS: dexAMETHasone 10 MG/ML inj IVP (13:22)
--- NOTE | 2022-07-18 15:28 | P.DS_ITS ---
DS: Providers Provider Date Seen: 07/18/22 Date of admission: 07/06/22 21:27 Primary care physician: Eddie Salcedo MD Admitting Clinician: Augusta Huerta MD Consults: 07/06/22 21:27 Consult to [employer] [CONS] Routine Comment: Reason for Consult:: Social Service Consult 07/08/22 10:33 Consult to Nutrition [CONS] Routine Comment: Reason for consult:: Miscellaneous Comment: Decreased intake due to delirium tremens from alcohol withdrawal 07/14/22 10:16 Consult to Respiratory Therapy [CONS] Routine Comment: Reason(s) for RT Consult:: Consult 07/15/22 08:55 Consult to Nutrition [CONS] Routine Comment: Reason for consult:: Miscellaneous Comment: TPN Attending Physician on discharge: Augusta Huerta MD Date of Discharge: 07/18/22 DS: Diagnosis Discharge Diagnosis (1) Acute respiratory failure, unspecified whether with hypoxia or hypercapnia: Status: Acute Problem details: with worsening Pa02 and profound encephalopathy. concern for ongoing respiratory collapse, protection of her own airway - she was intubated approximately 3:20 p.m. on 07/18/2022. There is intent for transfer, were awaiting transport. she was given versed and paralyzed, now on a propofol gtt. transport vent: FiO2 at 50%, TV 450, 10 for rate and pressures. End tidal is 38. no complications. (2) Encephalopathy acute: Status: Acute Problem details: Primary problem appears to be severe alcohol withdrawal/delirium tremens. Likely toxic metabolic encephalopathy. Patient has been slow to wake up. Try to taper off of sedating medications. May benefit from neurologic evaluation and EEG. Unable to transfer patient is due to tertiary care hospital bed limitations in this region. Optimize supportive cares (3) Cirrhosis, alcoholic: Status: Acute Problem details: 07/07/2022: MELD 3.0 score of 20. MELD Na score 23. MELD score of 22. (4) Coagulation disorder: Status: Acute Problem details: elevated INR; repeat coags, abd u/s demonstrated hepatic steatosis (5) Unspecified essential hypertension: Status: Acute Problem details: trend/monitor. (6) Alcohol use disorder, severe, dependence: Status: Acute Problem details: Patient acknowledges drinking 1 pt of vodka daily up until this admission. Our transition social worker is to give info on treatment centers. Family reports multiple previous alcohol treatment programs (7) History of Leonardo-en-Y gastric bypass: Status: Acute Problem details: January 2013 DS: Summary Hospital Course Hospital Course: HOSPITALIST TRANSFER SUMMARY ATTENDING PHYSICIAN: Augusta Huerta MD REASON FOR TRANSFER Worsening respiratory collapse Intubated, need for ICU level care Alcohol withdrawal Profound encephalopathy BRIEF HOSPITAL COURSE: Sue has been on our service for 13 days. Initially admitted for a GI bleed, intoxicated, severe abdominal pain. The GI bleed spontaneously resolved. She only needed 2 units of packed red cells. This was a lower GI bleed, likely an acute on chronic duodenitis from her chronic alcohol intake. Soon after discharge she into alcohol withdrawals and delirium tremens. She was treated with phenobarbital and lorazepam. She was tachycardic, hypertensive, agitated and encephalopathic. As we weaned her withdrawal meds, her encephalopathy did not improve. In fact she became stridorous and using accessory muscles consistent with EDAC (excessive dynamic airway collapse), so CPAP was initiated. She maintained her sats, however today, 07/18/2022, we noted episodes of apnea that were worsening and PaO2 in the 50s despite continuous CPAP therapy. In discussion with Dr. Green, ICU attending at [facility], we discussed her encephalopathy and likely risk for aspiration and airway protection. The ICU team recommended intubation and transfer. Our nurse boring and filling machine operator assisted with RT and successfully intubated her on the afternoon of 07/18/2022. There were no complications, she is on her transport vent with an FiO2 of 50%, 450 mL tidal volume and a rate of 10 in pressure of 10. Her end-tidal CO2 is 38. She is on a propofol drip. Her vitals are stable. In summary, Sue's alcohol abuse led to a recurrent duodenitis that precipitated a GI bleed and abdominal pain that brought her to the ED on July 06. She was given blood and IV Protonix, went into alcohol withdrawal and this is been a complicated prolonged course of withdrawal. She has medical history of depression, opioid use with Suboxone prescriptions after treatment, hypertension, hyperlipidemia and obesity with likely hypoventilation obstructive sleep apnea all complicating her withdrawal and encephalopathy. SERVICES NOT AVAILABLE HERE THAT HIS PATIENT NEEDS: Neurology, EEG ICU cares related to her respiratory failure Multi disciplinary approach ACCEPTING PHYSICIAN/SERVICE/LOCATION: Dr. Green MEDICATIONS/DRIPS/LINES: AT TIME OF TRANSFER: IV Lopressor, Protonix Subcu Lovenox IV drip of propofol Scheduled nebs 1 dose of Decadron today 07/18/2022 Azithromycin and ceftriaxone started today for presumed aspiration pneumonitis Weighted feeding tube feeds PICC line and peripheral IV in place Allen in place VITAL SIGN, MEDICATION, LAB/MICRO, IMAGING SUMMARY (full details available in account tabs or by records request) Please see printed record with patient and pushed radiographic images REVIEW OF SYSTEMS Unchanged. PHYSICAL EXAM: CONSTITUTIONAL: VITAL SIGNS: see record. Exam unchanged from earlier with notable exceptions: Now sedated, intubated. DISPOSITION: Transferred to [facility], [facility] Time spent on discharge >30 minutes. This includes speaking with accepting physician; family/patient and coordinating meds/drips for transfer Status at Discharge Functional status at discharge: bed bound Overall status at discharge: other Time Spent with Patient Time attestation: Total time spent providing and/or coordinating discharge services: Time spent: Greater than 30 minutes Exam Const: Vital Signs, click to edit/add: Vital Signs - 24 hr 07/17/22 18:09 07/17/22 18:09 07/17/22 20:30 Temperature 97.8 F 96 F L Pulse Rate Pulse Rate [Left P ulse Oximeter] 104 H 113 H Respiratory Rate 14 16 Blood Pressure [Le ft Arm] 132/84 Pulse Oximetry 93 93 96 Oxygen Delivery Me thod CPAP CPAP Fraction of Inspir ed Oxygen 0.21 07/17/22 22:00 07/17/22 23:00 07/17/22 23:00 Temperature 96 F L Pulse Rate 124 H Pulse Rate [Left P ulse Oximeter] 113 H Respiratory Rate 16 Blood Pressure [Le ft Arm] 132/84 Pulse Oximetry 96 96 Oxygen Delivery Me thod CPAP Fraction of Inspir ed Oxygen 0.21 07/17/22 23:00 07/17/22 23:00 07/17/22 23:00 Temperature 97.6 F Pulse Rate Pulse Rate [Left P ulse Oximeter] 116 H 116 H Respiratory Rate 16 16 16 Blood Pressure [Le ft Arm] 151/86 H Pulse Oximetry 93 93 Oxygen Delivery Me thod CPAP CPAP Fraction of Inspir ed Oxygen 0.21 0.21 07/18/22 03:00 07/18/22 07:24 07/18/22 07:24 Temperature 96.9 F L 97.6 F Pulse Rate 118 H Pulse Rate [Left P ulse Oximeter] 125 H 114 H Respiratory Rate 18 14 Blood Pressure [Le ft Arm] 174/87 H 164/90 H Pulse Oximetry 91 91 Oxygen Delivery Me thod CPAP CPAP Fraction of Inspir ed Oxygen 0.21 07/18/22 07:28 07/18/22 07:32 07/18/22 07:32 Temperature Pulse Rate Pulse Rate [Left P ulse Oximeter] 118 H Respiratory Rate Blood Pressure [Le ft Arm] Pulse Oximetry 91 90 Oxygen Delivery Me thod CPAP Fraction of Inspir ed Oxygen 07/18/22 07:32 07/18/22 09:57 07/18/22 11:11 Temperature 97.6 F Pulse Rate Pulse Rate [Left P ulse Oximeter] 114 H Respiratory Rate 14 Blood Pressure [Le ft Arm] 164/90 H Pulse Oximetry 91 Oxygen Delivery Me thod CPAP CPAP Fraction of Inspir ed Oxygen 0.21 0.21 07/18/22 11:20 Temperature 98.4 F Pulse Rate Pulse Rate [Left P ulse Oximeter] 110 H Respiratory Rate 15 Blood Pressure [Le ft Arm] 137/80 Pulse Oximetry 95 Oxygen Delivery Me thod CPAP Fraction of Inspir ed Oxygen DS: Data Data Completed and Pending Labs on day of discharge: Labs from last 24 hours 07/18/22 07/18/22 07/18/22 11:10 06:55 06:55 WBC RBC Hgb Hct MCV MCH MCHC RDW Coeff of Manny Plt Count Neut % (Auto) Lymph % (Auto) [place] % (Auto) Eos % (Auto) Baso % (Auto) Neut # (Auto) Lymph # (Auto) [place] # (Auto) Eos # (Auto) Baso # (Auto) Abs Immat Gran (auto) Imm/Tot Granulo (auto) INR 1.20 H ABG pH 7.50 H ABG pCO2 37 ABG pO2 54.3 L ABG HCO3 29 H ABG Total CO2 27 ABG O2 Saturation 88 L ABG Base Excess 5.4 H Sodium 139 Potassium 3.9 Chloride 105 Carbon Dioxide 25 BUN 11 Creatinine 0.4 L Estimated Creat Clear 45.78 Estimated GFR 109 Glucose 180 H Calcium 8.4 Phosphorus 3.9 Magnesium 1.8 Prealbumin Triglycerides 115 07/18/22 07/18/22 06:55 06:55 WBC 8.11 RBC 3.12 L Hgb 8.2 L Hct 27.7 L MCV 89 MCH 26 MCHC 30 L RDW Coeff of Manny 17.3 H Plt Count 316 Neut % (Auto) 79.5 H Lymph % (Auto) 8.4 L [place] % (Auto) 9.9 Eos % (Auto) 1.4 Baso % (Auto) 0.7 Neut # (Auto) 6.40 Lymph # (Auto) 0.70 L [place] # (Auto) 0.80 Eos # (Auto) 0.11 Baso # (Auto) 0.06 Abs Immat Gran (auto) 0.01 Imm/Tot Granulo (auto) 0.1 INR ABG pH ABG pCO2 ABG pO2 ABG HCO3 ABG Total CO2 ABG O2 Saturation ABG Base Excess Sodium Potassium Chloride Carbon Dioxide BUN Creatinine Estimated Creat Clear Estimated GFR Glucose Calcium Phosphorus Magnesium Prealbumin Pending Triglycerides Discharge Plan Discharge Disposition: [facility] Date of Admission: 07/06/22 21:27 Primary Care Provider: Eddie Salcedo Condition: Unchanged Discharge Medications: Continued metoprolol tartrate 50 mg tablet 50 mg PO BID pravastatin 20 mg tablet 20 mg PO HS buspirone 10 mg tablet 20 mg PO TID Label Comments: TAKE 2 TABLETS BY MOUTH THREE TIMES DAILY Suboxone See Rx Instructions .ROUTE .COMPLEX Hold Instructions: Doctor's Order Rx Instructions: 8mg/2mg suboxone film SL BID; cyclobenzaprine 5 mg tablet 5 mg PO Q8H duloxetine 60 mg capsule,delayed release(DR/EC) 60 mg PO DAILY albuterol sulfate 90 mcg/actuation HFA aerosol inhaler 2 puff INHALATION Q4H PRN Label Comments: INHALE 2 PUFFS BY MOUTH EVERY 4 HOURS NEEDED FOR SHORTNESS OF BREATH hydroxyzine HCl 25 mg tablet 25 mg PO Q6H PRN Discharge Orders: Discharge Order (Routine); Ordered 07/18/22 Ordered By: Augusta Huerta Follow Up Appointments: Eddie Salcedo MD [Primary Care Provider] - Forms: [employer] Info Instructions Hospital Course: HOSPITALIST TRANSFER SUMMARY ATTENDING PHYSICIAN: Augusta Huerta MD REASON FOR TRANSFER Worsening respiratory collapse Intubated, need for ICU level care Alcohol withdrawal Profound encephalopathy BRIEF HOSPITAL COURSE: Sue has been on our service for 13 days. Initially admitted for a GI bleed, intoxicated, severe abdominal pain. The GI bleed spontaneously resolved. She only needed 2 units of packed red cells. This was a lower GI bleed, likely an acute on chronic duodenitis from her chronic alcohol intake. Soon after discharge she into alcohol withdrawals and delirium tremens. She was treated with phenobarbital and lorazepam. She was tachycardic, hypertensive, agitated and encephalopathic. As we weaned her withdrawal meds, her encephalopathy did not improve. In fact she became stridorous and using accessory muscles consistent with EDAC (excessive dynamic airway collapse), so CPAP was initiated. She maintained her sats, however today, 07/18/2022, we noted episodes of apnea that were worsening and PaO2 in the 50s despite continuous CPAP therapy. In discussion with Dr. Green, ICU attending at [facility], we discussed her encephalopathy and likely risk for aspiration and airway protection. The ICU team recommended intubation and transfer. Our nurse boring and filling machine operator assisted with RT and successfully intubated her on the afternoon of 07/18/2022. There were no complications, she is on her transport vent with an FiO2 of 50%, 450 mL tidal volume and a rate of 10 in pressure of 10. Her end-tidal CO2 is 38. She is on a propofol drip. Her vitals are stable. In summary, Sue's alcohol abuse led to a recurrent duodenitis that precipitated a GI bleed and abdominal pain that brought her to the ED on July 06. She was given blood and IV Protonix, went into alcohol withdrawal and this is been a complicated prolonged course of withdrawal. She has medical history of depression, opioid use with Suboxone prescriptions after treatment, hypertension, hyperlipidemia and obesity with likely hypoventilation obstructive sleep apnea all complicating her withdrawal and encephalopathy. SERVICES NOT AVAILABLE HERE THAT HIS PATIENT NEEDS: Neurology, EEG ICU cares related to her respiratory failure Multi disciplinary approach ACCEPTING PHYSICIAN/SERVICE/LOCATION: Dr. Green MEDICATIONS/DRIPS/LINES: AT TIME OF TRANSFER: IV Lopressor, Protonix Subcu Lovenox IV drip of propofol Scheduled nebs 1 dose of Decadron today 07/18/2022 Azithromycin and ceftriaxone started today for presumed aspiration pneumonitis Weighted feeding tube feeds PICC line and peripheral IV in place Allen in place VITAL SIGN, MEDICATION, LAB/MICRO, IMAGING SUMMARY (full details available in account tabs or by records request) Please see printed record with patient and pushed radiographic images REVIEW OF SYSTEMS Unchanged. PHYSICAL EXAM: CONSTITUTIONAL: VITAL SIGNS: see record. Exam unchanged from earlier with notable exceptions: Now sedated, intubated. DISPOSITION: Transferred to ICU, [facility] Time spent on discharge >30 minutes. This includes speaking with accepting physician; family/patient and coordinating meds/drips for transfer
[2022-07-18] MEDS: AA 5 %/CALCIUM/LYTES/DEXT 20 % 2,000 ML 50 ML IVPB (15:55)
--- NOTE | 2022-07-18 16:21 | PM.ANBPRC ---
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 Has a daughter in the area (estranged). Drinks daily; previous opioid dependence, now on suboxone. Smoking Status: Former smoker Do you use any of these nicotine containing products: Vaping Products Second hand tobacco smoke exposure: No How often do you have a drink containing alcohol: 4 or more times a week Alcohol type: hard liquor Alcohol type details: pint of Vodka daily How many standard drinks containing alcohol do you have on a typical day: 3 or 4 How often do you have six or more drinks on one occasion: Never AUDIT-C Alcohol total score: 5 Non-prescribed substance use: denies use Caffeine: Yes service: No Meds Home Medications and Allergies Home Medications Medication Instructions Recorded Confirmed Type Suboxone See Rx Instructions .Route .COMPLEX 03/23/22 07/06/22 History buspirone 10 mg tablet 20 mg PO TID 03/23/22 07/06/22 History cyclobenzaprine 5 mg tablet 5 mg PO Q8H 03/23/22 07/06/22 History duloxetine 60 mg capsule,delayed 60 mg PO DAILY 03/23/22 07/06/22 History release metoprolol tartrate 50 mg tablet 50 mg PO BID 03/23/22 07/07/22 History pravastatin 20 mg tablet 20 mg PO HS 03/23/22 07/07/22 History albuterol sulfate 90 mcg/actuation 2 puff inhalation Q4H PRN 07/06/22 07/07/22 History aerosol inhaler hydroxyzine HCl 25 mg tablet 25 mg PO Q6H PRN 07/06/22 07/06/22 History Allergies Allergy/AdvReac Type Severity Reaction Status Date / Time methylprednisolone Allergy Intermediate gi upset, Verified 03/23/22 02:36 tachycardia hydromorphone [From Dilaudid] Allergy Mild itching Verified 03/23/22 02:36 NSAIDS (Non-Steroidal Allergy Mild gastric Verified 03/23/22 02:36 Anti-Inflamma byass Results Labs Labs: Laboratory Results - last 24 hr 07/18/22 07/18/22 07/18/22 06:55 06:55 06:55 WBC 8.11 RBC 3.12 L Hgb 8.2 L Hct 27.7 L MCV 89 MCH 26 MCHC 30 L RDW Coeff of Manny 17.3 H Plt Count 316 Neut % (Auto) 79.5 H Lymph % (Auto) 8.4 L Meagher % (Auto) 9.9 Eos % (Auto) 1.4 Baso % (Auto) 0.7 Neut # (Auto) 6.40 Lymph # (Auto) 0.70 L Meagher # (Auto) 0.80 Eos # (Auto) 0.11 Baso # (Auto) 0.06 Abs Immat Gran (auto) 0.01 Imm/Tot Granulo (auto) 0.1 INR 1.20 H ABG pH ABG pCO2 ABG pO2 ABG HCO3 ABG Total CO2 ABG O2 Saturation ABG Base Excess Sodium 139 Potassium 3.9 Chloride 105 Carbon Dioxide 25 BUN 11 Creatinine 0.4 L Estimated Creat Clear 45.78 Estimated GFR 109 Glucose 180 H Calcium 8.4 Phosphorus 3.9 Magnesium 1.8 Triglycerides 115 07/18/22 11:10 WBC RBC Hgb Hct MCV MCH MCHC RDW Coeff of Manny Plt Count Neut % (Auto) Lymph % (Auto) Meagher % (Auto) Eos % (Auto) Baso % (Auto) Neut # (Auto) Lymph # (Auto) Meagher # (Auto) Eos # (Auto) Baso # (Auto) Abs Immat Gran (auto) Imm/Tot Granulo (auto) INR ABG pH 7.50 H ABG pCO2 37 ABG pO2 54.3 L ABG HCO3 29 H ABG Total CO2 27 ABG O2 Saturation 88 L ABG Base Excess 5.4 H Sodium Potassium Chloride Carbon Dioxide BUN Creatinine Estimated Creat Clear Estimated GFR Glucose Calcium Phosphorus Magnesium Triglycerides Vital Signs Vital Signs: Last Vital Signs Temp 98.4 F 07/18/22 11:20 Pulse 110 H 07/18/22 11:20 Resp 14 07/18/22 15:34 BP 137/80 07/18/22 11:20 Pulse Ox 95 07/18/22 11:20 O2 Del Method 07/18/22 11:20 O2 Flow Rate 2 07/17/22 07:50 FiO2 0.21 07/18/22 11:11 Weight: 96.524 kg Height: 160.02 cm Anesthesia Procedures Airway Patient Location: MedSurg/CCU Urgency: emergent Date: 07/18/22 Time: 15:15 APPRENTICESHIP REPRESENTATIVE: Julio C Urena Preferred by: ESTEVAN Preanesthetic Checklist: IV checked, site marked, risks and benefits discussed, monitors and equipment checked, pre-op evaluation, timeout performed and anesthesia consent Difficult Airway: No Indications for Airway Management: airway protection Spontaneous Ventilation: present Sedation Level: moderate (conscious sedation) Preoxygenated: Yes MILS Maintained Throughout: Yes Mask Difficulty Assessment: 0 - not attempted Planned Trial Extubation: No Final Airway Details: 7.0 tub utilized with glidescope 3 blade. Straightforward uncomplicated intubation. Tube secured at 21 at the teeth. + BBS, + ETCO2, + Visualization via glidescope. Final Airway Type: endotracheal airway Number of Attempts at Approach: 1 Dentition Unchanged: Yes
--- NOTE | 2022-07-18 16:27 | PC.NURSE ---
Discharge: Patient intubated by AGRICULTURAL EQUIPMENT TEST ENGINEER @ 1515, medications managed by AGRICULTURAL EQUIPMENT TEST ENGINEER and pharmacy, new IV placed in right wrist by AGRICULTURAL EQUIPMENT TEST ENGINEER. RT managed ventilator. Tube secured 21 @ teeth. Vitals monitored by RN. Patient discharged to [place] via EMS @ 1610, nurse to nurse given to KADEEM Suarez. Patient to be transferred to room 2041.
[2022-07-20 01:33] LABS: Prealbumin 7.2 mg/dL (20.0-40.0)
--- NOTE | 2022-07-22 18:17 | PM.IMPN1 ---
Progress Note: A&P Assessment and plan (1) Encephalopathy acute: Problem details: Primary problem appears to be severe alcohol withdrawal/delirium tremens. Likely toxic metabolic encephalopathy. Patient has been slow to wake up. Try to taper off of sedating medications. May benefit from neurologic evaluation and EEG. Unable to transfer patient is due to tertiary care hospital bed limitations in this region. [facility] supportive cares Status: Acute (2) Cirrhosis, alcoholic: Problem details: 07/07/2022: MELD 3.0 score of 20. MELD Na score 23. MELD score of 22. Status: Acute (3) Alcohol use disorder, severe, dependence: Problem details: Patient acknowledges drinking 1 pt of vodka daily up until this admission. Our social media campaign manager is to give info on treatment centers. Family reports multiple previous alcohol treatment programs Status: Acute (4) History of Leonardo-en-Y gastric bypass: Problem details: January 2013 Status: Acute (5) Superficial venous thrombosis of arm: Problem details: Basilic vein thrombosis of right arm. Catheter removed. VTE prophylaxis only Status: Acute (6) Sinus tachycardia: Problem details: Secondary to DTs. Monitor for other illness that could cause sinus tachycardia. Schedule metoprolol for blood pressure and heart rate control Status: Acute (7) Urinary retention: Problem details: Postvoid residual [address] for I&O monitoring until patient is no longer critically ill. Status: Acute (8) GI bleed: Problem details: Bleeding has resolved. VTE prophylaxis with enoxaparin has been initiated. Monitor for bleeding returning. Having nonbloody diarrhea now. Status: Acute (9) Anemia: Problem details: Previously anemia of chronic disease, now ABLA anemia. 1 U PRBC tx 07/06/22. 1 U PRBC tx 07/07/22. 1 U PRBC tx 07/08/2022. Stable Status: Acute Plan Will work on decreasing sedation to allow her to wake up. Time Spent With Patient Total time spent: total time is 40 minutes in critical care evaluation and management. Subjective Date Seen: 07/11/22 Interval history: Patient is seen in follow up of altered mental status from veronique beckett. Remains minimally responsive. Spontaneously moving all 4 extremities but not clearly purposeful movement. Does not open eyes or respond to voice. She does have increased movement when examined. Exam Narrative: Exam Narrative: She is somnolent with periods of active movement of arms and legs. No eye opening to touch or voice. Does not localize pain, pinching finger or toe but does increase movement. Respirations are notable for upper airway wheezing/stridor. This is positional, worse when supine. Lungs sounds with fairly good air movement. CV: S1S2 regular tachycardia. Mild generalized edema. Good peripheral perfusion. Const: Documenting provider has reviewed patient's vital signs: yes
--- NOTE | 2022-07-22 18:30 | PM.IMPN1 ---
Progress Note: A&P Assessment and plan (1) Encephalopathy acute: Problem details: Primary problem appears to be severe alcohol withdrawal/delirium tremens. Likely toxic metabolic encephalopathy. Patient has been slow to wake up. Try to taper off of sedating medications. May benefit from neurologic evaluation and EEG. Unable to transfer patient is due to tertiary care hospital bed limitations in this region. [facility] supportive cares Status: Acute (2) Disorder of upper airway: Problem details: Patient appears to have dysfunction of her upper airway with upper airway wheezing noted. This has much improved or resolved with CPAP at 5 cm of pressure. Not currently needing supplemental oxygen. Status: Acute (3) Volume overload state of heart: Problem details: Chest x-ray and echocardiogram suggests this. NT pro-BNP 760 07/10/2022. Monitor volume status closely. Status: Acute (4) Superficial venous thrombosis of arm: Problem details: Basilic vein thrombosis of right arm. Catheter removed. VTE prophylaxis only Status: Acute (5) Sinus tachycardia: Problem details: Monitor for other illness that could cause sinus tachycardia. Schedule metoprolol for blood pressure and heart rate control Status: Acute (6) Malnutrition: Problem details: Need to improve mental status the point where she can swallow. Place NG and start tube feedings if patient can tolerate Status: Acute (7) Fluid imbalance: Problem details: Continue to assess. Still needing furosemide to make adequate urine Status: Acute (8) Hypertension: Problem details: Continue to monitor. Not taking oral medication yet. IV metoprolol for rate control and blood pressure control Status: Acute (9) Cirrhosis, alcoholic: Problem details: 07/07/2022: MELD 3.0 score of 20. MELD Na score 23. MELD score of 22. Status: Acute (10) Delirium tremens: Problem details: Primary problem appeared to be delirium tremens. I believe that is clinically improved but she is neurologically not recovered. Working to taper off sedation to improve total of consciousness Status: Acute (11) GI bleed: Problem details: Bleeding has resolved. VTE prophylaxis with enoxaparin has been initiated. Monitor for bleeding returning. Having nonbloody diarrhea now. Status: Acute (12) Anemia: Problem details: Previously anemia of chronic disease, now ABLA anemia. 1 U PRBC tx 07/06/22. 1 U PRBC tx 07/07/22. 1 U PRBC tx 07/08/2022. Stable Status: Acute Plan Continue to manage pending transfer to tertiary care. Her encephalopathy is not improving much and this is very concerning Time Spent With Patient Total time spent: 45 minutes in critical care eval and management Subjective Date Seen: 07/17/22 Interval history: Patient is seen in follow up of veronique beckett and now encephalopathy. Despite minimal requirements for sedation she has not aroused much. Still very somnolent with episodes of non purposeful movements. Not responding to voice or touch reliably. No eye opening. Still having stridor when off CPAP. Exam Narrative: Exam Narrative: She does not arouse to voice or touch. She grimaces to pain but does not localize. She grimaces and gags and coughs with NG feeding tube placement. Respirations are clear on Cpap except a few basilar crackles. CV: S1S2 regular tachycardia. Abdomen is soft without obvious tenderness or mass. No significant edema. extremities are warm and well perfused Const: Documenting provider has reviewed patient's vital signs: yes
== END 2022-07-18 16:10 | disposition short-term general hospital (02) | DRG 377 ==
LOC: ED 20:28 → MEDSURG 07-07 09:29
PROVIDERS: Family Medicine; Internal Medicine; Admitting Provider Family Medicine; Emergency Provider Family Medicine; PCP Family Medicine; Visit Provider Family Medicine
DX: K29.81 Duodenitis with bleeding (principal); G92.8 Other toxic encephalopathy; J96.00 Acute respiratory failure, unspecified whether with hypoxia or hypercapnia; J69.0 Pneumonitis due to inhalation of food and vomit; F10.239 Alcohol dependence with withdrawal, unspecified; D62 Acute posthemorrhagic anemia; F10.231 Alcohol dependence with withdrawal delirium; J98.19 Other pulmonary collapse; E46 Unspecified protein-calorie malnutrition; I82.611 Acute embolism and thrombosis of superficial veins of right upper extremity; D68.9 Coagulation defect, unspecified; E66.2 Morbid (severe) obesity with alveolar hypoventilation; F33.2 Major depressive disorder, recurrent severe without psychotic features; F10.26 Alcohol dependence with alcohol-induced persisting amnestic disorder; F10.229 Alcohol dependence with intoxication, unspecified; Y90.6 Blood alcohol level of 120-199 mg/100 ml; K70.30 Alcoholic cirrhosis of liver without ascites; E87.6 Hypokalemia; R10.9 Unspecified abdominal pain; D63.8 Anemia in other chronic diseases classified elsewhere; F11.10 Opioid abuse, uncomplicated; F41.9 Anxiety disorder, unspecified; I10 Essential (primary) hypertension; Z98.84 Bariatric surgery status; F17.290 Nicotine dependence, other tobacco product, uncomplicated; R33.9 Retention of urine, unspecified; D72.819 Decreased white blood cell count, unspecified; R00.0 Tachycardia, unspecified; Z79.891 Long term (current) use of opiate analgesic; Z68.37 Body mass index [BMI] 37.0-37.9, adult; E87.70 Fluid overload, unspecified; F60.7 Dependent personality disorder; K31.83 Achlorhydria; M10.9 Gout, unspecified
CPT/HCPCS: 36415; 36430; 36573; 36600; 51702; 51798; 70450; 70551; 71045; 71260; 74177; 76705; 80048; 80053; 80076; 80306; 81001; 82077; 82140; 82248; 82330; 82728; 82803; 82947; 82962; 82977; 83540; 83550; 83605; 83690; 83735; 83880; 84100; 84132; 84134; 84145; 84443; 84478; 84484; 85018; 85025; 85027; 85379; 85610; 85651; 85730; 86140; 86850; 86900; 86901; 86922; 87040; 87086; 87635; 93005; 93306; 94640; 94660; 94761; 99284; 99285; A4221; A9153; A9270; B4185; B4189; C1751; C9113; J0330; J0456; J0574; J0696; J1100; J1650; J1940; J2060; J2270; J2560; J2704; J3411; J3475; J3480; J7042; J7050; J7120; P9016; Q9967; S0166; S4990

== ENCOUNTER 2022-07-18 15:56 | Outpatient (CLI) | payer BC, SELFPAY | END 2022-07-18 15:57 | disposition home or self-care (01) | LOC: AMB 08-17 05:50 | PROVIDERS: PCP Family Medicine; Visit Provider Emergency Medicine Emergency Medical Services | DX: K92.2 Gastrointestinal hemorrhage, unspecified (principal); F10.139 Alcohol abuse with withdrawal, unspecified | CPT/HCPCS: A0425; A0427 ==